=== PATIENT | female | born 1960 | race Caucasian/White ===

== ENCOUNTER 2019-12-24 15:28 | Outpatient (REF) | payer OTHER, SELFPAY ==
[2019-12-24 16:00] LABS: MANUAL DIFF FLAG NO
[2019-12-24 16:04] LABS: Basophils Percent Auto 0.5 % (0-2); Eosinophils Absolute Auto 0.1 X10*3/uL (0.0-0.4); Hematocrit 40.4 % (37-47); Hemoglobin 13.6 g/dl (12.0-16.0); Imm Gran Abs Auto 0.01 X10*3/uL (0.00-0.03); Imm Gran Pct Auto 0.2 % (0.0-0.4); Lymphocytes Absolute Auto 1.9 X10*3/uL (1.2-4.9); Lymphocytes Percent Auto 34.4 % (20-40); Mean Corpuscular HGB Conc 33.7 g/dl (31.0-35.0); Mean Corpuscular Hemoglobin 33.6 pg (27.0-33.0); Mean Corpuscular Volume 99.8 fL (80-98); Mean Platelet Volume 9.2 fL (9.4-12.3); Monocytes Absolute Auto 0.5 X10*3/uL (0.1-1.2); Neutrophils Absolute Auto 2.9 X10*3/uL (2.0-8.3); Neutrophils Percent Auto 53.9 % (45-73); Platelet Count 188 X10*3/uL (160-400); Red Blood Count 4.05 X10*6/uL (4.20-5.50); Red Cell Distribution Width 12.8 % (11.0-16.0); White Blood Count 5.5 X10*3/uL (4.8-10.8)
[2019-12-24 16:29] LABS: Alanine Aminotransferase 31 U/L (0-31); Albumin Level 4.1 g/dL (3.5-5.0); Alkaline Phosphatase 68 U/L (39-117); Anion Gap 11 (12-20); Aspartate Amino Transferase 28 U/L (5-31); Bilirubin Total 0.4 mg/dL (0.0-1.0); Blood Urea Nitrogen 16 mg/dL (9-16); C Reactive Protein 0.04 mg/dL (< or = 0.50); Carbon Dioxide 28 mmol/L (22-29); Chloride 106 mmol/L (96-108); Estimated Glomerular Filt Rate > 60; Glucose Random 92 mg/dL (60-115); Sodium 141 mmol/L (135-145); Total Protein 6.4 g/dL (6.5-8.0)
[2019-12-24 17:05] LABS: Erythrocyte Sedimentation Rate 2 MM/HR (0-20)
== END 2019-12-24 15:29 | disposition home or self-care (01) ==
LOC: HO.LAB 15:28
PROVIDERS: PCP Family Medicine; Visit Provider Student in an Organized Health Care Education/Training Program
DX: M05.9 Rheumatoid arthritis with rheumatoid factor, unspecified (principal); Z79.899 Other long term (current) drug therapy
CPT/HCPCS: 36415; 80053; 85025; 85652; 86140

== ENCOUNTER 2020-01-07 | Outpatient (REF) | payer OTHER, SELFPAY ==
[2020-01-07 13:49] LABS: MANUAL DIFF FLAG NO
[2020-01-07 13:57] LABS: Basophils Absolute Auto 0.1 X10*3/uL (0.0-0.2); Basophils Percent Auto 0.7 % (0-2); Eosinophils Percent Auto 0.4 % (0-4); Hematocrit 39.9 % (37-47); Hemoglobin 13.8 g/dl (12.0-16.0); Imm Gran Abs Auto 0.03 X10*3/uL (0.00-0.03); Imm Gran Pct Auto 0.4 % (0.0-0.4); Lymphocytes Absolute Auto 1.6 X10*3/uL (1.2-4.9); Lymphocytes Percent Auto 24.3 % (20-40); Mean Corpuscular HGB Conc 34.6 g/dl (31.0-35.0); Mean Corpuscular Hemoglobin 34.2 pg (27.0-33.0); Mean Corpuscular Volume 98.8 fL (80-98); Mean Platelet Volume 9.6 fL (9.4-12.3); Monocytes Absolute Auto 0.6 X10*3/uL (0.1-1.2); Monocytes Percent Auto 8.4 % (2-11); Neutrophils Absolute Auto 4.4 X10*3/uL (2.0-8.3); Neutrophils Percent Auto 65.8 % (45-73); Platelet Count 203 X10*3/uL (160-400); Red Blood Count 4.04 X10*6/uL (4.20-5.50); Red Cell Distribution Width 12.6 % (11.0-16.0); White Blood Count 6.7 X10*3/uL (4.8-10.8)
== END 2020-01-07 00:01 | disposition home or self-care (01) ==
LOC: HO.WFDLDS
PROVIDERS: Visit Provider Hospitalist
DX: L03.213 Periorbital cellulitis (principal)
CPT/HCPCS: 36415; 85025

== ENCOUNTER 2020-02-04 12:35 | Outpatient (REF) | payer OTHER, SELFPAY ==
--- NOTE | 2020-02-04 12:40 | MM_ITS ---
EXAMINATION: MM SCREENING DIGITAL BREAST TOMOSYNTHESIS, BILATERAL CLINICAL INFORMATION: Screening. Asymptomatic. The lifetime risk of breast cancer based on the Tyrer-Cuzick Model is 6%. COMPARISON: Mammography: 10/08/2018, 09/29/2017 TECHNIQUE: Digital breast tomosynthesis is performed in both the craniocaudal and mediolateral oblique views along with computer-aided detection (CAD). Synthesized 2D images are generated from the tomosynthesis. FINDINGS: There are scattered areas of fibroglandular density (ACR BI-RADS breast composition Category b). There are no significant masses, abnormal calcifications, or other abnormalities. The axilla and skin contours are unremarkable. No significant changes from prior studies. MM/MM tomosynthesis screening BI IMPRESSION: No mammographic evidence of malignancy. ASSESSMENT: BI-RADS 1: Negative RECOMMENDATION: Routine annual mammography screening. This patient's information was entered into a reminder system with a target due date for their next mammogram.
== END 2020-02-04 12:36 | disposition home or self-care (01) ==
LOC: HO.MAMMO 12:35
PROVIDERS: PCP Family Medicine; Visit Provider Family Medicine
DX: Z12.31 Encounter for screening mammogram for malignant neoplasm of breast (principal)
CPT/HCPCS: 77063; 77067

== ENCOUNTER → 2020-02-11 08:17 | Outpatient (BNVA) | payer OTHER, SELFPAY | PROVIDERS: PCP Family Medicine; Referring Provider Family Medicine; Visit Provider Student in an Organized Health Care Education/Training Program | DX: Z76.89 Persons encountering health services in other specified circumstances (principal) ==

== ENCOUNTER 2020-02-12 09:10 | Outpatient (REF) | payer OTHER, SELFPAY ==
--- NOTE | 2020-02-12 09:20 | XR_ITS ---
EXAMINATION: XR SHOULDER, RIGHT CLINICAL INFORMATION: M67.911 - Unspecified disorder of synovium and tendon, right shoulder COMPARISON: None TECHNIQUE: Right shoulder is imaged in 4 views. FINDINGS: There is no fracture, dislocation, or destructive process. The glenohumeral joint appears normal. The acromioclavicular alignment is normal. There is a punctate calcification adjacent to the greater tuberosity. This may be beyond the rotator cuff insertion. XR/XR shoulder RT min 2V IMPRESSION: Punctate calcification near distal rotator cuff. No bony abnormality.
== END 2020-02-12 09:11 | disposition home or self-care (01) ==
LOC: HO.XRAY 09:10
PROVIDERS: PCP Family Medicine; Visit Provider Student in an Organized Health Care Education/Training Program
DX: M67.911 Unspecified disorder of synovium and tendon, right shoulder (principal)
CPT/HCPCS: 73030

== ENCOUNTER 2020-05-01 11:03 | Outpatient (REF) | payer OTHER, SELFPAY ==
[2020-05-01 11:32] LABS: MANUAL DIFF FLAG NO
[2020-05-01 11:35] LABS: Basophils Absolute Auto 0.1 X10*3/uL (0.0-0.2); Basophils Percent Auto 0.6 % (0-2); Eosinophils Absolute Auto 0.4 X10*3/uL (0.0-0.4); Eosinophils Percent Auto 4.3 % (0-4); Hematocrit 41.2 % (37-47); Imm Gran Abs Auto 0.02 X10*3/uL (0.00-0.03); Imm Gran Pct Auto 0.2 % (0.0-0.4); Lymphocytes Absolute Auto 1.8 X10*3/uL (1.2-4.9); Lymphocytes Percent Auto 20.6 % (20-40); Mean Corpuscular Hemoglobin 33.2 pg (27.0-33.0); Mean Corpuscular Volume 97.6 fL (80-98); Mean Platelet Volume 8.8 fL (9.4-12.3); Monocytes Absolute Auto 0.5 X10*3/uL (0.1-1.2); Monocytes Percent Auto 6.1 % (2-11); Neutrophils Absolute Auto 5.9 X10*3/uL (2.0-8.3); Neutrophils Percent Auto 68.2 % (45-73); Platelet Count 340 X10*3/uL (160-400); Red Blood Count 4.22 X10*6/uL (4.20-5.50); Red Cell Distribution Width 12.1 % (11.0-16.0); White Blood Count 8.7 X10*3/uL (4.8-10.8)
[2020-05-01 12:23] LABS: Alanine Aminotransferase 18 U/L (0-31); Albumin Level 4.1 g/dL (3.5-5.0); Alkaline Phosphatase 86 U/L (39-117); Anion Gap 13 (12-20); Aspartate Amino Transferase 20 U/L (5-31); Bilirubin Total 0.6 mg/dL (0.0-1.0); Blood Urea Nitrogen 18 mg/dL (9-16); Calcium 9.2 mg/dL (8.4-10.2); Carbon Dioxide 27 mmol/L (22-29); Chloride 104 mmol/L (96-108); Estimated Glomerular Filt Rate > 60; Glucose Random 123 mg/dL (60-115); Potassium 4.7 mmol/L (3.3-5.1); Sodium 139 mmol/L (135-145); Total Protein 7.1 g/dL (6.5-8.0)
[2020-05-01 12:27] LABS: Erythrocyte Sedimentation Rate 27 MM/HR (0-20)
== END 2020-05-01 11:04 | disposition home or self-care (01) ==
LOC: HO.LAB 11:03
PROVIDERS: PCP Family Medicine; Visit Provider Student in an Organized Health Care Education/Training Program
DX: M05.9 Rheumatoid arthritis with rheumatoid factor, unspecified (principal)
CPT/HCPCS: 36415; 80053; 85025; 85652; 86140

== ENCOUNTER 2020-05-05 10:56 | Outpatient (REF) | payer OTHER, SELFPAY ==
--- NOTE | ~2020-05-05 | CT_ITS ---
EXAMINATION: CT CHEST WITHOUT CONTRAST CLINICAL INFORMATION: Abnormal findings of lung malin COMPARISON: 05/03/2018 TECHNIQUE: Multidetector volumetric CT imaging of the chest was done. Axial MIP volume rendering provided. Sagittal and coronal reformatted images were obtained. This CT examination was performed using dose optimization techniques as appropriate, variously including the following: *Automated exposure control *Adjustment of mA and/or kV according to patient size (this includes techniques or standardized protocols for targeted exams where dose is matched to indication/reason for exam; i.e. 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 Again seen is upper lobe predominant paraseptal emphysema. Again seen are areas of peripheral interlobular septal thickening and reticulation, greatest along the right anterior mediastinal margin. Overall the degree and distribution are similar to the prior study 05/03/2018. No honeycombing is seen. 5 mm left lower lobe pulmonary nodule image 313/580. Inferiorly there is an additional 5 mm left lower lobe nodule in image 382/580. These are both unchanged. There is a 2 to 3 mm right lower lobe nodule in image 248, unchanged. There is a punctate 1 mm right upper lobe nodule adjacent the fissure in image 213, unchanged. There is focal groundglass opacity and reticulation in the posterior periphery of the superior segment of the left lower lobe in image 214. Again seen is a background of mosaic lung attenuation with more conspicuous groundglass opacity in the right upper lobe. MEDIASTINUM: Again seen are prominent mediastinal lymph nodes, not convincingly changed from prior study. Among the largest are a 1.6 x 1.0 cm subcarinal lymph node and a 1.4 x 1.0 cm precarinal lymph node. Each of these measure slightly smaller than on the prior study. PLEURA: There is no pleural effusion. No pleural mass or thickening. AXILLA: No lymphadenopathy. UPPER ABDOMEN: Unremarkable. OSSEOUS STRUCTURES: Unremarkable. CT/CT chest wo con IMPRESSION: Similar findings to the prior study 05/03/2018. Again seen are findings of emphysema and some peripheral interlobular septal thickening and reticulation without honeycombing. There is a background of mosaic lung attenuation consistent with small airways disease. Again seen are bilateral subcentimeter pulmonary nodules, unchanged.
== END 2020-05-05 10:57 | disposition home or self-care (01) ==
LOC: HO.CT 10:56
PROVIDERS: PCP Family Medicine; Visit Provider Family Medicine
DX: R91.8 Other nonspecific abnormal finding of lung field (principal)
CPT/HCPCS: 71250

== ENCOUNTER 2020-07-10 09:12 | Outpatient (REF) | payer OTHER, SELFPAY ==
[2020-07-10 10:18] LABS: MANUAL DIFF FLAG NO
[2020-07-10 10:42] LABS: Basophils Percent Auto 0.4 % (0-2); Eosinophils Absolute Auto 0.3 X10*3/uL (0.0-0.4); Eosinophils Percent Auto 3.6 % (0-4); Hematocrit 41.5 % (37-47); Hemoglobin 13.9 g/dl (12.0-16.0); Imm Gran Abs Auto 0.03 X10*3/uL (0.00-0.03); Imm Gran Pct Auto 0.4 % (0.0-0.4); Lymphocytes Absolute Auto 1.9 X10*3/uL (1.2-4.9); Lymphocytes Percent Auto 27.1 % (20-40); Mean Corpuscular HGB Conc 33.5 g/dl (31.0-35.0); Mean Corpuscular Hemoglobin 32.7 pg (27.0-33.0); Mean Corpuscular Volume 97.6 fL (80-98); Monocytes Absolute Auto 0.5 X10*3/uL (0.1-1.2); Monocytes Percent Auto 6.9 % (2-11); Neutrophils Absolute Auto 4.3 X10*3/uL (2.0-8.3); Neutrophils Percent Auto 61.6 % (45-73); Platelet Count 225 X10*3/uL (160-400); Red Blood Count 4.25 X10*6/uL (4.20-5.50); Red Cell Distribution Width 13.5 % (11.0-16.0)
[2020-07-10 11:03] LABS: Alanine Aminotransferase 32 U/L (0-31); Albumin Level 4.3 g/dL (3.5-5.0); Alkaline Phosphatase 95 U/L (39-117); Anion Gap 16 (12-20); Aspartate Amino Transferase 24 U/L (5-31); Bilirubin Total 0.7 mg/dL (0.0-1.0); Blood Urea Nitrogen 14 mg/dL (9-16); Calcium 9.3 mg/dL (8.4-10.2); Carbon Dioxide 23 mmol/L (22-29); Chloride 107 mmol/L (96-108); Estimated Glomerular Filt Rate > 60; Glucose Random 106 mg/dL (60-115); Potassium 4.6 mmol/L (3.3-5.1); Sodium 141 mmol/L (135-145); Total Protein 6.8 g/dL (6.5-8.0)
[2020-07-10 11:21] LABS: Erythrocyte Sedimentation Rate 4 MM/HR (0-20)
== END 2020-07-10 09:13 | disposition home or self-care (01) ==
LOC: HO.LAB 09:12
PROVIDERS: PCP Family Medicine; Visit Provider Family Medicine
DX: J44.9 Chronic obstructive pulmonary disease, unspecified (principal); M06.9 Rheumatoid arthritis, unspecified; R42 Dizziness and giddiness
CPT/HCPCS: 36415; 80053; 82550; 85025; 85652

== ENCOUNTER 2020-09-18 13:05 | Outpatient (REF) | payer OTHER, SELFPAY ==
[2020-09-18 13:30] LABS: MANUAL DIFF FLAG NO
[2020-09-18 13:36] LABS: Basophils Percent Auto 0.3 % (0-2); Eosinophils Absolute Auto 0.1 X10*3/uL (0.0-0.4); Eosinophils Percent Auto 2.1 % (0-4); Hematocrit 41.6 % (37-47); Hemoglobin 14.3 g/dl (12.0-16.0); Imm Gran Abs Auto 0.02 X10*3/uL (0.00-0.03); Imm Gran Pct Auto 0.3 % (0.0-0.4); Lymphocytes Absolute Auto 2.3 X10*3/uL (1.2-4.9); Lymphocytes Percent Auto 34.5 % (20-40); Mean Corpuscular HGB Conc 34.4 g/dl (31.0-35.0); Mean Corpuscular Hemoglobin 33.9 pg (27.0-33.0); Mean Corpuscular Volume 98.6 fL (80-98); Mean Platelet Volume 8.9 fL (9.4-12.3); Monocytes Absolute Auto 0.5 X10*3/uL (0.1-1.2); Monocytes Percent Auto 7.2 % (2-11); Neutrophils Absolute Auto 3.6 X10*3/uL (2.0-8.3); Neutrophils Percent Auto 55.6 % (45-73); Platelet Count 225 X10*3/uL (160-400); Red Blood Count 4.22 X10*6/uL (4.20-5.50); Red Cell Distribution Width 13.1 % (11.0-16.0); White Blood Count 6.5 X10*3/uL (4.8-10.8)
[2020-09-18 13:54] LABS: Alanine Aminotransferase 26 U/L (0-31); Albumin Level 4.3 g/dL (3.5-5.0); Alkaline Phosphatase 96 U/L (39-117); Anion Gap 14 (12-20); Aspartate Amino Transferase 21 U/L (5-31); Bilirubin Total 0.6 mg/dL (0.0-1.0); Blood Urea Nitrogen 21 mg/dL (9-16); C Reactive Protein 0.06 mg/dL (< or = 0.50); Calcium 9.9 mg/dL (8.4-10.2); Carbon Dioxide 24 mmol/L (22-29); Chloride 105 mmol/L (96-108); Estimated Glomerular Filt Rate 55; Glucose Random 122 mg/dL (60-115); Potassium 4.4 mmol/L (3.3-5.1); Sodium 139 mmol/L (135-145); Total Protein 6.8 g/dL (6.5-8.0)
[2020-09-18 14:33] LABS: Erythrocyte Sedimentation Rate 4 MM/HR (0-20)
== END 2020-09-18 13:06 | disposition home or self-care (01) ==
LOC: HO.LAB 13:05
PROVIDERS: PCP Family Medicine; Visit Provider Internal Medicine
DX: M05.9 Rheumatoid arthritis with rheumatoid factor, unspecified (principal)
CPT/HCPCS: 36415; 80053; 85025; 85652; 86140

== ENCOUNTER 2021-02-05 07:49 | Outpatient (REF) | payer OTHER, SELFPAY ==
--- NOTE | ~2021-02-05 | MM_ITS ---
EXAMINATION: MM SCREENING DIGITAL BREAST TOMOSYNTHESIS, BILATERAL CLINICAL INFORMATION: Screening. Asymptomatic. The lifetime risk of breast cancer based on the Tyrer-Cuzick Model is 7%. COMPARISON: Mammography: 02/04/2020, 10/08/2018, 09/29/2017 TECHNIQUE: Digital breast tomosynthesis is performed in both the craniocaudal and mediolateral oblique views along with computer-aided detection (CAD). Synthesized 2D images are generated from the tomosynthesis. FINDINGS: There are scattered areas of fibroglandular density (ACR BI-RADS breast composition Category b). There are no significant masses, abnormal calcifications, or other abnormalities. MM/MM tomosynthesis screening BI IMPRESSION: No mammographic evidence of malignancy. ASSESSMENT: BI-RADS 1: Negative RECOMMENDATION: Routine annual mammography screening. This patient's information was entered into a reminder system with a target due date for their next mammogram.
[2021-02-05 08:42] LABS: MANUAL DIFF FLAG NO
[2021-02-05 09:33] LABS: Basophils Percent Auto 0.6 % (0-2); Eosinophils Absolute Auto 0.2 X10*3/uL (0.0-0.4); Eosinophils Percent Auto 3.5 % (0-4); Hematocrit 40.3 % (37.0-47.0); Hemoglobin 13.5 g/dl (12.0-16.0); Imm Gran Abs Auto 0.01 X10*3/uL (0.00-0.03); Imm Gran Pct Auto 0.2 % (0.0-0.4); Lymphocytes Absolute Auto 1.5 X10*3/uL (1.2-4.9); Lymphocytes Percent Auto 28.1 % (20-40); Mean Corpuscular HGB Conc 33.5 g/dl (31.0-35.0); Mean Corpuscular Hemoglobin 33.8 pg (27.0-33.0); Mean Platelet Volume 9.3 fL (9.4-12.3); Monocytes Absolute Auto 0.5 X10*3/uL (0.1-1.2); Monocytes Percent Auto 8.4 % (2-11); Neutrophils Absolute Auto 3.2 x10*3/uL (2.0-8.3); Neutrophils Percent Auto 59.2 % (45-73); Platelet Count 225 X10*3/uL (160-400); Red Blood Count 3.99 X10*6/uL (4.20-5.50); Red Cell Distribution Width 12.6 % (11.0-16.0); White Blood Count 5.4 X10*3/uL (4.8-10.8)
[2021-02-05 10:02] LABS: Alanine Aminotransferase 46 U/L (0-31); Albumin Level 4.1 g/dL (3.5-5.0); Alkaline Phosphatase 94 U/L (39-117); Anion Gap 11 (12-20); Aspartate Amino Transferase 32 U/L (5-31); Bilirubin Total 0.3 mg/dL (0.0-1.0); Blood Urea Nitrogen 20 mg/dL (9-16); C Reactive Protein 0.05 mg/dL (< or = 0.50); Calcium 8.7 mg/dL (8.4-10.2); Carbon Dioxide 23 mmol/L (22-29); Chloride 111 mmol/L (96-108); Cholesterol 173 mg/dL; Estimated Glomerular Filt Rate > 60; Glucose Random 104 mg/dL (60-115); HDL Cholesterol 54 mg/dL; LDL Cholesterol Calculated 101 mg/dl; Potassium 4.4 mmol/L (3.3-5.1); Sodium 141 mmol/L (135-145); Total Protein 6.3 g/dL (6.5-8.0); Triglycerides 91 mg/dL
[2021-02-05 10:18] LABS: Erythrocyte Sedimentation Rate 3 MM/HR (0-20)
== END 2021-02-05 07:50 | disposition home or self-care (01) ==
LOC: HO.MAMMO 07:49
PROVIDERS: Absent Provider Internal Medicine; PCP Family Medicine; Visit Provider Family Medicine
DX: Z12.31 Encounter for screening mammogram for malignant neoplasm of breast (principal); M05.9 Rheumatoid arthritis with rheumatoid factor, unspecified
CPT/HCPCS: 36415; 77063; 77067; 80053; 80061; 85025; 85652; 86140

== ENCOUNTER 2021-06-01 08:26 | Outpatient (REF) | payer OTHER, SELFPAY ==
[2021-06-01 08:41] LABS: MANUAL DIFF FLAG NO
[2021-06-01 09:19] LABS: Basophils Percent Auto 0.6 % (0-2); Eosinophils Absolute Auto 0.3 X10*3/uL (0.0-0.4); Eosinophils Percent Auto 4.5 % (0-4); Hematocrit 39.2 % (37.0-47.0); Hemoglobin 13.2 g/dl (12.0-16.0); Imm Gran Abs Auto 0.02 X10*3/uL (0.00-0.03); Imm Gran Pct Auto 0.3 % (0.0-0.4); Lymphocytes Absolute Auto 1.9 X10*3/uL (1.2-4.9); Lymphocytes Percent Auto 28.9 % (20-40); Mean Corpuscular HGB Conc 33.7 g/dl (31.0-35.0); Mean Corpuscular Hemoglobin 33.7 pg (27.0-33.0); Mean Platelet Volume 9.2 fL (9.4-12.3); Monocytes Absolute Auto 0.6 X10*3/uL (0.1-1.2); Monocytes Percent Auto 8.6 % (2-11); Neutrophils Absolute Auto 3.8 x10*3/uL (2.0-8.3); Neutrophils Percent Auto 57.1 % (45-73); Platelet Count 230 X10*3/uL (160-400); Red Blood Count 3.92 X10*6/uL (4.20-5.50); White Blood Count 6.6 X10*3/uL (4.8-10.8)
[2021-06-01 09:42] LABS: Alanine Aminotransferase 31 U/L (0-31); Alkaline Phosphatase 88 U/L (39-117); Anion Gap 11 (12-20); Aspartate Amino Transferase 22 U/L (5-31); Bilirubin Total 0.2 mg/dL (0.0-1.0); Blood Urea Nitrogen 19 mg/dL (9-16); C Reactive Protein 0.06 mg/dL (< or = 0.50); Calcium 9.2 mg/dL (8.4-10.2); Carbon Dioxide 25 mmol/L (22-29); Chloride 110 mmol/L (96-108); Estimated Glomerular Filt Rate > 60; Glucose Random 107 mg/dL (60-115); Potassium 4.8 mmol/L (3.3-5.1); Sodium 141 mmol/L (135-145); Total Protein 6.4 g/dL (6.5-8.0)
[2021-06-01 10:06] LABS: Erythrocyte Sedimentation Rate 4 MM/HR (0-20)
== END 2021-06-01 08:27 | disposition home or self-care (01) ==
LOC: HO.LAB 08:26
PROVIDERS: PCP Family Medicine; Visit Provider Internal Medicine
DX: M05.9 Rheumatoid arthritis with rheumatoid factor, unspecified (principal)
CPT/HCPCS: 36415; 80053; 85025; 85652; 86140

== ENCOUNTER 2021-11-16 12:43 | Outpatient (REF) | payer OTHER, SELFPAY ==
[2021-11-16 13:15] LABS: MANUAL DIFF FLAG NO
[2021-11-16 13:53] LABS: Basophils Absolute Auto 0.1 X10*3/uL (0.0-0.2); Basophils Percent Auto 0.8 % (0-2); Eosinophils Absolute Auto 0.2 X10*3/uL (0.0-0.4); Eosinophils Percent Auto 3.3 % (0-4); Hematocrit 39.7 % (37.0-47.0); Hemoglobin 13.7 g/dl (12.0-16.0); Imm Gran Abs Auto 0.02 X10*3/uL (0.00-0.03); Imm Gran Pct Auto 0.3 % (0.0-0.4); Lymphocytes Absolute Auto 2.4 X10*3/uL (1.2-4.9); Lymphocytes Percent Auto 32.9 % (20-40); Mean Corpuscular HGB Conc 34.5 g/dl (31.0-35.0); Mean Corpuscular Hemoglobin 33.4 pg (27.0-33.0); Mean Corpuscular Volume 96.8 fL (80.0-98.0); Mean Platelet Volume 9.2 fL (9.4-12.3); Monocytes Absolute Auto 0.6 X10*3/uL (0.1-1.2); Monocytes Percent Auto 7.8 % (2-11); Neutrophils Absolute Auto 3.9 x10*3/uL (2.0-8.3); Neutrophils Percent Auto 54.9 % (45-73); Platelet Count 217 X10*3/uL (160-400); Red Cell Distribution Width 13.1 % (11.0-16.0); White Blood Count 7.2 X10*3/uL (4.8-10.8)
[2021-11-16 14:25] LABS: Alanine Aminotransferase 33 U/L (0-31); Albumin Level 4.3 g/dL (3.5-5.0); Alkaline Phosphatase 76 U/L (39-117); Anion Gap 15 (12-20); Aspartate Amino Transferase 24 U/L (5-31); Bilirubin Total 0.3 mg/dL (0.0-1.0); Blood Urea Nitrogen 16 mg/dL (9-16); C Reactive Protein 0.05 mg/dL (< or = 0.50); Calcium 9.6 mg/dL (8.4-10.2); Carbon Dioxide 25 mmol/L (22-29); Chloride 106 mmol/L (96-108); Cholesterol 182 mg/dL; Estimated Glomerular Filt Rate > 60; Glucose Random 99 mg/dL (60-115); HDL Cholesterol 60 mg/dL; LDL Cholesterol Calculated 93 mg/dl; Potassium 4.3 mmol/L (3.3-5.1); Sodium 142 mmol/L (135-145); Total Protein 6.8 g/dL (6.5-8.0); Triglycerides 146 mg/dL
[2021-11-16 14:37] LABS: Erythrocyte Sedimentation Rate 5 MM/HR (0-20)
[2021-11-16 15:49] LABS: Reflex LDLD? No
== END 2021-11-16 12:44 | disposition home or self-care (01) ==
LOC: HO.LAB 12:43
PROVIDERS: Nurse Practitioner Family; PCP Family Medicine; Visit Provider Internal Medicine
DX: M05.9 Rheumatoid arthritis with rheumatoid factor, unspecified (principal)
CPT/HCPCS: 36415; 80053; 80061; 85025; 85652; 86140

== ENCOUNTER 2022-01-25 10:52 | Outpatient (REF) | payer OTHER, SELFPAY ==
[2022-01-25 11:20] LABS: MANUAL DIFF FLAG NO
[2022-01-25 12:48] LABS: Basophils Absolute Auto 0.1 X10*3/uL (0.0-0.2); Basophils Percent Auto 0.7 % (0-2); Eosinophils Absolute Auto 0.5 X10*3/uL (0.0-0.4); Eosinophils Percent Auto 5.4 % (0-4); Hematocrit 41.6 % (37.0-47.0); Hemoglobin 14.1 g/dl (12.0-16.0); Imm Gran Abs Auto 0.04 X10*3/uL (0.00-0.03); Imm Gran Pct Auto 0.5 % (0.0-0.4); Lymphocytes Absolute Auto 2.1 X10*3/uL (1.2-4.9); Lymphocytes Percent Auto 24.1 % (20-40); Mean Corpuscular HGB Conc 33.9 g/dl (31.0-35.0); Mean Corpuscular Hemoglobin 33.2 pg (27.0-33.0); Mean Corpuscular Volume 97.9 fL (80.0-98.0); Mean Platelet Volume 9.6 fL (9.4-12.3); Monocytes Absolute Auto 0.7 X10*3/uL (0.1-1.2); Monocytes Percent Auto 8.5 % (2-11); Neutrophils Absolute Auto 5.3 x10*3/uL (2.0-8.3); Neutrophils Percent Auto 60.8 % (45-73); Platelet Count 207 X10*3/uL (160-400); Red Blood Count 4.25 X10*6/uL (4.20-5.50); Red Cell Distribution Width 12.4 % (11.0-16.0); White Blood Count 8.7 X10*3/uL (4.8-10.8)
[2022-01-25 13:41] LABS: Erythrocyte Sedimentation Rate 36 MM/HR (0-20)
[2022-01-26 14:47] LABS: CRP High Sensitivity >10.0 mg/L
== END 2022-01-25 10:53 | disposition home or self-care (01) ==
LOC: HO.LAB 10:52
PROVIDERS: PCP Internal Medicine; Visit Provider Internal Medicine
DX: M05.9 Rheumatoid arthritis with rheumatoid factor, unspecified (principal)
CPT/HCPCS: 36415; 85025; 85652; 86141

== ENCOUNTER 2022-02-07 09:08 | Outpatient (REF) | payer OTHER, SELFPAY ==
--- NOTE | ~2022-02-07 | US_ITS ---
EXAMINATION: US EXTRACRANIAL CAROTID DUPLEX, BILATERAL CLINICAL INFORMATION: Smoker, left carotid bruit COMPARISON: Carotid duplex on 05/08/2014 TECHNIQUE: Real-time ultrasound and Doppler techniques (integrating B-mode 2-D vascular images, Doppler spectral analysis and color-flow Doppler imaging) were utilized to interrogate the extracranial carotid arteries, the vertebral arteries and proximal subclavian arteries bilaterally. The degree of stenosis is determined by criteria similar to NASCET. FINDINGS: Right Side: 1. There is mild atherosclerotic plaque seen in the bifurcation/proximal ICA region. 2. The common carotid artery PSV proximally is 111 cm/s and distally 87 cm/s. 3. The proximal internal carotid artery velocities are 98 cm/s systolic and 23 cm/s diastolic. 4. The proximal external carotid artery PSV is 125 cm/s. 5. The vertebral artery shows antegrade flow. 6. The subclavian artery waveforms are normal. Left Side: 1. There is mild atherosclerotic plaque seen in the bifurcation/proximal ICA region. 2. The common carotid artery PSV proximally is 107 cm/s and distally 107 cm/s. 3. The proximal internal carotid artery velocities are 69 cm/s systolic and 21 cm/s diastolic. 4. The proximal external carotid artery PSV is 122 cm/s. 5. The vertebral artery shows antegrade flow. 6. The subclavian artery waveforms are normal. US/US carotid duplex BI IMPRESSION: 1. RIGHT: Minimal, non-hemodynamically significant stenosis of the proximal right internal carotid artery corresponding to a 0-49% stenosis by velocity criteria. 2. LEFT: Minimal, non-hemodynamically significant stenosis of the proximal left internal carotid artery corresponding to a 0-49% stenosis by velocity criteria. 3. There is no change in the category severity of disease when compared to the previous study dated 05/08/2014.
--- NOTE | ~2022-02-07 | US_ITS ---
EXAMINATION: US THYROID CLINICAL INFORMATION: Goiter. COMPARISON: Ultrasound thyroid 11/05/2019 and 01/17/2018. TECHNIQUE: Linear transducer grayscale and color Doppler examination with attention to the region of the thyroid. FINDINGS: SIZE: Measurements of the thyroid lobes and nodules are given in sagittal, anteroposterior and transverse dimensions respectively. Right Thyroid Lobe: 3.9 x 1.5 x 0.90 cm, volume 2.8 mL. Previously 4.9 x 1.5 x 0.98 cm, volume 3.7 mL. Parenchyma: The gland echotexture is homogeneous. Thyroid vascularity is normal. Left Thyroid Lobe: 3.8 x 1.3 x 1.4 cm, volume 3.6 mL. Previously 4.1 x 1.8 x 1.3 cm, volume 5.0 mL. Parenchyma: The gland echotexture is homogeneous. Thyroid vascularity is normal. Isthmus: 0.51 cm in maximum AP dimension. Previously 0.34 cm. Estimated total number of nodules greater than or equal to 1 cm: 1. Sole Leveler nodules are described as follows: 1. Location: Isthmus. Size: 0.43 x 0.18 x 0.40 cm, volume 0.02 mL. Previously: 0.38 x 0.21 x 0.33 cm, volume 0.01 mL. Nodule characteristics: ACR TI-RADS total points: 0. ACR TI-RADS category: 1. Significant change in size (>/= 20% in 2 dimensions and minimal increase of 2 mm or 50% or greater increase in volume): None. Change in features: None. Change in ACR TI-RADS risk category: Not applicable. 2. Location: Right superior. Size: 0.28 x 0.56 x 0.24 cm, volume 0.01 mL. Previously: 0.32 x 0.26 x 0.26 cm, volume 0.01 mL. Nodule characteristics: Composition: Cystic(0). ACR TI-RADS total points: 0. ACR TI-RADS category: 1. Significant change in size (>/= 20% in 2 dimensions and minimal increase of 2 mm or 50% or greater increase in volume): None. Change in features: None. Change in ACR TI-RADS risk category: Not applicable. 3. Location: Right mid. Size: 0.60 x 0.35 x 0.40 cm, volume 0.04 mL. Previously: 1.1 x 0.45 x 1.1 cm, volume 0.28 mL. Nodule characteristics: Composition: Cystic(0). ACR TI-RADS total points: 0. ACR TI-RADS category: 1. Significant change in size (>/= 20% in 2 dimensions and minimal increase of 2 mm or 50% or greater increase in volume): None. Change in features: None. Change in ACR TI-RADS risk category: Not applicable. 4. Location: Left mid. Size: 0.44 x 0.14 x 0.32 cm, volume 0.01 mL. Previously: 0.49 x 0.31 x 0.31 cm, volume 0.02 mL. Nodule characteristics: Composition: Cystic(0). ACR TI-RADS total points: 0. ACR TI-RADS category: 1. Significant change in size (>/= 20% in 2 dimensions and minimal increase of 2 mm or 50% or greater increase in volume): None. Change in features: None. Change in ACR TI-RADS risk category: Not applicable. 5. Location: Left mid. Size: 1.5 x 0.80 x 0.85 cm, volume 0.50 mL. Previously: 1.3 x 0.73 x 0.96 cm, volume 0.48 mL. Nodule characteristics: Composition: Cystic(0). ACR TI-RADS total points: 0. ACR TI-RADS category: 1. Significant change in size (>/= 20% in 2 dimensions and minimal increase of 2 mm or 50% or greater increase in volume): None. Change in features: None. Change in ACR TI-RADS risk category: Not applicable. NODES: No lymphadenopathy is seen in the tissue surrounding the thyroid gland. US/US thyroid IMPRESSION: Multiple thyroid nodules are essentially stable and nonsuspicious at this time. Recommend continued follow-up. ACR TI-RADS RECOMMENDATION REFERENCE: Ultrasound-guided fine-needle aspiration, followup ultrasound, no further follow up. * TR1 (0 point) and TR 2 (2 points): No FNA or follow up. * TR3 (3 points): FNA if more than or equal to 2.5 cm in maximum dimension, followup ultrasound in 1, 3 and 5 years if 1.5 to 2.4 cm in maximum dimension. * TR4 (4-6 points): FNA if more than or equal to 1.5 cm in maximum dimension, followup ultrasound in 1, 2, 3 and 5 years if 1 to 1.4 cm in maximum dimension. * TR5 (more than or equal to 7 points): FNA if more than or equal to 1 cm in maximum dimension, followup ultrasound every year for 5 years if 0.5 to 0.9 cm in maximum dimension. * TR3, TR4 or TR5 nodules that are below the size threshold for followup receive no follow up.
== END 2022-02-07 09:09 | disposition home or self-care (01) ==
LOC: HO.HMGCX 09:08
PROVIDERS: PCP Family Medicine; Visit Provider Family Medicine
DX: I63.232 Cerebral infarction due to unspecified occlusion or stenosis of left carotid arteries (principal); E04.2 Nontoxic multinodular goiter
CPT/HCPCS: 76536; 93880

== ENCOUNTER 2022-02-08 12:25 | Outpatient (REF) | payer OTHER, SELFPAY ==
--- NOTE | ~2022-02-08 | MM_ITS ---
EXAMINATION: MM SCREENING DIGITAL BREAST TOMOSYNTHESIS, BILATERAL CLINICAL INFORMATION: Screening. Asymptomatic. The lifetime risk of breast cancer based on the Tyrer-Cuzick Model is 7%. COMPARISON: Mammography: 02/05/2021, 02/04/2020, 10/08/2018, 09/29/2017 TECHNIQUE: Digital breast tomosynthesis is performed in both the craniocaudal and mediolateral oblique views along with computer-aided detection (CAD). Synthesized 2D images are generated from the tomosynthesis. FINDINGS: There are scattered areas of fibroglandular density (ACR BI-RADS breast composition Category b). There are scattered bilateral benign round and rim calcifications. Right breast shows no interval mass or architectural abnormality. The bilateral axilla and skin contours are unremarkable. There is a faint smooth 0.7 cm focal nodular asymmetric density 2:30 approximately 8 cm from nipple, best appreciated on tomography. Patient will be recalled for additional imaging. MM/MM tomosynthesis screening BI IMPRESSION: Left: -Question 0.7 cm faint focal nodular asymmetric density central outer left breast 8 cm from nipple. Right: -No mammographic evidence of malignancy. ASSESSMENT: BI-RADS 0: Incomplete - Need Additional Imaging Evaluation RECOMMENDATION: 1. Additional views of the left breast (spot CC, spot ML). 2. Targeted ultrasound if warranted after review of the additional views. 3. Radiology department staff will contact the patient for additional imaging. This patient's information was entered into a reminder system with a target due date for their next mammogram.
== END 2022-02-08 12:26 | disposition home or self-care (01) ==
LOC: HO.MAMMO 12:25
PROVIDERS: PCP Family Medicine; Visit Provider Family Medicine
DX: Z12.31 Encounter for screening mammogram for malignant neoplasm of breast (principal)
CPT/HCPCS: 77063; 77067

== ENCOUNTER 2022-02-17 14:30 | Outpatient (REF) | payer OTHER, SELFPAY ==
--- NOTE | ~2022-02-17 | MM_ITS ---
EXAMINATION: MM DIAGNOSTIC DIGITAL BREAST TOMOSYNTHESIS, LEFT US DIAGNOSTIC ULTRASOUND BREAST, LEFT CLINICAL INFORMATION: Recall from screening for question of nodular asymmetric density central outer left breast under 1 cm. TC score 7%. COMPARISON: Mammography: 02/08/2022, 02/05/2021, 02/04/2020 TECHNIQUE: Digital breast tomosynthesis is performed. 2D images are generated from the tomosynthesis. The following views are obtained: Spot CC, spot MLO, ML. Ultrasound left breast is targeted to the outer quadrants using grayscale imaging and color Doppler without and with harmonics. FINDINGS: There are scattered areas of fibroglandular density (ACR BI-RADS breast composition Category b). The additional views show subtle smooth grouped nodularity central 3:00 position mid depth measuring just under 1 cm. Contours are smooth. The appearance suggests possible fibrocystic changes/grouped microcysts. Ultrasound left breast demonstrates group of 3 small cystic foci 2:30 position mid depth overall dimensions under 1 cm. There is subtle increased through-transmission of sound of largest moiety and no associated color flow. Finding likely corresponds to the mammography. Results are discussed with the patient at time of visit. Finding for recall is plate to represent benign grouped microcysts. As a precaution, patient will be reassessed again in 6 months with diagnostic mammography and ultrasound if warranted. MM/MM tomosynthesis added views L IMPRESSION: -Probable benign grouped microcysts corresponding to finding on recent screening exam. ASSESSMENT: BI-RADS 3: Probably Benign RECOMMENDATION: Diagnostic left mammography in 6 months. This patient's information was entered into a reminder system with a target due date for their next mammogram.
== END 2022-02-17 14:31 | disposition home or self-care (01) ==
LOC: HO.MAMMO 14:30
PROVIDERS: PCP Family Medicine; Visit Provider Family Medicine
DX: R92.2 Inconclusive mammogram (principal)
CPT/HCPCS: 76642; 77061; 77065

== ENCOUNTER 2022-06-01 14:11 | Outpatient (REF) | payer OTHER, SELFPAY ==
[2022-06-01 15:57] LABS: MANUAL DIFF FLAG NO
[2022-06-01 17:26] LABS: Basophils Absolute Auto 0.1 X10*3/uL (0.0-0.2); Basophils Percent Auto 0.6 % (0-2); Eosinophils Absolute Auto 0.4 X10*3/uL (0.0-0.4); Eosinophils Percent Auto 5.1 % (0-4); Hematocrit 40.5 % (37.0-47.0); Imm Gran Abs Auto 0.03 X10*3/uL (0.00-0.03); Imm Gran Pct Auto 0.3 % (0.0-0.4); Lymphocytes Absolute Auto 2.2 X10*3/uL (1.2-4.9); Mean Corpuscular HGB Conc 34.6 g/dl (31.0-35.0); Mean Corpuscular Hemoglobin 33.8 pg (27.0-33.0); Mean Corpuscular Volume 97.8 fL (80.0-98.0); Mean Platelet Volume 9.5 fL (9.4-12.3); Monocytes Absolute Auto 0.7 X10*3/uL (0.1-1.2); Monocytes Percent Auto 8.1 % (2-11); Neutrophils Absolute Auto 5.2 x10*3/uL (2.0-8.3); Neutrophils Percent Auto 59.9 % (45-73); Platelet Count 248 X10*3/uL (160-400); Red Blood Count 4.14 X10*6/uL (4.20-5.50); Red Cell Distribution Width 13.7 % (11.0-16.0); White Blood Count 8.6 X10*3/uL (4.8-10.8)
[2022-06-01 17:51] LABS: C Reactive Protein 0.25 mg/dL (< or = 0.50)
[2022-06-01 18:06] LABS: Alanine Aminotransferase 24 U/L (0-31); Anion Gap 15 (12-20); Aspartate Amino Transferase 21 U/L (5-31); Carbon Dioxide 25 mmol/L (22-29); Chloride 108 mmol/L (96-108); Erythrocyte Sedimentation Rate 13 MM/HR (0-20); Estimated Glomerular Filt Rate 60; Potassium 4.5 mmol/L (3.3-5.1); Sodium 143 mmol/L (135-145)
[2022-06-03 08:26] LABS: HBS Num1 53.67 mIU/mL (0-7.99); HBc Num1 0.08 S/CO (0.00-0.79); HBsAGNum1 0.42 S/CO (0.00-0.99); Hepatitis B Core Antibody Nonreactive (Nonreactive); Hepatitis B Surface Antigen Negative (Negative); ~HepC Num1 0.09 S/CO (0.00-0.79); ~Hepatitis A Antibody IgM Nonreactive (Nonreactive); ~Hepatitis B Surface Antibody REACTIVE (Nonreactive); ~Hepatitis C Antibody Nonreactive (Nonreactive)
[2022-06-03 17:09] LABS: TS Negative Control Passed; TS Panel A 0; TS Panel B 0; TS Positive Control Passed; TSpotTB Negative (Negative)
== END 2022-06-01 14:12 | disposition home or self-care (01) ==
LOC: HO.LAB 14:11
PROVIDERS: Absent Provider Family Medicine; PCP Family Medicine; Visit Provider Student in an Organized Health Care Education/Training Program
DX: Z11.59 Encounter for screening for other viral diseases (principal); Z11.7 Encounter for testing for latent tuberculosis infection; M65.312 Trigger thumb, left thumb; M05.9 Rheumatoid arthritis with rheumatoid factor, unspecified; E78.00 Pure hypercholesterolemia, unspecified; R42 Dizziness and giddiness; Z79.899 Other long term (current) drug therapy; F17.200 Nicotine dependence, unspecified, uncomplicated; Z71.6 Tobacco abuse counseling; N95.1 Menopausal and female climacteric states; Z72.89 Other problems related to lifestyle
CPT/HCPCS: 20550; 36415; 80051; 82550; 82565; 84450; 84460; 85025; 85652; 86140; 86481; 86704; 86706; 86709; 86803; 87340

== ENCOUNTER 2022-06-14 12:46 | Outpatient (REF) | payer OTHER, SELFPAY ==
--- NOTE | ~2022-06-14 | MM_ITS ---
EXAMINATION: BONE DENSITOMETRY CLINICAL INDICATION: Menopausal and female climacteric states. COMPARISON: None (current study represents initial baseline exam). TECHNIQUE: Using a [employer] DXA System (software version: 13.1) manufactured by [employer], dual-energy x-ray absorptiometry was performed of the lumbar spine and left hip. The images are of good technical quality. Summary results are attached. FINDINGS: AP SPINE L1-L4: BMD 0.971 g/cm2, Z-score -0.2, T-score -1.7, osteopenia. LEFT FEMUR, NECK: BMD 0.675 g/cm2, Z-score -1.2, T-score -2.6, osteoporosis. LEFT FEMUR, TOTAL: BMD 0.790 g/cm2, Z-score -0.6, T-score -1.7, osteopenia. IDENTIFIED RISK FACTORS: Rheumatoid arthritis. Current smoker. Low calcium intake. Secondary osteoporosis (early menopause). Chronic glucocorticoids. HISTORY OF FRACTURE: None listed. MEDICATIONS: None listed. MM/XR DEXA axial skeleton IMPRESSION: 1. DIAGNOSIS: Osteoporosis based on the lowest T-score value of -2.6 in the femoral neck applying World Health Organization criteria. 2. 10-YEAR FRACTURE RISK PREDICTION, FRAX: According to the guidelines, FRAX calculation should only be performed on patients in the osteopenia bone density category.?Therefore, FRAX was not performed on this patient.? 3. Treatment Recommendations: NOF guidelines recommend consideration for treatment in postmenopausal women and men age 50 and older presenting with the following: -A hip or vertebral (clinical or morphometric) fracture. -T-score less than or equal to -2.5 at the femoral neck or spine after appropriate evaluation to exclude secondary causes. -Low bone mass at the hip or spine and a 10-year fracture probability by FRAX of greater than or equal to 3% for hip fracture or greater than or equal to 20% for major osteoporotic fracture based on the [place] adapted WHO algorithm. 4. Other Recommendations: All treatment decisions require clinical judgment and consideration of individual patient factors, including patient preferences, comorbidities, previous drug use, risk factors not captured in the FRAX model (e.g. frailty, falls, vitamin D deficiency, increased bone turnover, interval significant decline in bone density) and possible under or overestimation of fracture risk by FRAX. Additional medical evaluation for secondary cause of low bone mineral density may be appropriate. FUTURE SCAN RECOMMENDATION: People with diagnosed cases of osteoporosis or at high risk for fracture should have regular bone mineral density tests. For patients eligible for Medicare, routine testing is allowed once every 2 years. The testing frequency can be increased to one year for patients who have rapidly progressing disease, those who are receiving or discontinuing medical therapy to restore bone mass, or have additional risk factors.
--- NOTE | ~2022-06-14 | XR_ITS ---
EXAMINATION: XR CHEST CLINICAL INFORMATION: COPD COMPARISON: Previous chest x-ray most recent from [address] from 2020 TECHNIQUE: 2 views of the chest were obtained. FINDINGS: The cardiac and mediastinal contours are stable. There is subsegmental atelectasis at the left lung base. The lungs are otherwise clear. Pulmonary nodules seen by chest CT are not appreciated. There is no pleural effusion or pneumothorax. There are degenerative changes of the spine. XR/XR chest 2V IMPRESSION: Subsegmental atelectasis at the left lung base.
== END 2022-06-14 12:47 | disposition home or self-care (01) ==
LOC: HO.MAMMO 12:46
PROVIDERS: Absent Provider Family Medicine; PCP Family Medicine; Visit Provider Student in an Organized Health Care Education/Training Program
DX: M05.9 Rheumatoid arthritis with rheumatoid factor, unspecified (principal); N95.1 Menopausal and female climacteric states; J44.9 Chronic obstructive pulmonary disease, unspecified; R06.2 Wheezing; Z13.820 Encounter for screening for osteoporosis; Z78.0 Asymptomatic menopausal state
CPT/HCPCS: 71046; 77080

== ENCOUNTER 2022-08-18 11:51 | Day surgery (SDC) | payer OTHER, SELFPAY ==
--- NOTE | 2022-08-17 10:28 | HO.ANESPROP2 ---
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 (Acute) Tendinopathy of right rotator cuff (Acute) Seropositive rheumatoid arthritis (Acute) Past Medical History Medical History (Updated 06/01/22 @ 15:39 by Orion Fleming MD) Back pain COPD (chronic obstructive pulmonary disease) Family history of malignant hyperthermia GERD (gastroesophageal reflux disease) History of pneumonia History of tachycardia Liver cyst Pericardial effusion Seropositive rheumatoid arthritis Thyroid nodule Family History Family History Mother HTN (hypertension) Sister Heart disease Surgical History Surgical History History of section Hx of colonoscopy Hx of dilation and curettage Social History Social History Household Members: Spouse and Children Alcohol intake: current Alcohol intake frequency: a few times a week Alcohol type: wine and hard liquor Patient Tobacco Use Status: Current everyday Tobacco user Tobacco use type: Cigarette Cigarettes Per Day: 8 Use of substances other than those prescribed or required for medical reasons: No Are you DNR?: No Advance Directives: No Advance Directives Information Provided: Yes Advance Directives Date on File: 01/07/20 Recently lost weight without trying: No Nutrition Risks: No Nutritional Risk Meds Allergies Allergy/AdvReac Type Severity Reaction Status Date / Time adhesive [ADHESIVE] Allergy Intermediate REDNESS Verified 08/12/22 15:23 levofloxacin [From LEVAQUIN] Allergy Intermediate ITCHINESS Verified 08/12/22 15:23 Sulfa (Sulfonamide Allergy Intermediate Itchiness Verified 08/12/22 15:23 Antibiotics) and Swelling sulfamethoxazole Allergy Intermediate PHOTOSENSIT Verified 08/12/22 15:23 [From BACTRIM] IVITY/RASH trimethoprim [From BACTRIM] Allergy Intermediate PHOTOSENSIT Verified 08/12/22 15:23 IVITY/RASH Home Medications Medication Instructions Recorded Confirmed Last Taken Type acebutolol 200 mg capsule 200 mg PO DAILY 01/07/20 08/12/22 Unknown History aspirin 81 mg tablet,delayed 81 mg PO DAILY 01/07/20 08/12/22 Unknown History release (Adult Aspirin Regimen) atorvastatin 20 mg tablet 20 mg PO BEDTIME 01/07/20 08/12/22 Unknown History coenzyme Q10 100 mg capsule 100 mg PO DAILY 01/07/20 08/12/22 Unknown History (CoQ-10) famotidine 40 mg tablet 40 mg PO DAILY 01/07/20 08/12/22 Unknown History gabapentin 300 mg capsule 300 mg PO DAILY 01/07/20 08/12/22 Unknown History magnesium 250 mg tablet 250 mg PO DAILY 01/07/20 08/12/22 Unknown History albuterol sulfate 90 mcg/actuation inhalation 05/27/22 06/01/22 Unknown History aerosol inhaler bupropion HCl 150 mg tablet,12 hr 150 mg PO DAILY 06/01/22 08/12/22 Unknown History sustained-release cetirizine 10 mg capsule (Zyrtec) 10 mg PO DAILY PRN Allergy Symptoms 06/01/22 08/12/22 Unknown History Exam Exam Date and Time: August 17, 2022 1028 Pertinent Lab Results Pertinent Lab Results: Laboratory Tests 11/16/21 06/01/22 06/01/22 13:13 15:55 15:55 WBC 8.6 Hgb 14.0 Hct 40.5 Plt Count 248 Sodium 143 Potassium 4.5 Chloride 108 Carbon Dioxide 25 BUN 16 Creatinine 0.95 Assessment and Plan Assessment Anesthesia Assessment: Chart Reviewed Documented by User: Judson Vaughn MD 08/18/22 12:25 [facility] Past Medical History Medical History (Updated 06/01/22 @ 15:39 by Orion Fleming MD) Back pain COPD (chronic obstructive pulmonary disease) Family history of malignant hyperthermia GERD (gastroesophageal reflux disease) History of pneumonia History of tachycardia Liver cyst Pericardial effusion Seropositive rheumatoid arthritis Thyroid nodule Family History Family History Mother HTN (hypertension) Sister Heart disease Family history of problems with anesthesia: No Surgical History Surgical History History of section Hx of colonoscopy Hx of dilation and curettage History of Problems with Anesthesia: No Social History Social History Household Members: Spouse and Children Alcohol intake: current Alcohol intake frequency: a few times a week Alcohol type: wine and hard liquor Patient Tobacco Use Status: Current everyday Tobacco user Tobacco use type: Cigarette Cigarettes Per Day: 8 Use of substances other than those prescribed or required for medical reasons: No Are you DNR?: No Advance Directives: No Advance Directives Information Provided: Yes Advance Directives Date on File: 01/07/20 Recently lost weight without trying: No Nutrition Risks: No Nutritional Risk Meds Allergies Allergy/AdvReac Type Severity Reaction Status Date / Time adhesive [ADHESIVE] Allergy Intermediate REDNESS Verified 08/12/22 15:23 levofloxacin [From LEVAQUIN] Allergy Intermediate ITCHINESS Verified 08/12/22 15:23 Sulfa (Sulfonamide Allergy Intermediate Itchiness Verified 08/12/22 15:23 Antibiotics) and Swelling sulfamethoxazole Allergy Intermediate PHOTOSENSIT Verified 08/12/22 15:23 [From BACTRIM] IVITY/RASH trimethoprim [From BACTRIM] Allergy Intermediate PHOTOSENSIT Verified 08/12/22 15:23 IVITY/RASH Home Medications Medication Instructions Recorded Confirmed Last Taken Type acebutolol 200 mg capsule 200 mg PO DAILY 01/07/20 08/12/22 Unknown History aspirin 81 mg tablet,delayed 81 mg PO DAILY 01/07/20 08/12/22 Unknown History release (Adult Aspirin Regimen) atorvastatin 20 mg tablet 20 mg PO BEDTIME 01/07/20 08/12/22 Unknown History coenzyme Q10 100 mg capsule 100 mg PO DAILY 01/07/20 08/12/22 Unknown History (CoQ-10) famotidine 40 mg tablet 40 mg PO DAILY 01/07/20 08/12/22 Unknown History gabapentin 300 mg capsule 300 mg PO DAILY 01/07/20 08/12/22 Unknown History magnesium 250 mg tablet 250 mg PO DAILY 01/07/20 08/12/22 Unknown History albuterol sulfate 90 mcg/actuation inhalation 05/27/22 06/01/22 Unknown History aerosol inhaler bupropion HCl 150 mg tablet,12 hr 150 mg PO DAILY 06/01/22 08/12/22 Unknown History sustained-release cetirizine 10 mg capsule (Zyrtec) 10 mg PO DAILY PRN Allergy Symptoms 06/01/22 08/12/22 Unknown History Exam Airway Mallampati Class: II TM Dist: >3cm Neck ROM: Full Assessment and Plan Assessment Anesthesia Assessment: Anesthesia Plan Discussed Final Anesthetic Review Family History of Problems with Anesthesia: No History of Problems with Anesthesia: No NPO: Yes ASA Class: II Final Preanesthetic Review: No Changes in Pt Med Stat, Meds/Allgs Chart Reviewed, Consent Obtained/Reviewed and Anes Risks/Benef Reviewed Patient Risk: Intermediate Procedure Risk: Low Anesthetic Plan Anesthetic Plan: MAC: Disposition: Standard PACU
[2022-08-18 11:55] VITALS: BMI 27.2
[2022-08-18 11:58] VITALS: BP 147/65; PULSE 84; RESP 16; TEMP 36.6; O2SAT 99
--- NOTE | 2022-08-18 12:14 | MHC.SHP ---
Pre-Procedural Eval Section A Date of Service: 08/18/22 Section B Chief Complaint: Encounter for screening for malignant neoplasm of Details of Present Illness: Seropositive rheumatoid arthritis Family History (Updated 01/24/22 @ 08:56 by Bryant Hua) Mother HTN (hypertension) Sister Heart disease Present Medications: see Short Stay Collaborative assessment Allergies: Allergies Allergy/AdvReac Type Severity Reaction Status Date / Time adhesive [ADHESIVE] Allergy Intermediate REDNESS Verified 08/12/22 15:23 levofloxacin [From LEVAQUIN] Allergy Intermediate ITCHINESS Verified 08/12/22 15:23 Sulfa (Sulfonamide Allergy Intermediate Itchiness Verified 08/12/22 15:23 Antibiotics) and Swelling sulfamethoxazole Allergy Intermediate PHOTOSENSIT Verified 08/12/22 15:23 [From BACTRIM] IVITY/RASH trimethoprim [From BACTRIM] Allergy Intermediate PHOTOSENSIT Verified 08/12/22 15:23 IVITY/RASH Review of Systems Review of Systems Comment: Ten point ROS negative Exam Exam Comment: Gen appear: No acute distress HEENT: no icterus Chest: No overt resp distress Abd: soft, nontender, nondistended Psych: Stable affect, answering questions appropriately Neuro: A/Ox3 noted to move all extremities spontaneously Ext: no peripheral edema Plan Diagnosis/Plan: Unchanged I have reviewed the history and physical and performed a pertinent physical examination on my patient. No changes have occurred unless specified. Time Spent With Patient Time: Total time managing care of this patient today ____ minutes.
[2022-08-18] MEDS: Lactated Ringers 1,000 ML 100 ML IVCONT (12:16)
--- NOTE | 2022-08-18 12:27 | P.OP_ITS ---
Operative Note Operative Note Date of Service: 08/18/22 Narrative: Procedure: Colonoscopy Indication: Personal history of polyps Endoscopist: Brina Bowie MD Anesthesia Provider: Dr Kofi Vaughn Anesthesia type: MAC Instrument: Olympus [id number]-[id number] Consent: Indication, risks vs benefits, and alternatives were discussed with the patient who gave written informed consent to proceed. EKG, pulse, pulse oximetry and blood pressure were monitored throughout the procedure. Please see anesthesia flowsheet. Procedure: The patient was brought to the procedure room and placed in the left lateral decubitus position. IV medications were administered by the anesthesia provider in attendance. A digital rectal exam was performed which was normal. Distal attachment cap was affixed to the tip of the scope and the colonoscope was then inserted through the anus and advanced through the colon to the cecum at 75 cm,and terminal ileum. Mucosa was carefully examined under high definition white light as the instrument was slowly withdrawn in a retrograde panoramic fashion. Retroflexion was performed in rectum. The procedure was not difficult. There were no immediate obvious complications. The quality of the prep was BBPS: 3+2+3 = adequate Withdrawal time 20 minutes. Limitations: No limitations. Findings: Mucosa: Normal to cecum and terminal ileum. Protruding lesions: * 1 flat polyp of size 10 mm in transverse colon. The polyp was lifted with Eleview. Cold snare polypectomy was performed. The polyp was completely removed and retrieved. * Medium external hemorrhoids without stigmata of recent bleeding. Impression: 1. Normal colon and terminal ileum mucosa 2. Total of 1 polyp removed from transverse colon. 3. External hemorrhoids Recommendations: - Follow path results. - Repeat colonoscopy in 3 years if the polyp is an adenoma or SSL.
[2022-08-18 13:14] VITALS: BP 90/60; PULSE 86; RESP 17; TEMP 36.4; O2SAT 97
[2022-08-18 13:31] VITALS: BP 124/65; PULSE 82; RESP 18; TEMP 36.1; O2SAT 99
== END 2022-08-18 13:53 | disposition home or self-care (01) ==
PROVIDERS: PCP Family Medicine; Visit Provider Internal Medicine
PROC: 0DJD8ZZ Inspection of Lower Intestinal Tract, Via Natural or Artificial Opening Endoscopic (ICD-10-PCS; CPT 45378; principal; 2022-08-18 12:30)
DX: Z12.11 Encounter for screening for malignant neoplasm of colon (principal); Z86.010 Personal history of colon polyps; D12.3 Benign neoplasm of transverse colon; K64.8 Other hemorrhoids; K64.4 Residual hemorrhoidal skin tags; K21.9 Gastro-esophageal reflux disease without esophagitis; M05.9 Rheumatoid arthritis with rheumatoid factor, unspecified; J44.9 Chronic obstructive pulmonary disease, unspecified; E04.1 Nontoxic single thyroid nodule; Z79.82 Long term (current) use of aspirin; Z79.899 Other long term (current) drug therapy; L23.1 Allergic contact dermatitis due to adhesives; Z88.1 Allergy status to other antibiotic agents; Z88.2 Allergy status to sulfonamides; F17.210 Nicotine dependence, cigarettes, uncomplicated
CPT/HCPCS: 45385; 45381; 88305

== ENCOUNTER 2022-08-23 15:06 | Outpatient (REF) | payer OTHER, SELFPAY ==
--- NOTE | ~2022-08-23 | MM_ITS ---
EXAMINATION: MM DIAGNOSTIC DIGITAL BREAST TOMOSYNTHESIS, LEFT CLINICAL INFORMATION: Short interval follow-up probable benign grouped microcysts corresponding to faint nodular asymmetry central upper outer left breast mid depth. TC score 7%. COMPARISON: Mammography: 02/17/2022, 02/08/2022 (BI-RADS 0) 02/05/2021, ultrasound left breast 02/17/2022. TECHNIQUE: Digital breast tomosynthesis is performed in both the craniocaudal and mediolateral oblique views along with computer-aided detection (CAD). Synthesized 2D images are generated from the tomosynthesis. FINDINGS: There are scattered areas of fibroglandular density (ACR BI-RADS breast composition Category b). The small nodular asymmetric density central upper outer quadrant mid depth is borderline decreased. There is no increasing attenuation or suspicious changes. Remainder left breast is unremarkable. There is no developing density or architectural abnormality or abnormal calcifications. The axilla and skin contours are unremarkable. Results are discussed with the patient at time of visit. MM/MM tomosynthesis diagnostic LT IMPRESSION: No significant changes from prior diagnostic exam. ASSESSMENT: BI-RADS 3: Probably Benign RECOMMENDATION: Diagnostic mammography at time of annual bilateral mammography, due in 6 months. This patient's information was entered into a reminder system with a target due date for their next mammogram.
== END 2022-08-23 15:07 | disposition home or self-care (01) ==
LOC: HO.MAMMO 15:06
PROVIDERS: PCP Family Medicine; Visit Provider Family Medicine
DX: N63.21 Unspecified lump in the left breast, upper outer quadrant (principal)
CPT/HCPCS: 77061; 77065

== ENCOUNTER 2022-09-16 07:07 | Outpatient (REF) | payer OTHER, SELFPAY ==
--- NOTE | ~2022-09-16 | XR_ITS ---
EXAMINATION: XR HIP, RIGHT CLINICAL INFORMATION: Pain COMPARISON: None available. TECHNIQUE: Two views of the right hip. FINDINGS: No acute fracture or dislocation. Mild degenerative changes of the right hip with acetabular osteophytes. Hip joint space is maintained. Right sacroiliac joint space is maintained. Soft tissues are unremarkable. Suspect transitional lumbosacral anatomy with a broad-based left transverse process at the lowest lumbar vertebral body fused with the sacrum. XR/XR hip RT min 2V IMPRESSION: Mild degenerative changes of the right hip.
== END 2022-09-16 07:08 | disposition home or self-care (01) ==
LOC: HO.XRAY 07:07
PROVIDERS: PCP Family Medicine; Visit Provider Family Medicine
DX: M25.551 Pain in right hip (principal)
CPT/HCPCS: 73502

== ENCOUNTER → 2022-09-19 09:03 | Outpatient (BNVA) | payer OTHER, SELFPAY | PROVIDERS: PCP Family Medicine; Visit Provider Nurse Practitioner Family ==

== ENCOUNTER 2022-11-15 07:39 | Outpatient (AMB) | payer OTHER, SELFPAY ==
--- NOTE | 2022-11-15 07:42 | A.OFFVIS_ITS ---
Intake Vital Signs 11/15/22 07:43 Height 4 ft 10 in Weight 139 lb 8.842 oz BMI 29.2 BP 136/68 Blood Pressure Location Rt brachial Position Sitting Pulse 80 Pulse Source Pulse Oximeter Temp 97.3 F Temp Source Skin Pulse Oximetry (%) 98 Oxygen Delivery Method Room Air Intake Visit Reasons: RA Intake Note: Here to follow up on RA. c/o pain and numbness in both middle toes x 'few months , left groin pain for a while . Previous trauma to the left hip. Hair loss. Painful swallowing x couple weeks . Left thumb trigger finger. 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: No Accompanied by: Self / Same As Patient Allergies adhesive [ADHESIVE] Allergy (Intermediate, Verified 11/15/22 07:42) REDNESS levofloxacin [From LEVAQUIN] Allergy (Intermediate, Verified 11/15/22 07:42) ITCHINESS Sulfa (Sulfonamide Antibiotics) Allergy (Intermediate, Verified 11/15/22 07:42) Itchiness and Swelling sulfamethoxazole [From BACTRIM] Allergy (Intermediate, Verified 11/15/22 07:42) PHOTOSENSITIVITY/RASH trimethoprim [From BACTRIM] Allergy (Intermediate, Verified 11/15/22 07:42) PHOTOSENSITIVITY/RASH Medication List - Last Reconciled 11/15/22 by Orion Fleming MD acebutolol 200 mg PO DAILY albuterol sulfate 90 mcg/actuation inhalation aspirin (Adult Aspirin Regimen) 81 mg PO DAILY atorvastatin 20 mg PO BEDTIME bupropion HCl 150 mg PO DAILY cetirizine (Zyrtec) 10 mg PO DAILY PRN coenzyme Q10 (CoQ-10) 100 mg PO DAILY famotidine 40 mg PO DAILY folic acid 3 mg (3 x 1 mg) PO DAILY gabapentin 600 mg PO BEDTIME magnesium 250 mg PO DAILY methotrexate sodium 10 mg (4 x 2.5 mg) PO QWEEK sarilumab (Kevzara) 200 mg (1.14 mL) subcut Q2W HPI HPI Comments History of Present Illness Details 62-year-old female with seropositive RA returns for follow-up. She states that she feels that she is falling apart . She has been having pain on the outer aspect of her right hip. Worse with walking. She also has been having sensation of tingling and numbness in burning pain in her middle toes bilaterally worse with walking. Trigger finger injection of her left index finger was successful. She does not have triggering of her left index any more however the injection of her left thumb trigger worked very well until about 1 month ago. She also is having pain on the inside of her left hip. Mentions that she feels her hair is falling off. Initial history: This is a 61-year-old female with seropositive RA presents our evaluation. 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 Patient states she feels relatively well overall. She is having triggering of her left thumb and left index fingers. 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 She is tolerating methotrexate, Kevzara and folic acid. [facility] Medical History Back pain COPD (chronic obstructive pulmonary disease) Family history of malignant hyperthermia GERD (gastroesophageal reflux disease) History of pneumonia History of tachycardia Liver cyst Nicotine dependence, cigarettes, uncomplicated Osteoporosis Pericardial effusion Seropositive rheumatoid arthritis Sessile serrated polyp of colon Thyroid nodule Surgical History History of section History of colonoscopy History of dilation and curettage Family History Mother HTN (hypertension) Sister Heart disease Social History Household Members: Spouse and Children Alcohol intake: current Alcohol intake frequency: a few times a month Alcohol type: wine and hard liquor Patient Tobacco Use Status: Current everyday Tobacco user Tobacco use type: Cigarette Cigarettes Per Day: 8 Advance Directives Date on File: 01/07/20 Review of Systems Const Reports fatigue Card Denies dyspnea Resp Denies dyspnea Musc Reports arthralgias, Reports numbness and Reports tingling Neuro Reports numbness and Reports tingling Endo Reports fatigue Physical Exam Vital Signs: Last Vital Signs Temp 97.3 F 11/15/22 07:43 Pulse 80 11/15/22 07:43 BP 136/68 11/15/22 07:43 Pulse Ox 98 11/15/22 07:43 Oxygen Delivery Method Room Air 11/15/22 07:43 BMI result Body Mass Index 29.2 Const General: cooperative, healthy appearing and comfortable Nutritional Appearance: overweight Orientation/consciousness: patient oriented x3 Limitations: no limitations HEENT Head: Yes normocephalic and Yes atraumatic Mouth: moist mucous membranes Resp Effort & Inspection: normal respiratory effort and able to speak in complete sentences Auscultation: clear to auscultation bilaterally Skin Other: Dry skin on the extensor aspect of her left hand, an area of dry scan as well as a dry scab on the extensor aspect of her right hand Neuro General: patient oriented x3 Extrem Other: No active synovitis. No tender joints. Triggering of her left thumb, firm nodule on the palmar aspect of the MCP joint of her left thumb and left index finger Right trochanteric bursa area tenderness Negative Andreas's test on the right side Tapping just inferior to the medial malleolus bilaterally elicits numbness and tingling going down her toes Normal nailfold capillaroscopy Office Procedures Joint Injection/Drain Joint Injection/Drain Primary Site: left trigger finger Injected: 20 mg of, Kenalog and other (0.2 mL of 1% lidocaine) Procedure: The patient tolerated the procedure well Coding Details: The palm of the left hand was prepped with ChloraPrep and alcohol.? Under topical ethyl chloride spray the [1st] flexor tendon sheath was injected with 20 mg of triamcinolone and 0.2 cc of 1% lidocaine.? The patient tolerated the procedure without any acute complications. Additional procedure code (CPT) needed (Trigger finger) Joint Injection/Drain Joint Injection/Drain Details: Right trochanteric bursa Injected: 40 mg of, Kenalog and other (2 mL of 1% lidocaine) Procedure: The patient tolerated the procedure well Coding Details: With the patient's consent, the right lateral hip area was prepped with Chloraprep and alcohol. Under a topical ethyl chloride spray the tender area over the trochanteric region was injected with 40 mg of Kenalog and 2 cc of 1% lidocaine. The patient tolerated the procedure with no adverse effects - Glenohumeral/Tronchanteric Bursa/Intraarticular Procedure code (CPT) selection complete (Trigger finger) Assessment & Plan Assessment & Plan (1) Seropositive rheumatoid arthritis: Comment: +RF+CCP, ?pericarditis dx 2014 MTX & HCQ started 2014 Enbrel added 2016 & was working relatively but couldn't continue due to insurance issues, switched to Humira which was ineffective Kevzara started 2018 effective HCQ DC in 2019 (didn't feel a difference when she stopped it when taking Azithromycin for an infection) Code(s): M05.9 - Rheumatoid arthritis with rheumatoid factor, unspecified Plan: 62-year-old with seropositive RA presents for follow-up. She is on methotrexate 15 mg weekly, Kevzara 200 mg every other week and folic acid 3 mg daily. Her RA is well controlled on this regimen. Patient has been complaining of hair loss recently. Will reduce methotrexate to 10 mg weekly. Continue Kevzara 200 mg every other week Labs today (2) Trigger finger of left hand: Code(s): M65.30 - Trigger finger, unspecified finger Qualifiers: Trigger finger location: thumb Qualified Code(s): M65.312 - Trigger thumb, left thumb Plan: left thumb trigger and left index trigger fingers where injected 06/09. Left index finger no longer triggers but left thumb triggering started to come back a month ago With patient's consent the left thumb was injected in clinic with Abel today. 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 Will monitor patient for side effects with frequent lab work. Advised patient to take folic acid daily to prevent complications of methotrexate. (4) Trochanteric bursitis of right hip: Code(s): M70.61 - Trochanteric bursitis, right hip Plan: Patient not interested in physical therapy for right hip trochanteric bursitis. With patient's consent right hip trochanteric bursa was injected in clinic today Patient is complaining of pain on the inside of her left hip. Will check left hip x-ray to evaluate for hip osteoarthritis (5) Tarsal tunnel syndrome of both lower extremities: Code(s): G57.53 - Tarsal tunnel syndrome, bilateral lower limbs Plan: vs peripheral neuropathy. Will order bilateral lower extremity EMG. (6) Rash: Code(s): R21 - Rash and other nonspecific skin eruption Plan: Follow-up with dermatology Plan I spent 52 minutes reviewing patient's chart, evaluating patient, ordering diagnostic workup, counseling patient and documenting in the chart Orders: Orders Comprehensive Met. Panel Today M05.9 - Rheumatoid arthritis with rheumatoid factor, unspecified C Reactive Protein Today M05.9 - Rheumatoid arthritis with rheumatoid factor, unspecified Complete Blood Count Auto Diff Today M05.9 - Rheumatoid arthritis with rheumatoid factor, unspecified Erythrocyte Sedimentation Rate Today M05.9 - Rheumatoid arthritis with rheumatoid factor, unspecified XR hip LT min 2V Today M05.9 - Rheumatoid arthritis with rheumatoid factor, unspecified NE electromyogram (EMG) Today G57.53 - Tarsal tunnel syndrome, bilateral lower limbs AMB Joint Injection/Aspiration Today M70.61 - Trochanteric bursitis, right hip AMB Joint Injection/Aspiration Today M65.30 - Trigger finger, unspecified finger Medications: Changed 2 From methotrexate sodium 15 mg (6 x 2.5 mg) PO QWEEK 72 tabs 0RF To methotrexate sodium 10 mg (4 x 2.5 mg) PO QWEEK 60 tabs 0RF Coding Level of Care Code Est Pt Level 5 (53010) Diagnoses Seropositive rheumatoid arthritis M05.9 Trigger finger of left hand M65.312 Trigger finger location: thumb correction methotrexate user Z79.899 Trochanteric bursitis of right hip M70.61 Tarsal tunnel syndrome of both lower extremities G57.53 Rash R21 CPT Codes Coding - Joint 7: 82850 - Glenohumeral/Tronchanteric Bursa/Intraarticular ([id number])
[2022-11-15 07:43] VITALS: BP 136/68; PULSE 80; TEMP 36.3; O2SAT 98; BMI 29.2
== END 2022-11-15 08:29 | disposition home or self-care (01) ==
PROVIDERS: PCP Family Medicine; Visit Provider Student in an Organized Health Care Education/Training Program
DX: M05.79 Rheumatoid arthritis with rheumatoid factor of multiple sites without organ or systems involvement (principal); M65.312 Trigger thumb, left thumb; Z79.899 Other long term (current) drug therapy; M70.61 Trochanteric bursitis, right hip; G57.53 Tarsal tunnel syndrome, bilateral lower limbs; R21 Rash and other nonspecific skin eruption
CPT/HCPCS: 20550; 20610; 99215

== ENCOUNTER 2022-11-15 07:39 | Outpatient (REF) | payer OTHER, SELFPAY ==
--- NOTE | ~2022-11-15 | XR_ITS ---
EXAMINATION: XR HIP, LEFT CLINICAL INFORMATION: Rheumatoid arthritis with rheumatoid factor. COMPARISON: None available. TECHNIQUE: AP and frog-leg lateral views of the left hip. FINDINGS: There is bony demineralization. There is mild cortical irregularity of the left acetabular roof. There is a minimal peripheral osteophyte of the left acetabular roof. No fracture or dislocation is seen. The left femoral head is smooth. The left sacroiliac joint is well-maintained, and the pubic symphysis is intact. There are femoral atherosclerotic calcifications. XR/XR hip LT min 2V IMPRESSION: 1. There is very mild osteoarthritic change of the left hip. 2. No fracture or dislocation is seen.
[2022-11-15 08:48] LABS: MANUAL DIFF FLAG NO
[2022-11-15 08:57] LABS: Basophils Absolute Auto 0.1 X10*3/uL (0.0-0.2); Basophils Percent Auto 0.8 % (0-2); Eosinophils Absolute Auto 0.3 X10*3/uL (0.0-0.4); Hematocrit 42.9 % (37.0-47.0); Hemoglobin 14.3 g/dl (12.0-16.0); Imm Gran Abs Auto 0.02 X10*3/uL (0.00-0.03); Imm Gran Pct Auto 0.3 % (0.0-0.4); Lymphocytes Percent Auto 31.4 % (20-40); Mean Corpuscular HGB Conc 33.3 g/dl (31.0-35.0); Mean Corpuscular Hemoglobin 33.3 pg (27.0-33.0); Mean Corpuscular Volume 99.8 fL (80.0-98.0); Mean Platelet Volume 9.3 fL (9.4-12.3); Monocytes Absolute Auto 0.6 X10*3/uL (0.1-1.2); Monocytes Percent Auto 9.3 % (2-11); Neutrophils Absolute Auto 3.4 x10*3/uL (2.0-8.3); Neutrophils Percent Auto 54.2 % (45-73); Platelet Count 220 X10*3/uL (160-400); White Blood Count 6.2 X10*3/uL (4.8-10.8)
[2022-11-15 09:32] LABS: Alanine Aminotransferase 38 U/L (0-31); Albumin Level 4.2 g/dL (3.5-5.0); Alkaline Phosphatase 86 U/L (39-117); Anion Gap 10 (12-20); Aspartate Amino Transferase 26 U/L (5-31); Bilirubin Total 0.5 mg/dL (0.0-1.0); Blood Urea Nitrogen 17 mg/dL (9-16); C Reactive Protein < 0.10 mg/dL (< or = 0.50); Calcium 9.3 mg/dL (8.4-10.2); Carbon Dioxide 27 mmol/L (22-29); Chloride 108 mmol/L (96-108); Estimated Glomerular Filt Rate 56; Glucose Random 126 mg/dL (60-115); Potassium 4.3 mmol/L (3.3-5.1); Sodium 141 mmol/L (135-145); Total Protein 6.9 g/dL (6.5-8.0)
[2022-11-15 09:37] LABS: Erythrocyte Sedimentation Rate 2 MM/HR (0-20)
== END 2022-11-15 07:40 | disposition home or self-care (01) ==
LOC: HO.XRAY 07:39
PROVIDERS: PCP Family Medicine; Visit Provider Student in an Organized Health Care Education/Training Program
DX: M70.61 Trochanteric bursitis, right hip (principal); M05.9 Rheumatoid arthritis with rheumatoid factor, unspecified; G57.53 Tarsal tunnel syndrome, bilateral lower limbs; R21 Rash and other nonspecific skin eruption; Z79.899 Other long term (current) drug therapy
CPT/HCPCS: 20610; 36415; 73502; 80053; 85025; 85652; 86140

== ENCOUNTER 2022-11-25 14:58 | Outpatient (AMB) | payer OTHER, SELFPAY ==
--- NOTE | 2022-11-25 08:00 | MHC.OFFVIS ---
Intake Intake Visit Reasons: LDCT SD Allergies adhesive [ADHESIVE] Allergy (Intermediate, Verified 11/15/22 07:42) REDNESS levofloxacin [From LEVAQUIN] Allergy (Intermediate, Verified 11/15/22 07:42) ITCHINESS Sulfa (Sulfonamide Antibiotics) Allergy (Intermediate, Verified 11/15/22 07:42) Itchiness and Swelling sulfamethoxazole [From BACTRIM] Allergy (Intermediate, Verified 11/15/22 07:42) PHOTOSENSITIVITY/RASH trimethoprim [From BACTRIM] Allergy (Intermediate, Verified 11/15/22 07:42) PHOTOSENSITIVITY/RASH HPI LDCT SD HPI Details Initial visit for this 62yo smoker with a 40PYH. Patient has been smoking since age 13 for 49 years at 1ppd. Currently down to 1/4ppd . Denies marijuana use. Denies second hand smoke exposure. Denies exposure to chemicals or substances like asbestos. . Denies known family history of lung cancer. Denies personal history of cancers. . Denies chest CT in last year. A prior chest CT in 2020 noted stable nodules and some prominent mediastinal nodes. . Denies recent travel outside the [place]. Denies recent respiratory illness or recent hospitalization for respiratory issues. Reports testing positive for COVID. x 2 after vaccines Admits receiving COVID Vaccine. x 5. . Denies fever, chills, new/worsening cough, hemoptysis, hoarseness or dysphagia. Denies significant chest pain, significant dyspnea or unintentional weight loss. Patient Lung Cancer Screening Questionnaire reviewed with patient by provider. . Shared Decision Making Completed. Patient meets criteria. Discussed in detail with patient, the risk vs benefit of LDCT screening. Patient consents to proceed with scan. Discussed smoking cessation. [facility] Medical History (Updated 11/25/22 @ 15:16 by Magali Ramos PA-C) Seropositive rheumatoid arthritis COPD (chronic obstructive pulmonary disease) Nicotine dependence, cigarettes, uncomplicated Osteoporosis Sessile serrated polyp of colon GERD (gastroesophageal reflux disease) Thyroid nodule Liver cyst Back pain History of pneumonia Pericardial effusion History of tachycardia Family history of malignant hyperthermia Surgical History History of dilation and curettage History of colonoscopy History of section Family History Mother HTN (hypertension) Sister Heart disease Social History (Updated 11/25/22 @ 15:16 by Magali Ramos PA-C) Household Members: Spouse and Children Alcohol intake: current Alcohol intake frequency: a few times a month Alcohol type: wine and hard liquor Patient Tobacco Use Status: Current everyday Tobacco user Tobacco use type: Cigarette Cigarettes Per Day: 5 Years Smoked: onset 13yo, 1ppd x 49yrs, now 1/4ppd - 40pyh Advance Directives Date on File: 01/07/20 Assessment & Plan Assessment & Plan (1) Nicotine dependence, cigarettes, uncomplicated: Comment: (current smoker - onset 13yo, 1ppd x 49yrs, now 1/4ppd - 40pyh) Code(s): F17.210 - Nicotine dependence, cigarettes, uncomplicated Plan: - SDM visit completed today in office. - Patient meets criteria for LDCT for lung cancer screening purposes and is asymptomatic. - Smoking cessation counseling offered. Patients can always call [phone]. - Will arrange for a LDCT scan of the chest for screening purposes at [facility]. - Risks, benefits, and alternatives were discussed in detail and the patient agrees to proceed. - Risks discussed include but are not limited to: radiation exposure, anxiety during testing and while awaiting results, false negatives, false positives and possibility of additional intervention such as further imaging or surgical procedures for benign disease. - Benefits are obviously detection of lung cancer at an early stage which can lead to improved outcomes. - Discussed the importance of screening program compliance with adherence to yearly LDCT scan as scheduled - or sooner interval scans for personalized screening regimen. - Discussed follow up plan. Our office will send a letter discussing results and if needed set up phone call and office visit based on CT findings. - Patient educated on results categorization and the management decisions for suspicious findings potentially found on the screening LDCT scan. Any patient with a Lung RADS score of 3 or 4 will be reviewed by a multidisciplinary team at [facility] to form a plan of action in regards to scan findings. - If further work up is warranted for a suspicious lung finding this will be followed by the Lung Cancer Screening program in conjunction with the Thoracic Surgery Department at [facility]. - A copy of the office note and LDCT will be sent to the patient's PCP - as well as documentation on any associated further plans of care. - Incidental findings on LDCT are the PCP's responsibility. These findings are indicated with an S finding on the LDCT Assessment. A note discussing the findings will be sent to the PCP who is then responsible for further management. - All questions answered.? Coding Level of Care Code Lung Cancer Screening G0296 Diagnoses Nicotine dependence, cigarettes, uncomplicated F17.210
== END 2022-11-25 15:28 | disposition home or self-care (01) ==
PROVIDERS: PCP Family Medicine; Visit Provider Physician Assistant Medical
DX: F17.210 Nicotine dependence, cigarettes, uncomplicated (principal)
CPT/HCPCS: G0296

== ENCOUNTER 2022-11-25 15:26 | Outpatient (REF) | payer OTHER, SELFPAY ==
--- NOTE | ~2022-11-25 | CT_ITS ---
EXAMINATION: CT CHEST SCREENING CLINICAL INFORMATION: Nicotine dependence; current smoker; 49 pack-year smoking history. COMPARISON: Prior chest CT examinations, most recently 05/05/2020. TECHNIQUE: Multidetector volumetric CT imaging of the chest is performed without contrast using low dose technique. Additional 2D coronal and sagittal reformatted images and axial 3D maximum intensity projection (MIP) images are generated on the CT workstation. This CT examination was performed using dose optimization techniques as appropriate, variously including the following: *Automated exposure control *Adjustment of mA and/or kV according to patient size (this includes techniques or standardized protocols for targeted exams where dose is matched to indication/reason for exam; i.e. extremities or head) *Use of iterative reconstruction technique DLP: 41 mGy-cm FINDINGS: LUNGS: At the posterolateral left base (5:227 and 280), stable (upon remeasurement) 4 mm and 6 mm noncalcified nodules are seen. These are unchanged from multiple prior CT examinations, including 05/03/2018 (and 4:302 and 370). There are 2 further benign, stable scattered 1 mm calcified and noncalcified bilateral lung nodules (5:93 and 290). No new nodule, mass, infiltrate or groundglass opacity is seen. There is no generalized increase in peripheral interlobular septal markings. There is a focus of minor scar/subsegmental atelectasis noted within the lingula, without associated focal airway obstruction. No small airway thickening is seen. The central airways appear patent. MEDIASTINUM: The thyroid is unremarkable. There is no thoracic aortic aneurysm. There are mild atherosclerotic calcifications of the great vessel origins and thoracic aorta. No mediastinal or hilar lymphadenopathy is seen. CORONARY ARTERY CALCIFICATION: Mild. PLEURA: There is no pleural effusion. No pleural mass or thickening. AXILLA: No lymphadenopathy. UPPER ABDOMEN: Unremarkable OSSEOUS STRUCTURES: There is multi-level thoracic spondylosis. No acute or aggressive osseous abnormality is seen. CT/CT lung screening IMPRESSION: 1. There are benign, stable bilateral pulmonary nodules. 2. No new nodule, mass, infiltrate or groundglass opacity is seen. 3. There is no thoracic lymphadenopathy or pleural effusion. 4. No aggressive osseous lesion is seen. ASSESSMENT: Lung-RADS category 2: Benign RECOMMENDATION: Routine annual low-dose CT screening in 12 months.
== END 2022-11-25 15:27 | disposition home or self-care (01) ==
LOC: HO.CT 15:26
PROVIDERS: PCP Family Medicine; Visit Provider Physician Assistant Medical
DX: Z12.2 Encounter for screening for malignant neoplasm of respiratory organs (principal); F17.210 Nicotine dependence, cigarettes, uncomplicated
CPT/HCPCS: 71271; G0296

== ENCOUNTER 2022-12-23 08:30 | Outpatient (REF) | payer OTHER, SELFPAY | END 2022-12-23 08:31 | disposition home or self-care (01) | LOC: HO.NEURO 08:30 | PROVIDERS: PCP Family Medicine; Visit Provider Student in an Organized Health Care Education/Training Program | DX: G57.53 Tarsal tunnel syndrome, bilateral lower limbs (principal) | CPT/HCPCS: 95886; 95910 ==

== ENCOUNTER → 2022-12-23 08:33 | Outpatient (BNV) | payer OTHER, SELFPAY | PROVIDERS: PCP Family Medicine; Visit Provider Physical Medicine & Rehabilitation | DX: M79.672 Pain in left foot (principal); M79.671 Pain in right foot | CPT/HCPCS: 95886; 95910 ==

== ENCOUNTER 2023-01-20 08:26 | Outpatient (REF) | payer OTHER, SELFPAY ==
[2023-01-20 12:25] LABS: Free T4 (Free Thyroxine) 0.88 ng/dL (0.71-1.85)
[2023-01-25 11:14] LABS: Thyroglobulin Antibody <1 IU/mL (<=1); Thyroglobulin Level 30.5 ng/mL
[2023-01-27 10:44] LABS: Thyroglobulin 34.4 ng/mL
== END 2023-01-20 08:27 | disposition home or self-care (01) ==
LOC: HO.WFDLDS 08:26
PROVIDERS: Visit Provider Family Medicine
DX: E78.00 Pure hypercholesterolemia, unspecified (principal); E04.1 Nontoxic single thyroid nodule; Z79.899 Other long term (current) drug therapy
CPT/HCPCS: 36415; 82550; 84432; 84439; 86800

== ENCOUNTER 2023-02-06 08:36 | Outpatient (AMB) | payer OTHER, SELFPAY ==
[2023-02-06 08:48] VITALS: BP 132/68; PULSE 58; O2SAT 98; BMI 29.3
--- NOTE | 2023-02-06 08:52 | AM.OFFWIN_ITS ---
Intake Vital Signs 02/06/23 08:48 Height 4 ft 10 in Weight 140 lb BMI 29.3 BP 132/68 Blood Pressure Location Lt brachial Position Sitting Pulse 58 Pulse Source Pulse Oximeter Pulse Oximetry (%) 98 Oxygen Delivery Method Room Air Intake Visit Reasons: eye issue Intake Note: Patient is here with left eye irritation. Patient Tobacco Use Status: Current everyday Tobacco user Allergies adhesive [ADHESIVE] Allergy (Intermediate, Verified 02/06/23 10:13) REDNESS levofloxacin [From LEVAQUIN] Allergy (Intermediate, Verified 02/06/23 10:13) ITCHINESS Sulfa (Sulfonamide Antibiotics) Allergy (Intermediate, Verified 02/06/23 10:13) Itchiness and Swelling sulfamethoxazole [From BACTRIM] Allergy (Intermediate, Verified 02/06/23 10:13) PHOTOSENSITIVITY/RASH trimethoprim [From BACTRIM] Allergy (Intermediate, Verified 02/06/23 10:13) PHOTOSENSITIVITY/RASH Medication List - Last Reconciled 02/06/23 by Orion Chen CNP acebutolol 200 mg PO DAILY albuterol sulfate 90 mcg/actuation inhalation aspirin (Adult Aspirin Regimen) 81 mg PO DAILY atorvastatin 20 mg PO BEDTIME bupropion HCl 150 mg PO DAILY carisoprodol 350 mg PO BID PRN cetirizine (Zyrtec) 10 mg PO DAILY PRN coenzyme Q10 (CoQ-10) 100 mg PO DAILY famotidine 40 mg PO DAILY folic acid 3 mg (3 x 1 mg) PO DAILY gabapentin 600 mg PO BEDTIME magnesium 250 mg PO DAILY methotrexate sodium 10 mg (4 x 2.5 mg) PO QWEEK sarilumab (Kevzara) 200 mg (1.14 mL) subcut Q2W HPI HPI Comments History of Present Illness Details 62 y/o female presents with c/o scratch /gritty left eye. She reports associated photosensitivity, clear drainage, and dry yellow crust upon waking up in the morning. She notes that her symptoms have been ongoing for the past 3 days. She tried otc eye drops without improvement. No head ache, severe visual disturbances, fever, chills, body aches, fatigue, or weakness. No sick contact. [facility] Medical History (Updated 02/06/23 @ 10:32 by Orion Chen CNP) Seropositive rheumatoid arthritis COPD (chronic obstructive pulmonary disease) Nicotine dependence, cigarettes, uncomplicated Osteoporosis Sessile serrated polyp of colon GERD (gastroesophageal reflux disease) Thyroid nodule Liver cyst Back pain History of pneumonia Pericardial effusion History of tachycardia Family history of malignant hyperthermia Surgical History History of dilation and curettage History of colonoscopy History of section Family History Mother HTN (hypertension) Sister Heart disease Social History (Updated 11/25/22 @ 15:16 by Magali Ramos PA-C) Household Members: Spouse and Children Alcohol intake: current Alcohol intake frequency: a few times a month Alcohol type: wine and hard liquor Patient Tobacco Use Status: Current everyday Tobacco user Tobacco use type: Cigarette Cigarettes Per Day: 5 Years Smoked: onset 13yo, 1ppd x 49yrs, now 1/4ppd - 40pyh Advance Directives Date on File: 01/07/20 Review of Systems Const Details: Const Denies chills, Denies fatigue, Denies fever(s), Denies headache(s) and Denies weakness ENT Reports as per HPI Resp Denies cough, Denies dyspnea, Denies wheezing and Denies other (shortness of breath) Cardio Denies chest pain, Denies lightheadedness, Denies dyspnea and Denies other (palpitations) Neuro Denies dizziness, Denies headache(s), Denies numbness, Denies tingling and Denies weakness Psych Denies anxiety, Denies depression, Denies memory?loss Endo Denies fatigue Aller/Immun Denies wheezing Physical Exam Vital Signs: Last Vital Signs Pulse 58 02/06/23 08:48 BP 132/68 02/06/23 08:48 Pulse Ox 98 02/06/23 08:48 Oxygen Delivery Method Room Air 02/06/23 08:48 BMI result Body Mass Index 29.3 Const Other: Const General: well developed; No acute distress Nutritional Appearance: well nourished Orientation/consciousness: patient oriented x3 HEENT Head: Yes normocephalic and Yes atraumatic Eyes General: appearance normal, both eyes and all related structures. Left conjunc tiva with mild erythema, no drainage or discharge noted Pupils: Equal, round and reactive pupils present EOM: EOMs intact bilaterally Resp Effort & Inspection: normal respiratory effort Auscultation: clear to auscultation bilaterally Cardio Rate: regular rate Rhythm: regular rhythm Heart sounds: S1 normal heart sound present, S2 normal heart sound present, no gallops, no murmurs and no rubs Bruits: no abdominal aortic bruits and no carotid bruits Neuro General: patient oriented x3 and gait normal, no focal neuro deficit Cranial nerves: Yes Equal, round and reactive pupils present Psych Affect: normal affect Assessment & Plan Assessment & Plan (1) Bacterial conjunctivitis of left eye: Code(s): H10.9 - Unspecified conjunctivitis Plan: Reports 3 days of scratch/gritty left eye with associated photosensitivity, clear drainage, and dry yellow crust upon waking up in the morning Left conjunctiva with mild erythema, no drainage or discharge noted Erythromycin ointment ordered. Use as prescribed Warm compresses encouraged Good hand hygiene encouraged to limit spread Follow-up with worsening or new symptoms Verbalized understanding and agreed with treatment plan. Medications: New erythromycin 0.5 inches ophthalmic (eye) TID 3.5 grams 0RF 7 days Coding Level of Care Code Est Pt Level 3 (78341) Diagnoses Bacterial conjunctivitis of left eye H10.9
== END 2023-02-06 11:19 | disposition home or self-care (01) ==
PROVIDERS: PCP Family Medicine; Visit Provider Nurse Practitioner Family
DX: H10.9 Unspecified conjunctivitis (principal)
CPT/HCPCS: 99213

== ENCOUNTER 2023-02-13 09:01 | Outpatient (REF) | payer OTHER, SELFPAY ==
[2023-02-13 11:21] LABS: MANUAL DIFF FLAG NO
[2023-02-13 11:38] LABS: Basophils Percent Auto 0.7 % (0-2); Eosinophils Absolute Auto 0.2 X10*3/uL (0.0-0.4); Eosinophils Percent Auto 2.7 % (0-4); Hematocrit 40.4 % (37.0-47.0); Hemoglobin 13.7 g/dl (12.0-16.0); Imm Gran Abs Auto 0.02 X10*3/uL (0.00-0.03); Imm Gran Pct Auto 0.4 % (0.0-0.4); Lymphocytes Absolute Auto 1.8 X10*3/uL (1.2-4.9); Lymphocytes Percent Auto 33.3 % (20-40); Mean Corpuscular HGB Conc 33.9 g/dl (31.0-35.0); Mean Corpuscular Hemoglobin 33.5 pg (27.0-33.0); Mean Corpuscular Volume 98.8 fL (80.0-98.0); Mean Platelet Volume 9.7 fL (9.4-12.3); Monocytes Absolute Auto 0.4 X10*3/uL (0.1-1.2); Monocytes Percent Auto 8.1 % (2-11); Neutrophils Percent Auto 54.8 % (45-73); Platelet Count 247 X10*3/uL (160-400); Red Blood Count 4.09 X10*6/uL (4.20-5.50); Red Cell Distribution Width 12.7 % (11.0-16.0); White Blood Count 5.5 X10*3/uL (4.8-10.8)
[2023-02-13 11:58] LABS: Alanine Aminotransferase 54 U/L (0-31); Alkaline Phosphatase 77 U/L (39-117); Anion Gap 11 (12-20); Aspartate Amino Transferase 40 U/L (5-31); Bilirubin Total 0.6 mg/dL (0.0-1.0); Blood Urea Nitrogen 13 mg/dL (9-16); C Reactive Protein < 0.10 mg/dL (< or = 0.50); Calcium 9.2 mg/dL (8.4-10.2); Carbon Dioxide 24 mmol/L (22-29); Chloride 108 mmol/L (96-108); Estimated Glomerular Filt Rate > 60; Glucose Random 107 mg/dL (60-115); Potassium 4.4 mmol/L (3.3-5.1); Sodium 139 mmol/L (135-145); Total Protein 6.8 g/dL (6.5-8.0)
[2023-02-13 12:42] LABS: Erythrocyte Sedimentation Rate 6 MM/HR (0-20)
== END 2023-02-13 09:02 | disposition home or self-care (01) ==
LOC: HO.WFDLDS 09:01
PROVIDERS: Visit Provider Student in an Organized Health Care Education/Training Program
DX: Z79.899 Other long term (current) drug therapy (principal)
CPT/HCPCS: 36415; 80053; 85025; 85652; 86140

== ENCOUNTER 2023-02-14 07:31 | Outpatient (AMB) | payer OTHER, SELFPAY ==
--- NOTE | 2023-02-14 07:38 | A.OFFVIS_ITS ---
Intake Vital Signs 02/14/23 07:45 Height 4 ft 10 in Weight 142 lb 3.17 oz BMI 29.7 BP 110/62 Blood Pressure Location Lt brachial Position Sitting Pulse 73 Pulse Source Pulse Oximeter Temp 97 F Temp Source Skin Pulse Oximetry (%) 96 Oxygen Delivery Method Room Air Intake Visit Reasons: RA Intake Note: Pt last seen 11/15/22, presents today for follow up and test results. 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 Required: No Accompanied by: Self / Same As Patient Allergies adhesive [ADHESIVE] Allergy (Intermediate, Verified 02/14/23 07:44) REDNESS levofloxacin [From LEVAQUIN] Allergy (Intermediate, Verified 02/14/23 07:44) ITCHINESS Sulfa (Sulfonamide Antibiotics) Allergy (Intermediate, Verified 02/14/23 07:44) Itchiness and Swelling sulfamethoxazole [From BACTRIM] Allergy (Intermediate, Verified 02/14/23 07:44) PHOTOSENSITIVITY/RASH trimethoprim [From BACTRIM] Allergy (Intermediate, Verified 02/14/23 07:44) PHOTOSENSITIVITY/RASH Medication List - Last Reconciled 02/14/23 by Orion Fleming MD acebutolol 200 mg PO DAILY albuterol sulfate 90 mcg/actuation inhalation aspirin (Adult Aspirin Regimen) 81 mg PO DAILY atorvastatin 20 mg PO BEDTIME bupropion HCl 150 mg PO DAILY carisoprodol 350 mg PO BID PRN cetirizine (Zyrtec) 10 mg PO DAILY PRN coenzyme Q10 (CoQ-10) 100 mg PO DAILY famotidine 40 mg PO DAILY gabapentin 600 mg PO BEDTIME magnesium 250 mg PO DAILY sarilumab (Kevzara) 200 mg (1.14 mL) subcut Q2W HPI HPI Comments History of Present Illness Details 62-year-old female with seropositive RA returns for follow-up. Kenalog injection done for right hip trochanteric bursitis last visit gave her relief for at least 2 months. She denies any trigger fingers today. States that she feels well overall but has generalized achiness and stiffness. Patient reduced her methotrexate to 4 tablets weekly without any worsening symptoms. Without improvement in hair loss. Continues on Kevzara. Patient denied any recent excessive alcohol use. States that she had a dental abscess 2 weeks ago and received erythromycin, she had a thrush which resolved with oral nystatin. Initial history: This is a 61-year-old female with seropositive RA presents our evaluation. Her previous optimization consultant left the practice. Patient states she feels relatively well overall. She is having triggering of her left thumb and left index fingers. 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 She is tolerating methotrexate, Kevzara and folic acid. [facility] Medical History Seropositive rheumatoid arthritis COPD (chronic obstructive pulmonary disease) Nicotine dependence, cigarettes, uncomplicated Osteoporosis Sessile serrated polyp of colon GERD (gastroesophageal reflux disease) Thyroid nodule Liver cyst Back pain History of pneumonia Pericardial effusion History of tachycardia Family history of malignant hyperthermia Surgical History History of dilation and curettage History of colonoscopy History of section Family History Mother HTN (hypertension) Sister Heart disease Household Members: Spouse and Children Alcohol intake: current Alcohol intake frequency: a few times a month Alcohol type: wine and hard liquor Patient Tobacco Use Status: Current everyday Tobacco user Tobacco use type: Cigarette Cigarettes Per Day: 5 Years Smoked: onset 13yo, 1ppd x 49yrs, now 1/4ppd - 40pyh Advance Directives Date on File: 01/07/20 Review of Systems Const Reports fatigue Card Denies dyspnea Resp Denies dyspnea Musc Reports arthralgias Endo Reports fatigue Physical Exam Vital Signs: Last Vital Signs Temp 97 F 02/14/23 07:45 Pulse 73 02/14/23 07:45 BP 110/62 02/14/23 07:45 Pulse Ox 96 02/14/23 07:45 Oxygen Delivery Method Room Air 02/14/23 07:45 BMI result Body Mass Index 29.7 Const General: cooperative, healthy appearing and comfortable Nutritional Appearance: overweight Orientation/consciousness: patient oriented x3 Limitations: no limitations HEENT Head: Yes normocephalic and Yes atraumatic Mouth: moist mucous membranes Resp Effort & Inspection: normal respiratory effort and able to speak in complete sentences Auscultation: clear to auscultation bilaterally Skin General skin exam: dry skin Neuro General: patient oriented x3 Extrem Other: No active synovitis. No tender joints. No triggering of her fingers today. Only minimal tenderness at the right trochanteric bursa area Normal nailfold capillaroscopy Assessment & Plan Assessment & Plan (1) Seropositive rheumatoid arthritis: Comment: +RF+CCP, ?pericarditis dx 2014 MTX & HCQ started 2014 Enbrel added 2016 & was working relatively but couldn't continue due to insurance issues, switched to Humira which was ineffective Kevzara started 2018 effective HCQ DC in 2019 (didn't feel a difference when she stopped it when taking Azithromycin for an infection) MTX DC 02/09 due to transaminitis Code(s): M05.9 - Rheumatoid arthritis with rheumatoid factor, unspecified Plan: 62-year-old with seropositive RA presents for follow-up. She is on methotrexate 10 mg weekly, Kevzara 200 mg every other week and folic acid 3 mg daily. She remains in remission. There was no change when methotrexate was lowered from 15 mg weekly to 10 mg weekly. Recent labs showed transaminitis. There is no recent alcohol use, patient however had bacterial conjunctivitis as well as a dental abscess last 2 weeks and received erythromycin. Transaminitis might be related to her recent infection and/or medication use. We will DC methotrexate. Continue Kevzara 200 mg every other week Labs before next visit in 3 months (2) Trigger finger of left hand: Code(s): M65.30 - Trigger finger, unspecified finger Qualifiers: Trigger finger location: thumb Qualified Code(s): M65.312 - Trigger thumb, left thumb Plan: left thumb trigger and left index trigger fingers where injected 06/09. left thumb trigger injected 11/15 There is no triggering of her fingers today. Injections can be repeated as needed (3) Osteoporosis: Comment: (Bone Dexa Femoral T-score: -2.6 on 06/14/22) Code(s): M81.0 - Age-related osteoporosis without current pathological fracture Plan: Discussed osteoporosis and its risk factors. Discussed alendronate. Patient however is going for extraction tomorrow. Will discuss alendronate next visit (4) Immunization counseling: Code(s): Z71.85 - Encounter for immunization safety counseling Plan: Patient received flu vaccine for this season. She is planning to get the new COVID booster and RSV vaccines. Plan I spent 45 minutes reviewing patient's chart, evaluating patient, ordering diagnostic workup, counseling patient and documenting in the chart Orders: Orders Complete Blood Count Auto Diff 3 Months M05.9 - Rheumatoid arthritis with rheumatoid factor, unspecified Comprehensive Met. Panel 3 Months M05.9 - Rheumatoid arthritis with rheumatoid factor, unspecified C Reactive Protein 3 Months M05.9 - Rheumatoid arthritis with rheumatoid factor, unspecified Erythrocyte Sedimentation Rate 3 Months M05.9 - Rheumatoid arthritis with rheumatoid factor, unspecified Medications: Discontinued 2 folic acid Discontinued Reason: Doctor's Order 3 mg (3 x 1 mg) PO DAILY 90 tabs 5RF methotrexate sodium Discontinued Reason: Doctor's Order 10 mg (4 x 2.5 mg) PO QWEEK 60 tabs 0RF Coding Level of Care Code Est Pt Level 5 (00045) Diagnoses Seropositive rheumatoid arthritis M05.9 Trigger finger of left thumb M65.312 Trigger finger location: thumb Osteoporosis M81.0 Immunization counseling Z71.85
[2023-02-14 07:45] VITALS: BP 110/62; PULSE 73; TEMP 36.1; O2SAT 96; BMI 29.7
== END 2023-02-14 08:06 | disposition home or self-care (01) ==
PROVIDERS: PCP Family Medicine; Visit Provider Student in an Organized Health Care Education/Training Program
DX: M05.79 Rheumatoid arthritis with rheumatoid factor of multiple sites without organ or systems involvement (principal); M65.312 Trigger thumb, left thumb; M81.0 Age-related osteoporosis without current pathological fracture; Z71.85 Encounter for immunization safety counseling
CPT/HCPCS: 99215

== ENCOUNTER → 2023-02-14 07:31 | Outpatient (BNVA) | payer OTHER, SELFPAY | PROVIDERS: PCP Family Medicine; Visit Provider Student in an Organized Health Care Education/Training Program ==

== ENCOUNTER 2023-03-21 08:57 | Outpatient (AMB) | payer OTHER, SELFPAY ==
[2023-03-21 09:00] VITALS: BP 128/76; PULSE 81; RESP 13; TEMP 36.6; O2SAT 98
--- NOTE | 2023-03-21 09:00 | AM.OFFWIN_ITS ---
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 Required: No Accompanied by: Self / Same As Patient Allergies adhesive [ADHESIVE] Allergy (Intermediate, Verified 03/21/23 09:07) REDNESS levofloxacin [From LEVAQUIN] Allergy (Intermediate, Verified 03/21/23 09:07) ITCHINESS Sulfa (Sulfonamide Antibiotics) Allergy (Intermediate, Verified 03/21/23 09:07) Itchiness and Swelling sulfamethoxazole [From BACTRIM] Allergy (Intermediate, Verified 03/21/23 09:07) PHOTOSENSITIVITY/RASH trimethoprim [From BACTRIM] Allergy (Intermediate, Verified 03/21/23 09:07) PHOTOSENSITIVITY/RASH Medication List - Last Reconciled 03/21/23 by Orion Chen CNP acebutolol 200 mg PO DAILY albuterol sulfate 90 mcg/actuation inhalation aspirin (Adult Aspirin Regimen) 81 mg PO DAILY atorvastatin 20 mg PO BEDTIME bupropion HCl 150 mg PO DAILY carisoprodol 350 mg PO BID PRN cetirizine (Zyrtec) 10 mg PO DAILY PRN coenzyme Q10 (CoQ-10) 100 mg PO DAILY famotidine 40 mg PO DAILY gabapentin 600 mg PO BEDTIME magnesium 250 mg PO DAILY sarilumab (Kevzara) 200 mg (1.14 mL) subcut Q2W Do you need a note to return to daycare/school/sports/work: No HPI HPI Comments History of Present Illness Details 62 y/o female presents with running nose , sneezing, and non-productive cough yesterday. No running nose, sneezing, or cough so far today. She notes that she feels as though her lungs do not completely expand with deep inhalation. She reports occasional wheezing and associated fatigue. She reports positive COVID-19 contact on [place]. She is a smoker. No headache, sore throat, fever, chills, body aches, or weakness. [facility] Medical History Seropositive rheumatoid arthritis COPD (chronic obstructive pulmonary disease) Nicotine dependence, cigarettes, uncomplicated Osteoporosis Sessile serrated polyp of colon GERD (gastroesophageal reflux disease) Thyroid nodule Liver cyst Back pain History of pneumonia Pericardial effusion History of tachycardia Family history of malignant hyperthermia Surgical History History of dilation and curettage History of colonoscopy History of section Family History Mother HTN (hypertension) Sister Heart disease Social History Household Members: Spouse and Children Alcohol intake: current Alcohol intake frequency: a few times a month Alcohol type: wine and hard liquor Patient Tobacco Use Status: Current everyday Tobacco user Tobacco use type: Cigarette Cigarettes Per Day: 5 Years Smoked: onset 13yo, 1ppd x 49yrs, now 1/4ppd - 40pyh Advance Directives Date on File: 01/07/20 Review of Systems Const Details: Const Denies chills, Reports fatigue, Denies fever(s), Denies headache(s) and Denies weakness ENT Denies change in vision, Denies dizziness, Denies headache(s), Denies hearing loss, Denies nasal congestion, Denies sinus pain, Denies sinus pressure and Denies sore throat Resp Denies cough, Denies dyspnea, Denies wheezing and Denies other (shortness of breath) Cardio Denies chest pain, Denies lightheadedness, Denies dyspnea and Denies other (palpitations) Neuro Denies dizziness, Denies headache(s), Denies numbness, Denies tingling and Denies weakness Psych Denies anxiety, Denies depression, Denies memory?loss Endo Reports fatigue Aller/Immun Denies wheezing Physical Exam Vital Signs: Last Vital Signs Temp 97.9 F 03/21/23 09:00 Pulse 81 03/21/23 09:00 Resp 13 03/21/23 09:00 BP 128/76 03/21/23 09:00 Pulse Ox 98 03/21/23 09:00 Oxygen Delivery Method Room Air 03/21/23 09:00 Const Other: Const General: well developed; No acute distress Nutritional Appearance: well nourished Orientation/consciousness: patient oriented x3 HEENT Head is normocephalic Bilateral ear canal and TM are normal Nasal turbinates and oropharynx are pink and moist Sinuses are nontender with palpation No auricular or cervical lymphadenopathy Eyes General: appearance normal, both eyes and all related structures Pupils: Equal, round and reactive pupils present EOM: EOMs intact bilaterally Resp Effort & Inspection: normal respiratory effort Auscultation: clear to auscultation bilaterally Cardio Rate: regular rate Rhythm: regular rhythm Heart sounds: S1 normal heart sound present, S2 normal heart sound present, no gallops, no murmurs and no rubs Bruits: no abdominal aortic bruits and no carotid bruits Neuro General: patient oriented x3 and gait normal, no focal neuro deficit Cranial nerves: Yes Equal, round and reactive pupils present Psych Affect: normal affect Assessment & Plan Assessment & Plan (1) Viral upper respiratory illness: Code(s): J06.9 - Acute upper respiratory infection, unspecified Plan: Likely viral illness though possibly allergies. No exam evidence of bacterial infection Viral illness There is no antibiotic medication for viruses.? They must run their course.? Most average 5-7 days but 7-10 days is not uncommon and up to 14 days is still possible.? A cough is often the last symptom to resolve and this can last for weeks in some cases. Rest Hydrate well -? Drink plenty of fluids.? Especially water. Tylenol or ibuprofen for muscle aches, headache, fever/discomfort Cannot rule out COVID-19/RSV/Flu infection Nasal swab acquired and will be sent to the lab Return for new or worsening symptoms Verbalized understanding and agreed with treatment plan. Orders: Orders SARS-CoV2/FLU/RSV Today R09.89 - Other specified symptoms and signs involving the circulatory and respiratory systems Coding Level of Care Code Est Pt Level 2 (68750) Diagnoses Viral upper respiratory illness J06.9
== END 2023-03-21 09:33 | disposition home or self-care (01) ==
PROVIDERS: PCP Family Medicine
DX: J06.9 Acute upper respiratory infection, unspecified (principal)
CPT/HCPCS: 99212

== ENCOUNTER 2023-03-21 09:19 | Outpatient (REF) | payer OTHER, SELFPAY ==
[2023-03-21 12:25] LABS: Influenza A PCR NEGATIVE (Negative); Influenza B PCR NEGATIVE (Negative); Resp Syncy Virus RNA Qual PCR NEGATIVE (Negative); SARS COV2 PCR INHOUSE POSITIVE (Negative)
== END 2023-03-21 09:20 | disposition home or self-care (01) ==
LOC: HO.LAB 09:19
PROVIDERS: Visit Provider Nurse Practitioner Family
DX: Z11.52 Encounter for screening for COVID-19 (principal); Z20.822 Contact with and (suspected) exposure to COVID-19; R09.89 Other specified symptoms and signs involving the circulatory and respiratory systems
CPT/HCPCS: 0241U

== ENCOUNTER 2023-04-06 12:56 | Outpatient (REF) | payer OTHER, SELFPAY ==
--- NOTE | ~2023-04-06 | MM_ITS ---
EXAMINATION: MM DIAGNOSTIC DIGITAL BREAST TOMOSYNTHESIS, BILATERAL US BREAST LIMITED, LEFT CLINICAL INFORMATION: Six-month follow-up left breast small nodule upper outer left breast mid depth, which on ultrasound appears to represent a small cluster of benign cysts. COMPARISON: Mammography: 02/17/2022, 02/08/2022 (BI-RADS 0) 02/05/2021, ultrasound left breast 02/17/2022. TECHNIQUE: Digital breast tomosynthesis is performed in both the craniocaudal and mediolateral oblique views along with computer-aided detection (CAD). Synthesized 2D images are generated from the tomosynthesis. FINDINGS: There are scattered areas of fibroglandular density (ACR BI-RADS breast composition Category b). Previously seen small nodular asymmetry in the central upper outer left breast is no longer definitively evident. There are no significant masses, abnormal calcifications, or other abnormalities. There are no skin or axillary abnormalities. ULTRASOUND: CLINICAL INFORMATION: As above. COMPARISON: 02/17/2022. TECHNIQUE: Targeted sonographic evaluation was performed using a high frequency linear transducer. Attention was given to the 2:00 axis left breast in the region of clustered microcysts previously seen. Selected archived documentation. FINDINGS: LEFT BREAST: There is a mixture of fatty and fibroglandular tissue. No suspicious mass is seen. There is no pathologic acoustic shadowing. There is no persistent cystic abnormality. The previously seen abnormality appears to have resolved. It was benign regardless. No new suspicious findings. MM/MM tomosynthesis diagnostic BI IMPRESSION: There are no findings suspicious for malignancy in either breast. Recommend returning to routine annual screening. OVERALL ASSESSMENT: Mammography: BI-RADS 1 - Negative Ultrasound: BI-RADS 1 - Negative RECOMMENDATION: 1 year F/U This patient's information was entered into a reminder system with a target due date for their next mammogram.
== END 2023-04-06 12:57 | disposition home or self-care (01) ==
LOC: HO.MAMMO 12:56
PROVIDERS: PCP Family Medicine; Visit Provider Family Medicine
DX: N63.21 Unspecified lump in the left breast, upper outer quadrant (principal)
CPT/HCPCS: 76642; 77062; 77066

== ENCOUNTER → 2023-04-06 13:00 | Outpatient (BNV) | payer OTHER, SELFPAY | PROVIDERS: PCP Family Medicine; Visit Provider Radiology Diagnostic Radiology | DX: N60.01 Solitary cyst of right breast (principal) | CPT/HCPCS: 76642; 77062; 77066 ==

== ENCOUNTER 2023-05-09 08:04 | Outpatient (REF) | payer OTHER, SELFPAY ==
[2023-05-09 11:25] LABS: MANUAL DIFF FLAG NO
[2023-05-09 11:39] LABS: Basophils Percent Auto 0.6 % (0-2); Eosinophils Absolute Auto 0.2 X10*3/uL (0.0-0.4); Eosinophils Percent Auto 4.5 % (0-4); Hematocrit 44.9 % (37.0-47.0); Hemoglobin 15.3 g/dl (12.0-16.0); Imm Gran Abs Auto 0.01 X10*3/uL (0.00-0.03); Imm Gran Pct Auto 0.2 % (0.0-0.4); Lymphocytes Percent Auto 37.9 % (20-40); Mean Corpuscular HGB Conc 34.1 g/dl (31.0-35.0); Mean Corpuscular Hemoglobin 32.6 pg (27.0-33.0); Mean Corpuscular Volume 95.7 fL (80.0-98.0); Mean Platelet Volume 9.5 fL (9.4-12.3); Monocytes Absolute Auto 0.4 X10*3/uL (0.1-1.2); Monocytes Percent Auto 7.2 % (2-11); Neutrophils Absolute Auto 2.6 x10*3/uL (2.0-8.3); Neutrophils Percent Auto 49.6 % (45-73); Platelet Count 228 X10*3/uL (160-400); Red Blood Count 4.69 X10*6/uL (4.20-5.50); Red Cell Distribution Width 11.7 % (11.0-16.0); White Blood Count 5.3 X10*3/uL (4.8-10.8)
[2023-05-09 12:10] LABS: Alanine Aminotransferase 39 U/L (0-31); Alkaline Phosphatase 92 U/L (39-117); Anion Gap 15 (12-20); Aspartate Amino Transferase 29 U/L (5-31); Bilirubin Total 0.3 mg/dL (0.0-1.0); Blood Urea Nitrogen 22 mg/dL (9-16); Carbon Dioxide 24 mmol/L (22-29); Chloride 108 mmol/L (96-108); Estimated Glomerular Filt Rate > 60; Glucose Random 118 mg/dL (60-115); Potassium 4.8 mmol/L (3.3-5.1); Sodium 142 mmol/L (135-145)
[2023-05-09 13:23] LABS: Erythrocyte Sedimentation Rate 11 MM/HR (0-20)
== END 2023-05-09 08:05 | disposition home or self-care (01) ==
LOC: HO.WFDLDS 08:04
PROVIDERS: Visit Provider Student in an Organized Health Care Education/Training Program
DX: M05.9 Rheumatoid arthritis with rheumatoid factor, unspecified (principal)
CPT/HCPCS: 36415; 80053; 85025; 85652; 86140

== ENCOUNTER 2023-05-16 07:59 | Outpatient (AMB) | payer OTHER, SELFPAY ==
[2023-05-16 08:04] VITALS: BP 132/64; PULSE 85; TEMP 35.9; O2SAT 99; BMI 29.8
--- NOTE | 2023-05-16 08:04 | A.OFFVIS_ITS ---
Intake Vital Signs 05/16/23 08:04 Height 4 ft 10 in Weight 142 lb 6.698 oz BMI 29.8 BP 132/64 Blood Pressure Location Rt brachial Position Sitting Pulse 85 Pulse Source Pulse Oximeter Temp 96.7 F L Temp Source Skin Pulse Oximetry (%) 99 Oxygen Delivery Method Room Air Intake Visit Reasons: RA Intake Note: Patient last seen 02/14/23 presents today for follow up and test results. C/o pain in right hip and knee , left trigger finger; requesting injections. Protocol Manager Required: No Accompanied by: Self / Same As Patient Allergies adhesive [ADHESIVE] Allergy (Intermediate, Verified 05/16/23 08:13) REDNESS levofloxacin [From LEVAQUIN] Allergy (Intermediate, Verified 05/16/23 08:13) ITCHINESS Sulfa (Sulfonamide Antibiotics) Allergy (Intermediate, Verified 05/16/23 08:13) Itchiness and Swelling sulfamethoxazole [From BACTRIM] Allergy (Intermediate, Verified 05/16/23 08:13) PHOTOSENSITIVITY/RASH trimethoprim [From BACTRIM] Allergy (Intermediate, Verified 05/16/23 08:13) PHOTOSENSITIVITY/RASH Medication List - Last Reconciled 05/16/23 by Orion Fleming MD acebutolol 200 mg PO DAILY albuterol sulfate 90 mcg/actuation inhalation aspirin (Adult Aspirin Regimen) 81 mg PO DAILY atorvastatin 20 mg PO BEDTIME bupropion HCl 150 mg PO DAILY carisoprodol 350 mg PO BID PRN cetirizine (Zyrtec) 10 mg PO DAILY PRN coenzyme Q10 (CoQ-10) 100 mg PO DAILY famotidine 40 mg PO DAILY gabapentin 600 mg PO BEDTIME Kevzara (sarilumab) 200 mg (1.14 mL) subcut Q2W NS magnesium 250 mg PO DAILY HPI HPI Comments History of Present Illness Details 62-year-old female with seropositive RA returns for follow-up. She is on Kevzara every other week. Methotrexate was discontinued last visit. She did not feel a difference. She is complaining of some right hip pain especially with going up and down the stairs, mild medial right knee pain and clicking sensation. She has been having triggering of her left index finger. She bought some rings from [employer] to keep the index straight. She had dental extraction and completed antibiotic course. She is doing well otherwise Initial history: This is a 61-year-old female with seropositive RA presents our evaluation. 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 Patient states she feels relatively well overall. She is having triggering of her left thumb and left index fingers. 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 She is tolerating methotrexate, Kevzara and folic acid. [facility] Medical History Seropositive rheumatoid arthritis COPD (chronic obstructive pulmonary disease) Nicotine dependence, cigarettes, uncomplicated Osteoporosis Sessile serrated polyp of colon GERD (gastroesophageal reflux disease) Thyroid nodule Liver cyst Back pain History of pneumonia Pericardial effusion History of tachycardia Family history of malignant hyperthermia Surgical History History of dilation and curettage History of colonoscopy History of section Family History Mother HTN (hypertension) Sister Heart disease Social History Household Members: Spouse and Children Alcohol intake: current Alcohol intake frequency: a few times a month Alcohol type: wine and hard liquor Patient Tobacco Use Status: Current everyday Tobacco user Tobacco use type: Cigarette Cigarettes Per Day: 5 Years Smoked: onset 13yo, 1ppd x 49yrs, now 1/4ppd - 40pyh Advance Directives Date on File: 01/07/20 Review of Systems [facility] Reports arthralgias and Reports stiffness Physical Exam Vital Signs: Last Vital Signs Temp 96.7 F L 05/16/23 08:04 Pulse 85 05/16/23 08:04 BP 132/64 05/16/23 08:04 Pulse Ox 99 05/16/23 08:04 Oxygen Delivery Method Room Air 05/16/23 08:04 BMI result Body Mass Index 29.8 Const General: cooperative, healthy appearing and comfortable Nutritional Appearance: overweight Orientation/consciousness: patient oriented x3 Limitations: no limitations HEENT Head: Yes normocephalic and Yes atraumatic Mouth: moist mucous membranes Resp Effort & Inspection: normal respiratory effort and able to speak in complete sentences Auscultation: clear to auscultation bilaterally Skin General skin exam: dry skin Neuro General: patient oriented x3 Extrem Other: No active synovitis. No tender joints. No triggering of her fingers today. Only minimal tenderness at the right trochanteric bursa area Normal nailfold capillaroscopy Office Procedures Tendon Injection Tendon Injection Details: With patient's consent, The palm of the left hand was prepped with ChloraPrep and alcohol. Under topical ethyl chloride spray the [2nd] flexor tendon sheath was injected with 20 mg of triamcinolone and 0.2 cc of 1% lidocaine. The patient tolerated the procedure without any acute complications. [id number] Tendon Sheath Injection All charges added?: Procedure code (CPT) selection complete Assessment & Plan Assessment & Plan (1) Seropositive rheumatoid arthritis: Comment: +RF+CCP, ?pericarditis dx 2014 MTX & HCQ started 2014 Enbrel added 2016 & was working relatively but couldn't continue due to insurance issues, switched to Humira which was ineffective Kevzara started 2018 effective HCQ DC in 2019 (didn't feel a difference when she stopped it when taking Azithromycin for an infection) MTX DC 02/09 due to transaminitis Code(s): M05.9 - Rheumatoid arthritis with rheumatoid factor, unspecified Plan: 62-year-old with seropositive RA presents for follow-up. On Kevzara 200 mg every other week. She remains in remission. No change after methotrexate was discontinued last visit. Transaminitis improving but patient has had fluctuating transaminitis over the years. Will refer to Gastroenterology Continue Kevzara 200 mg every other week Labs before next visit in 3 months (2) Trigger finger of left hand: Code(s): M65.30 - Trigger finger, unspecified finger Qualifiers: Trigger finger location: thumb Qualified Code(s): M65.312 - Trigger thumb, left thumb Plan: left thumb trigger and left index trigger fingers where injected 06/09. left thumb trigger injected 11/15 Today patient is having triggering of her left index finger. Requesting repeat injections. With patient's consent, left index trigger finger was injected with Kenalog (3) Osteoporosis: Comment: (Bone Dexa Femoral T-score: -2.6 on 06/14/22) alendronate 04/2023 Code(s): M81.0 - Age-related osteoporosis without current pathological fracture Qualifiers: Osteoporosis type: age-related Presence of current pathological fracture: without current pathological fracture Qualified Code(s): M81.0 - Age- related osteoporosis without current pathological fracture Plan: Discussed osteoporosis and its risk factors. Discussed alendronate. Patient agreed to proceed. Start alendronate 70 mg weekly Check vitamin-D level before next visit (4) Trochanteric bursitis of right hip: Code(s): M70.61 - Trochanteric bursitis, right hip Plan: I provided patient with a printout of home exercises Plan I spent 45 minutes reviewing patient's chart, evaluating patient, ordering diagnostic workup, counseling patient and documenting in the chart Orders: Orders Complete Blood Count Auto Diff 3 Months M05.9 - Rheumatoid arthritis with rheumatoid factor, unspecified Comprehensive Met. Panel 3 Months M05.9 - Rheumatoid arthritis with rheumatoid factor, unspecified Erythrocyte Sedimentation Rate 3 Months M05.9 - Rheumatoid arthritis with rheumatoid factor, unspecified AMB Injection-Tendon Today M65.30 - Trigger finger, unspecified finger C Reactive Protein 3 Months M05.9 - Rheumatoid arthritis with rheumatoid factor, unspecified Vitamin D 25-OH (D2 and D3) 3 Months Z13.21 - Encounter for screening for nutritional disorder Medications: New alendronate Take 1 tab once weekly, 1st thing in the morning, on an empty stomach, with a large glass of water (at least 6 oz) and stay upright for 30 minutes 70 mg PO QWEEK 12 tabs 1RF Coding Level of Care Code Est Pt Level 5 (72393) Diagnoses Seropositive rheumatoid arthritis M05.9 Trigger finger of left thumb M65.312 Trigger finger location: thumb Age-related osteoporosis without current pathological fracture M81.0 Osteoporosis type: age-related Presence of current pathological fracture: without current pathological fracture Trochanteric bursitis of right hip M70.61 CPT Codes Tendon Injection - Tendon Injection 1: [id number] Tendon Sheath Injection ([id number])
== END 2023-05-16 08:38 | disposition home or self-care (01) ==
PROVIDERS: PCP Family Medicine; Visit Provider Student in an Organized Health Care Education/Training Program
DX: M05.79 Rheumatoid arthritis with rheumatoid factor of multiple sites without organ or systems involvement (principal); M65.312 Trigger thumb, left thumb; M81.0 Age-related osteoporosis without current pathological fracture; M70.61 Trochanteric bursitis, right hip
CPT/HCPCS: 20550; 99214

== ENCOUNTER → 2023-05-16 07:59 | Outpatient (BNVA) | payer OTHER, SELFPAY | PROVIDERS: PCP Family Medicine; Visit Provider Student in an Organized Health Care Education/Training Program | DX: M05.9 Rheumatoid arthritis with rheumatoid factor, unspecified (principal); M65.322 Trigger finger, left index finger; M65.312 Trigger thumb, left thumb; M81.0 Age-related osteoporosis without current pathological fracture; M70.61 Trochanteric bursitis, right hip; Z79.899 Other long term (current) drug therapy | CPT/HCPCS: 20550; J3301 ==

== ENCOUNTER 2023-05-25 07:50 | Outpatient (REF) | payer OTHER, SELFPAY ==
[2023-06-05 14:19] LABS: FIB-ALT 26 U/L (6-29); FIB-Alpha-2-Macroglobulin 303 mg/dL (106-279); FIB-Apolipoprotein A1 200 mg/dL (101-198); FIB-GGT 25 U/L (3-65); FIB-Haptoglobin 42 mg/dL (43-212); FIB-Total Bilirubin 0.3 mg/dL (0.2-1.2); Liver Fibrosis Stage F1; Nec Inflam Act Grade A0; Nec Inflam Act Score 0.12
== END 2023-05-25 07:51 | disposition home or self-care (01) ==
LOC: HO.LAB 07:50
PROVIDERS: PCP Family Medicine; Visit Provider Family Medicine
DX: K75.81 Nonalcoholic steatohepatitis (NASH) (principal); Z82.3 Family history of stroke
CPT/HCPCS: 36415; 81596; 83090

== ENCOUNTER 2023-07-07 11:38 | Outpatient (AMB) | payer OTHER, SELFPAY ==
--- NOTE | 2023-07-07 11:43 | MHC.OFFVIS ---
Vital Signs 07/07/23 11:46 Height 4 ft 10 in Weight 137 lb BMI 28.6 BP 149/62 H Blood Pressure Location Lt brachial Position Sitting Pulse 84 Intake Visit Reasons: elevated Liver Enzymes Intake Note: Patient new consult for Elevated liver Enzymes. Patient cc: abdominal pain coughing on and off. Denies any other GI issues. Allergies adhesive [ADHESIVE] Allergy (Intermediate, Verified 07/07/23 11:43) REDNESS levofloxacin [From LEVAQUIN] Allergy (Intermediate, Verified 07/07/23 11:43) ITCHINESS Sulfa (Sulfonamide Antibiotics) Allergy (Intermediate, Verified 07/07/23 11:43) Itchiness and Swelling sulfamethoxazole [From BACTRIM] Allergy (Intermediate, Verified 07/07/23 11:43) PHOTOSENSITIVITY/RASH trimethoprim [From BACTRIM] Allergy (Intermediate, Verified 07/07/23 11:43) PHOTOSENSITIVITY/RASH HPI HPI elevated Liver Enzymes: Details: LAST VISIT Sessile serrated polyp of colon 10 mm sessile serrated polyp found, recommendation was made to return for colorectal screening in 3 years, sooner if clinically necessary. Screen for colon cancer Patient denies any ill effects from the prep, anesthesia or procedure itself. One sessile serrated lesion found in transverse colon. Recommendation to return in 3 years, sooner if clinically necessary. Patient is agreeable to this plan and verbalizes understanding of instructions. She was given the opportunity to ask questions and all questions answered. ? TODAY'S VISIT Patient is here today for consult due to elevated liver enzymes. 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 Methotrexate was stopped, repeated liver enzymes showed ALT still being elevated. PCP did fibrosis panel which we discussed. Patient denies any abdominal pain or discomfort. Denies any postprandial right upper quadrant pain. Normal bilirubin. No family history of hemochromatosis [facility] Medical History Seropositive rheumatoid arthritis COPD (chronic obstructive pulmonary disease) Nicotine dependence, cigarettes, uncomplicated Osteoporosis Sessile serrated polyp of colon GERD (gastroesophageal reflux disease) Thyroid nodule Liver cyst Back pain History of pneumonia Pericardial effusion History of tachycardia Family history of malignant hyperthermia Surgical History History of dilation and curettage History of colonoscopy History of section Family History Mother HTN (hypertension) Sister Heart disease Social History Household Members: Spouse and Children Alcohol intake: current Alcohol intake frequency: a few times a month Alcohol type: wine and hard liquor Patient Tobacco Use Status: Current everyday Tobacco user Tobacco use type: Cigarette Cigarettes Per Day: 5 Years Smoked: onset 13yo, 1ppd x 49yrs, now 1/4ppd - 40pyh Advance Directives Date on File: 01/07/20 Review of Systems Const Denies weight gain and Denies weight loss ENT Reports no additional complaints, Denies dysphagia and Denies odynophagia Card Reports no additional complaints Resp Reports no additional complaints GI Denies abdominal pain, Denies belching, Denies melena, Denies bloating, Denies change in bowel habits, Denies dysphagia, Denies excessive flatus, Denies dyspepsia, Denies heartburn, Denies diarrhea, Denies loose stools, Denies nausea, Denies odynophagia and Denies vomiting Musc Reports no additional complaints Neuro Reports no additional complaints Psych Reports no additional complaints Endo Reports no additional complaints Physical Exam Vital Signs: Last Vital Signs Pulse 84 07/07/23 11:46 BP 149/62 H 07/07/23 11:46 BMI result Body Mass Index 28.6 Const General: healthy appearing, no acute distress and well developed Nutritional Appearance: well nourished Orientation/consciousness: patient oriented x3 Resp Effort & Inspection: normal respiratory effort, able to speak in complete sentences, no tracheal deviation and symmetric chest movement Auscultation: clear to auscultation bilaterally Cardio Rate: regular rate GI Inspection: Yes normal to inspection and No distended Palpation (GI): Soft to palpation, not firm, nontender and No hepatosplenomegaly present Auscultation: normal bowel sounds General: Yes no CVA tenderness Back/Spine/Pelvis Back: no CVA tenderness Skin General skin exam: elasticity normal, turgor normal and dry skin Neuro General: patient oriented x3 Psych Appearance: grossly normal Mental Status: mental status grossly normal Results Reviewed Results Reviewed: Laboratory Tests 02/13/23 05/09/23 05/25/23 09:03 08:06 08:07 AST 40 H 29 ALT 54 H 39 H Liver GGT 25 Liver Total Bilirubin 0.3 Liver Apolipoprotein A1 200 H Liver Fibrosis ALT 26 Liver [id number] 303 H Liver Haptoglobin 42 L Assessment & Plan Assessment & Plan (1) Transaminitis: Code(s): R74.01 - Elevation of levels of liver transaminase levels Category: Medical (2) Liver disease: Code(s): K76.9 - Liver disease, unspecified Plan Most likely liver enzymes elevated due to methotrexate therapy for RA. However we will rule out autoimmune disorders, hemochromatosis. Will order ultrasound with elastography. Possibility that this could also be Cox that was aggravated by methotrexate. Discussed with patient losing weight, high-protein, low-fat low carb diet. Patient will return in 6 months, sooner on as needed basis. Patient is agreeable to this plan and verbalizes understanding of instructions. She was given the opportunity to ask questions and all questions answered. Thank you for allowing me to participate in her care Orders: Orders Alpha Fetoprotein Today R79.89 - Other specified abnormal findings of blood chemistry Prothrombin Time INR Today R74.8 - Abnormal levels of other serum enzymes Smooth Muscle Antibody Today R79.89 - Other specified abnormal findings of blood chemistry Hepatitis A,B,C Profile Today R79.89 - Other specified abnormal findings of blood chemistry Mitochondrial Antibody Today R79.89 - Other specified abnormal findings of blood chemistry US abdomen rodriguez w elastography Today R74.01 - Elevation of levels of liver transaminase levels Ceruloplasmin Today R79.89 - Other specified abnormal findings of blood chemistry Ferritin Today R74.8 - Abnormal levels of other serum enzymes
[2023-07-07 11:46] VITALS: BP 149/62; PULSE 84; BMI 28.6
== END 2023-07-07 12:09 | disposition home or self-care (01) ==
PROVIDERS: PCP Family Medicine; Visit Provider Nurse Practitioner Family
DX: R74.01 Elevation of levels of liver transaminase levels (principal); K76.9 Liver disease, unspecified
CPT/HCPCS: 99214

== ENCOUNTER → 2023-07-07 11:38 | Outpatient (BNVA) | payer OTHER, SELFPAY | PROVIDERS: PCP Family Medicine; Visit Provider Nurse Practitioner Family ==

== ENCOUNTER 2023-07-11 08:51 | Outpatient (REF) | payer OTHER, SELFPAY ==
[2023-07-11 11:36] LABS: MANUAL DIFF FLAG NO
[2023-07-11 11:41] LABS: Basophils Absolute Auto 0.1 X10*3/uL (0.0-0.2); Basophils Percent Auto 0.6 % (0-2); Eosinophils Absolute Auto 0.2 X10*3/uL (0.0-0.4); Eosinophils Percent Auto 2.8 % (0-4); Hematocrit 41.7 % (37.0-47.0); Hemoglobin 14.1 g/dl (12.0-16.0); Imm Gran Abs Auto 0.03 X10*3/uL (0.00-0.03); Imm Gran Pct Auto 0.4 % (0.0-0.4); Lymphocytes Percent Auto 25.9 % (20-40); Mean Corpuscular HGB Conc 33.8 g/dl (31.0-35.0); Mean Corpuscular Hemoglobin 31.8 pg (27.0-33.0); Mean Corpuscular Volume 93.9 fL (80.0-98.0); Mean Platelet Volume 9.2 fL (9.4-12.3); Monocytes Absolute Auto 0.5 X10*3/uL (0.1-1.2); Monocytes Percent Auto 5.8 % (2-11); Neutrophils Percent Auto 64.5 % (45-73); Platelet Count 382 X10*3/uL (160-400); Red Blood Count 4.44 X10*6/uL (4.20-5.50); Red Cell Distribution Width 12.9 % (11.0-16.0); White Blood Count 7.8 X10*3/uL (4.8-10.8)
[2023-07-11 11:53] LABS: Prothrombin Time 11.7 SEC (11.1-13.3)
[2023-07-11 12:29] LABS: Erythrocyte Sedimentation Rate 63 MM/HR (0-20)
[2023-07-11 12:33] LABS: Alanine Aminotransferase 20 U/L (0-31); Albumin Level 3.7 g/dL (3.5-5.0); Alkaline Phosphatase 96 U/L (39-117); Anion Gap 9 (12-20); Aspartate Amino Transferase 17 U/L (5-31); Bilirubin Total 0.4 mg/dL (0.0-1.0); Blood Urea Nitrogen 17 mg/dL (9-16); C Reactive Protein 1.53 mg/dL (< or = 0.50); Calcium 9.4 mg/dL (8.4-10.2); Carbon Dioxide 28 mmol/L (22-29); Chloride 109 mmol/L (96-108); Estimated Glomerular Filt Rate > 60; Glucose Random 124 mg/dL (60-115); Potassium 4.2 mmol/L (3.3-5.1); Sodium 142 mmol/L (135-145); Total Protein 7.4 g/dL (6.5-8.0)
[2023-07-11 12:41] LABS: Ferritin 327 ng/mL (10-250)
[2023-07-12 04:37] LABS: HBS Num1 53.59 mIU/mL (0-7.99); HBc Num1 0.13 S/CO (0.00-0.79); Hepatitis A Antibody IgM 0.17 Index (0-0.79); Hepatitis B Core Antibody Nonreactive (Nonreactive); Hepatitis B Surface Antigen Negative (Negative); ~Hepatitis A Antibody IgM Nonreactive (Nonreactive); ~Hepatitis B Surface Antibody REACTIVE (Nonreactive); ~Hepatitis C Antibody Nonreactive (Nonreactive)
[2023-07-12 18:19] LABS: Ceruloplasmin 39 mg/dL (18-53)
[2023-07-13 09:54] LABS: Mitochondrial Antibodies NEGATIVE (NEGATIVE)
[2023-07-13 13:33] LABS: Alpha Fetoprotein 2.9 ng/mL
[2023-07-14 17:28] LABS: Smooth Muscle Antibody <20 U (<20)
[2023-07-15 14:38] LABS: Vitamin D 25-OH, D2 <4 ng/mL; Vitamin D 25-OH, D3 25 ng/mL; Vitamin D 25-OH, Total 25 ng/mL (30-100)
== END 2023-07-11 08:52 | disposition home or self-care (01) ==
LOC: HO.WFDLDS 08:51
PROVIDERS: Referring Provider Student in an Organized Health Care Education/Training Program; Visit Provider Nurse Practitioner Family
DX: Z13.21 Encounter for screening for nutritional disorder (principal); R79.89 Other specified abnormal findings of blood chemistry; R74.8 Abnormal levels of other serum enzymes; M05.9 Rheumatoid arthritis with rheumatoid factor, unspecified
CPT/HCPCS: 36415; 80053; 82105; 82306; 82390; 82728; 85025; 85610; 85652; 86015; 86140; 86381; 86704; 86706; 86709; 86803; 87340

== ENCOUNTER 2023-07-25 07:56 | Outpatient (REF) | payer OTHER, SELFPAY ==
--- NOTE | ~2023-07-25 | US_ITS ---
EXAMINATION: US ABDOMEN LIMITED WITH LIVER ELASTOGRAPHY CLINICAL INFORMATION: Elevated liver transaminase levels. COMPARISON: None available. TECHNIQUE: Real-time imaging of the abdominal viscera. Noninvasive ultrasound liver fibrosis assessment is performed using William ElastPQ point quantification shear wave elastography (2D-SWE) with a C5-2 MHz transducer. Multiple elastography samples are obtained. FINDINGS: PANCREAS: Normal. The visualized pancreatic head and body are normal in appearance. The remainder of the pancreas is obscured from visualization by the overlying bowel gas. LIVER: The liver demonstrates normal size, contour and generally increased echogenicity. No focal lesion or intrahepatic biliary duct dilatation. The right lobe measures 12.0 cm in length. The left lobe measures 9.7 cm in length. Portal flow is towards the liver (hepatopetal). Shear wave liver elastography median stiffness is 1.47 m/s (reference: normal median stiffness is 1.3 m/s or less). IQR/median stiffness to assess sampling precision is 0.17 (reference: good quality data set is IQR/median stiffness of 0.15 or less). GALLBLADDER: A 3 mm nonmobile polyp is incidentally noted. The gallbladder is physiologically distended without evidence of stones, sludge, polyps, wall thickening or pericholecystic fluid. COMMON BILE DUCT: Normal in caliber measuring 0.3 cm in diameter. RIGHT KIDNEY: Normal. No hydronephrosis. No renal calculi or focal parenchymal lesions. The kidney measures 8.8 cm in maximum dimension. FREE FLUID: None. US/US abdomen rodriguez w elastography IMPRESSION: 1. There is generalized increase in hepatic echotexture, consistent with fatty infiltration or hepatocellular disease. Please correlate clinically. No focal hepatic mass or intrahepatic biliary dilatation is seen. 2. Liver elastography: Although measurements appear to rule out compensated advanced chronic liver disease, there is statistical variability of the sampling which decreases accuracy. 3. A 3 mm nonmobile gallbladder polyp is incidentally noted. REFERENCE: Society of Radiologists in Ultrasound Liver Stiffness Thresholds (2020): LIVER STIFFNESS THRESHOLDS: *Liver Stiffness equal or less than 1.3 m/s: High probability of being normal. *Liver Stiffness less than 1.7 m/s: In the absence of other known clinical signs, rules out compensated advanced chronic liver disease. *Liver Stiffness 1.7-2.1 m/s: Suggestive of compensated advanced chronic liver disease but need further test for confirmation. *Liver Stiffness over 2.1 m/s: Rules in compensated advanced chronic liver disease. *Liver Stiffness over 2.4 m/s: Suggestive of clinically significant portal hypertension. QUALITY OF DATA SET: *IQR/Median value equal or less than 0.15 implies a quality data set. *IQR/Median value over 0.15 implies a poor quality data set. SIGNIFICANT CHANGE FROM PRIOR EXAM: Significant change if liver stiffness measurement is 10% or greater from prior exam. OTHER CONSIDERATIONS: The stage of liver fibrosis may be overestimated in the setting of acute hepatitis, liver inflammation, elevated liver function tests, hepatic vascular congestion, obstructive cholestasis, non-fasting state, and infiltrative diseases such as amyloidosis and lymphoma. In some patients with NAFLD, the liver stiffness thresholds for compensated advanced chronic liver disease may be lower. In causes other than viral hepatitis and NAFLD, liver stiffness thresholds are not well established.
== END 2023-07-25 07:57 | disposition home or self-care (01) ==
LOC: HO.US 07:56
PROVIDERS: Visit Provider Nurse Practitioner Family
DX: R74.01 Elevation of levels of liver transaminase levels (principal)
CPT/HCPCS: 76705; 76981

== ENCOUNTER 2023-09-05 08:31 | Outpatient (REF) | payer OTHER, SELFPAY ==
[2023-09-05 12:28] LABS: Glucose Fasting 119 mg/dL (60-99)
[2023-09-05 12:40] LABS: Estimated Average Glucose 114 mg/dL; Hemoglobin A1c % 5.6 % (<6.0)
== END 2023-09-05 08:32 | disposition home or self-care (01) ==
LOC: HO.WFDLDS 08:31
PROVIDERS: Visit Provider Family Medicine
DX: R73.9 Hyperglycemia, unspecified (principal)
CPT/HCPCS: 36415; 82947; 83036

== ENCOUNTER 2023-10-02 07:52 | Outpatient (AMB) | payer OTHER, SELFPAY ==
--- NOTE | 2023-10-02 07:53 | A.OFFVIS_ITS ---
Vital Signs 10/02/23 07:57 Height 4 ft 10 in Weight 143 lb 1.28 oz BMI 29.9 BP 122/60 Blood Pressure Location Rt brachial Position Sitting Respiration 16 Pulse 83 Pulse Source Pulse Oximeter Pulse Oximetry (%) 98 Oxygen Delivery Method Room Air Intake Visit Reasons: RA/cm Intake Note: Patient presents for RA. Allergies adhesive [ADHESIVE] Allergy (Intermediate, Verified 10/02/23 07:57) REDNESS levofloxacin [From LEVAQUIN] Allergy (Intermediate, Verified 10/02/23 07:57) ITCHINESS Sulfa (Sulfonamide Antibiotics) Allergy (Intermediate, Verified 10/02/23 07:57) Itchiness and Swelling sulfamethoxazole [From BACTRIM] Allergy (Intermediate, Verified 10/02/23 07:57) PHOTOSENSITIVITY/RASH trimethoprim [From BACTRIM] Allergy (Intermediate, Verified 10/02/23 07:57) PHOTOSENSITIVITY/RASH Medication List - Last Reconciled 10/02/23 by Orion Fleming MD acebutolol 200 mg PO DAILY albuterol sulfate 90 mcg/actuation inhalation alendronate 70 mg PO QWEEK aspirin (Adult Aspirin Regimen) 81 mg PO DAILY atorvastatin 20 mg PO BEDTIME B-complex with vitamin C 1 cap PO DAILY bupropion HCl SR 150 mg PO DAILY carisoprodol 350 mg PO BID PRN cetirizine (Zyrtec) 10 mg PO DAILY PRN coenzyme Q10 (CoQ-10) 100 mg PO DAILY famotidine 40 mg PO DAILY gabapentin 600 mg PO BEDTIME Kevzara (sarilumab) 200 mg (1.14 mL) subcut Q2W NS magnesium 250 mg PO DAILY HPI Comments Details: 63-year-old female with seropositive RA returns for follow-up. She states that she has not been feeling well. She can not really specify her she believes it might be allergies. She did not have fevers, diarrhea, shortness of breath. Because she has not been feeling well she has not taken her Kevzara for the last 6 weeks. Her joints ache all over. She does not have any specific swollen joint today. Couple of weeks ago when she was walking with her sister, the walk was less than half a mild. They had to stop 3 times for pain in her ankles and left hip. Initial history: This is a 61-year-old female with seropositive RA presents our evaluation. Her previous private duty aide left the practice. Patient states she feels relatively well overall. She is having triggering of her left thumb and left index fingers. 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 She is tolerating methotrexate, Kevzara and folic acid. [facility] Medical History Seropositive rheumatoid arthritis COPD (chronic obstructive pulmonary disease) Nicotine dependence, cigarettes, uncomplicated Osteoporosis Sessile serrated polyp of colon GERD (gastroesophageal reflux disease) Thyroid nodule Liver cyst Back pain History of pneumonia Pericardial effusion History of tachycardia Family history of malignant hyperthermia Surgical History History of dilation and curettage History of colonoscopy History of section Family History Mother HTN (hypertension) Sister Heart disease Social History Household Members: Spouse and Children Alcohol intake: current Alcohol intake frequency: a few times a month Alcohol type: wine and hard liquor Patient Tobacco Use Status: Current everyday Tobacco user Tobacco use type: Cigarette Cigarettes Per Day: 5 Years Smoked: onset 13yo, 1ppd x 49yrs, now 1/4ppd - 40pyh Advance Directives Date on File: 01/07/20 Female Reproductive History Menstrual Total pregnancies: 7 Number of Living Children: 4 Ab spontaneous: 3 Review of Systems [facility] [place] Reports arthralgias and Reports stiffness Physical Exam Vital Signs: Last Vital Signs Pulse 83 10/02/23 07:57 Resp 16 10/02/23 07:57 BP 122/60 10/02/23 07:57 Pulse Ox 98 10/02/23 07:57 Oxygen Delivery Method Room Air 10/02/23 07:57 BMI result Body Mass Index 29.9 Const General: cooperative, healthy appearing and comfortable Nutritional Appearance: overweight Orientation/consciousness: patient oriented x3 Limitations: no limitations HEENT Head: Yes normocephalic and Yes atraumatic Mouth: moist mucous membranes Resp Effort & Inspection: normal respiratory effort and able to speak in complete sentences Auscultation: clear to auscultation bilaterally Skin General skin exam: dry skin Neuro General: patient oriented x3 Extrem Other: No active synovitis. No tender joints. No triggering of her fingers today. Normal nailfold capillaroscopy Assessment & Plan Assessment & Plan (1) Seropositive rheumatoid arthritis: Comment: +RF+CCP, ?pericarditis dx 2015 MTX & HCQ started 2014 Enbrel added 2016 & was working relatively but couldn't continue due to insurance issues, switched to Humira which was ineffective Kevzara started 2018 effective HCQ DC in 2019 (didn't feel a difference when she stopped it when taking Azithromycin for an infection) MTX DC 02/09 due to transaminitis Code(s): M05.9 - Rheumatoid arthritis with rheumatoid factor, unspecified Category: Medical Plan: 63-year-old with seropositive RA presents for follow-up. Patient has not been using her Kevzara for the last 6 weeks. She is doing much worse overall. She is having generalized joint achiness and stiffness. I do not see any swollen joints on exam however. Advised patient to restart Kevzara regularly 200 mg every other week and we will re-evaluate 3 months Transaminitis improving but patient has had fluctuating transaminitis over the years. Will refer to Gastroenterology Continue Kevzara 200 mg every other week Labs before next visit in 3 months (2) Trigger finger of left hand: Code(s): M65.30 - Trigger finger, unspecified finger Category: Medical Qualifiers: Trigger finger location: thumb Qualified Code(s): M65.312 - Trigger thumb, left thumb Plan: left thumb trigger and left index trigger fingers where injected 06/09. left thumb trigger injected 11/15 Left index trigger injected 04/2023 (3) Osteoporosis: Comment: (Bone Dexa Femoral T-score: -2.6 on 06/14/22) alendronate 04/2023 Code(s): M81.0 - Age-related osteoporosis without current pathological fracture Category: Medical Qualifiers: Osteoporosis type: age-related Presence of current pathological fra cture: without current pathological fracture Qualified Code(s): M81.0 - Age- related osteoporosis without current pathological fracture Plan: Continue with alendronate 70 mg weekly Plan I spent 25 minutes reviewing patient's chart, evaluating patient, ordering diagnostic workup, counseling patient and documenting in the chart Orders: Orders Erythrocyte Sedimentation Rate 3 Months M05.9 - Rheumatoid arthritis with rheumatoid factor, unspecified Complete Blood Count Auto Diff 3 Months M05.9 - Rheumatoid arthritis with rheumatoid factor, unspecified Comprehensive Met. Panel 3 Months M05.9 - Rheumatoid arthritis with rheumatoid factor, unspecified C Reactive Protein 3 Months M05.9 - Rheumatoid arthritis with rheumatoid factor, unspecified Vitamin D 25-OH (D2 and D3) 3 Months Z13.21 - Encounter for screening for nutritional disorder Coding Level of Care Code Est Pt Level 4 (86197) Diagnoses Seropositive rheumatoid arthritis M05.9 Trigger finger of left thumb M65.312 Trigger finger location: thumb Age-related osteoporosis without current pathological fracture M81.0 Osteoporosis type: age-related Presence of current pathological fracture: without current pathological fracture
[2023-10-02 07:57] VITALS: BP 122/60; PULSE 83; RESP 16; O2SAT 98; BMI 29.9
== END 2023-10-02 08:29 | disposition home or self-care (01) ==
PROVIDERS: PCP Family Medicine; Visit Provider Student in an Organized Health Care Education/Training Program
DX: M05.79 Rheumatoid arthritis with rheumatoid factor of multiple sites without organ or systems involvement (principal); M65.312 Trigger thumb, left thumb; M81.0 Age-related osteoporosis without current pathological fracture
CPT/HCPCS: 99214

== ENCOUNTER → 2023-10-02 07:52 | Outpatient (BNVA) | payer OTHER, SELFPAY | PROVIDERS: PCP Family Medicine; Visit Provider Student in an Organized Health Care Education/Training Program ==

== ENCOUNTER 2023-11-21 09:11 | Outpatient (REF) | payer OTHER, SELFPAY ==
[2023-11-21 11:31] LABS: MANUAL DIFF FLAG NO
[2023-11-21 11:39] LABS: Basophils Percent Auto 0.6 % (0-2); Eosinophils Absolute Auto 0.4 X10*3/uL (0.0-0.4); Eosinophils Percent Auto 5.2 % (0-4); Hematocrit 42.7 % (37.0-47.0); Hemoglobin 14.9 g/dl (12.0-16.0); Imm Gran Abs Auto 0.02 X10*3/uL (0.00-0.03); Imm Gran Pct Auto 0.3 % (0.0-0.4); Lymphocytes Absolute Auto 2.7 X10*3/uL (1.2-4.9); Mean Corpuscular HGB Conc 34.9 g/dl (31.0-35.0); Mean Corpuscular Hemoglobin 32.7 pg (27.0-33.0); Mean Corpuscular Volume 93.6 fL (80.0-98.0); Mean Platelet Volume 9.5 fL (9.4-12.3); Monocytes Absolute Auto 0.7 X10*3/uL (0.1-1.2); Monocytes Percent Auto 9.3 % (2-11); Neutrophils Absolute Auto 3.2 x10*3/uL (2.0-8.3); Neutrophils Percent Auto 45.6 % (45-73); Platelet Count 200 X10*3/uL (160-400); Red Blood Count 4.56 X10*6/uL (4.20-5.50); Red Cell Distribution Width 12.4 % (11.0-16.0)
[2023-11-21 12:18] LABS: Erythrocyte Sedimentation Rate 6 MM/HR (0-20)
[2023-11-21 12:46] LABS: Alanine Aminotransferase 46 U/L (0-31); Alkaline Phosphatase 61 U/L (39-117); Anion Gap 14 (12-20); Aspartate Amino Transferase 37 U/L (5-31); Bilirubin Total 0.4 mg/dL (0.0-1.0); Blood Urea Nitrogen 14 mg/dL (9-16); C Reactive Protein < 0.10 mg/dL (< or = 0.50); Calcium 9.1 mg/dL (8.4-10.2); Carbon Dioxide 24 mmol/L (22-29); Chloride 108 mmol/L (96-108); Estimated Glomerular Filt Rate > 60; Glucose Random 99 mg/dL (60-115); Potassium 4.3 mmol/L (3.3-5.1); Sodium 142 mmol/L (135-145); Total Protein 6.8 g/dL (6.5-8.0)
[2023-11-24 14:12] LABS: Vitamin D 25-OH, D2 <4 ng/mL; Vitamin D 25-OH, D3 39 ng/mL; Vitamin D 25-OH, Total 39 ng/mL (30-100)
== END 2023-11-21 09:12 | disposition home or self-care (01) ==
LOC: HO.WFDLDS 09:11
PROVIDERS: Visit Provider Student in an Organized Health Care Education/Training Program
DX: M05.9 Rheumatoid arthritis with rheumatoid factor, unspecified (principal); Z13.21 Encounter for screening for nutritional disorder
CPT/HCPCS: 36415; 80053; 82306; 85025; 85652; 86140

== ENCOUNTER 2023-11-29 07:54 | Outpatient (REF) | payer OTHER, SELFPAY ==
--- NOTE | ~2023-11-29 | CT_ITS ---
EXAMINATION: CT LOW-DOSE SCREENING CHEST WITHOUT CONTRAST CLINICAL INFORMATION: Nicotine dependence, cigarettes, uncomplicated. The patient is a current smoker with a 49 pack-year history of smoking. COMPARISON: Multiple prior CT scans of the chest, the most recent of which is dated 11/25/2022 and the most remote of which is dated 01/27/2015. TECHNIQUE: Multidetector volumetric CT imaging of the chest is performed on a Siemens SOMATOM Definition scanner without contrast using low dose technique. Additional 2D coronal and sagittal reformatted images and axial 3D maximum intensity projection (MIP) images are generated on the CT workstation. This CT examination was performed using dose optimization techniques as appropriate, variously including the following: *Automated exposure control *Adjustment of mA and/or kV according to patient size (this includes techniques or standardized protocols for targeted exams where dose is matched to indication/reason for exam; i.e. extremities or head) *Use of iterative reconstruction technique TOTAL EXAM DLP: 43 mGy-cm. CTDIvol: 1.43 mGy. FINDINGS: PULMONARY NODULES: At least 10 pulmonary nodules are present (see saved arguello images). These all appear unchanged and the largest is at the left lower lobe measuring 5 mm (5:270 compare prior 5:280). There is no new, increasing size or suspicious pulmonary nodules seen. LUNGS: Lungs bilaterally symmetrically expanded. There is mild diffuse emphysematous changes along with moderate bronchial thickening without bronchiectasis. No effusion or pneumothorax. Central airways patent. MEDIASTINUM: No mediastinal, hilar or axillary adenopathy or free fluid collection. CORONARY ARTERY CALCIFICATION: Present THYROID GLAND: Unremarkable to the extent seen. CARDIOVASCULAR STRUCTURES: Aortic and heart size normal. No pericardial effusion. CHEST WALL/AXILLA: Unremarkable. UPPER ABDOMEN: Included portions of the solid organs in the upper abdomen unremarkable on noncontrast imaging. OSSEOUS STRUCTURES: No suspicious focal findings. CT/CT lung screening IMPRESSION: Stable pulmonary nodules with no evidence to suggest malignancy. ASSESSMENT: 1. Lung-RADS Category 2: Benign appearance or behavior of nodules. N/A 2. Lung-RADS Category S: Negative. There are no clinically significant or potentially clinically significant findings not related to the lungs requiring urgent additional evaluation. RECOMMENDATION: Continued routine annual low-dose CT lung screening in 1 year is recommended. An order for CT CHEST LOW DOSE CANCER SCREENING ([id number]) can be placed. Electronically signed by: Evan Choi MD 12/12/2023 01:37 PM EDT RP
== END 2023-11-29 07:55 | disposition home or self-care (01) ==
LOC: HO.CT 07:54
PROVIDERS: PCP Family Medicine; Visit Provider Physician Assistant Medical
DX: Z12.2 Encounter for screening for malignant neoplasm of respiratory organs (principal); F17.210 Nicotine dependence, cigarettes, uncomplicated
CPT/HCPCS: 71271

== ENCOUNTER 2024-01-02 07:57 | Outpatient (AMB) | payer OTHER, SELFPAY ==
--- NOTE | 2024-01-02 08:00 | MHC.OFFVIS ---
Vital Signs 01/02/24 08:04 Height 4 ft 10 in Weight 141 lb 5.061 oz BMI 29.5 BP 122/60 Blood Pressure Location Rt brachial Position Sitting Pulse 81 Pulse Source Pulse Oximeter Pulse Oximetry (%) 98 Oxygen Delivery Method Room Air Intake Visit Reasons: RA Intake Note: Patient presents for RA. Allergies adhesive [ADHESIVE] Allergy (Intermediate, Verified 01/02/24 08:03) REDNESS levofloxacin [From LEVAQUIN] Allergy (Intermediate, Verified 01/02/24 08:03) ITCHINESS Sulfa (Sulfonamide Antibiotics) Allergy (Intermediate, Verified 01/02/24 08:03) Itchiness and Swelling sulfamethoxazole [From BACTRIM] Allergy (Intermediate, Verified 01/02/24 08:03) PHOTOSENSITIVITY/RASH trimethoprim [From BACTRIM] Allergy (Intermediate, Verified 01/02/24 08:03) PHOTOSENSITIVITY/RASH Medication List - Last Reconciled 01/02/24 by Orion Fleming MD acebutolol 200 mg PO DAILY albuterol sulfate 90 mcg/actuation inhalation alendronate 70 mg PO QWEEK aspirin (Adult Aspirin Regimen) 81 mg PO DAILY atorvastatin 20 mg PO BEDTIME B-complex with vitamin C 1 cap PO DAILY bupropion HCl SR 150 mg PO DAILY carisoprodol 350 mg PO BID PRN cetirizine (Zyrtec) 10 mg PO DAILY PRN coenzyme Q10 (CoQ-10) 100 mg PO DAILY famotidine 40 mg PO DAILY gabapentin 600 mg PO BEDTIME Kevzara (sarilumab) 200 mg (1.14 mL) subcut Q2W NS magnesium 250 mg PO DAILY HPI Comments Details: 63-year-old female with seropositive RA returns for follow-up. She states that she is doing reasonably well overall. No significant joint pain or swelling. Has not had any significant for triggering recently. She states that her nose is stuffed for the last week or so, no fevers or sinus pain. No runny nose or cough. Initial history: This is a 61-year-old female with seropositive RA presents our evaluation. Her previous social work supervisor left the practice. Patient states she feels relatively well overall. She is having triggering of her left thumb and left index fingers. 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 She is tolerating methotrexate, Kevzara and folic acid. [facility] Medical History Seropositive rheumatoid arthritis COPD (chronic obstructive pulmonary disease) Nicotine dependence, cigarettes, uncomplicated Osteoporosis Sessile serrated polyp of colon GERD (gastroesophageal reflux disease) Thyroid nodule Liver cyst Back pain History of pneumonia Pericardial effusion History of tachycardia Family history of malignant hyperthermia Surgical History History of dilation and curettage History of colonoscopy History of section Family History Mother HTN (hypertension) Sister Heart disease Social History Household Members: Spouse and Children Alcohol intake: current Alcohol intake frequency: a few times a month Alcohol type: wine and hard liquor Patient Tobacco Use Status: Current everyday Tobacco user Tobacco use type: Cigarette Cigarettes Per Day: 5 Years Smoked: onset 13yo, 1ppd x 49yrs, now 1/4ppd - 40pyh Advance Directives Date on File: 01/07/20 Female Reproductive History Menstrual Total pregnancies: 7 Number of Living Children: 4 Ab spontaneous: 3 Review of Systems ENT Details: Stuffy nose Musc Denies arthralgias and Denies joint swelling Physical Exam Vital Signs: Last Vital Signs Pulse 81 01/02/24 08:04 BP 122/60 01/02/24 08:04 Pulse Ox 98 01/02/24 08:04 Oxygen Delivery Method Room Air 01/02/24 08:04 BMI result Body Mass Index 29.5 Const General: cooperative, healthy appearing and comfortable Nutritional Appearance: overweight Orientation/consciousness: patient oriented x3 Limitations: no limitations HEENT Head: Yes normocephalic and Yes atraumatic Mouth: moist mucous membranes Resp Effort & Inspection: normal respiratory effort and able to speak in complete sentences Auscultation: clear to auscultation bilaterally Skin General skin exam: dry skin Neuro General: patient oriented x3 Extrem Other: No active synovitis. No tender joints. No triggering of her fingers today. Normal nailfold capillaroscopy Assessment & Plan Assessment & Plan (1) Seropositive rheumatoid arthritis: Comment: +RF+CCP, ?pericarditis dx 2015 MTX & HCQ started 2014 Enbrel added 2017 & was working relatively but couldn't continue due to insurance issues, switched to Humira which was ineffective Kevzara started 2019 effective HCQ DC in 2020 (didn't feel a difference when she stopped it when taking Azithromycin for an infection) MTX DC 02/09 due to transaminitis Code(s): M05.9 - Rheumatoid arthritis with rheumatoid factor, unspecified Category: Medical Plan: 63-year-old with seropositive RA presents for follow-up. On Kevzara 200 mg every other week. Doing well today with no active synovitis. Patient's transaminitis has been fluctuating over the years. We discontinued her methotrexate. She continues to have fluctuating transaminitis. Advised patient to skip for 2 doses then repeat her liver enzymes. If transaminitis seems to coincide with the Kevzara dose then we may have to switch DMARDs Labs before next visit in 3 months (2) Trigger finger of left hand: Code(s): M65.30 - Trigger finger, unspecified finger Category: Medical Qualifiers: Trigger finger location: thumb Qualified Code(s): M65.312 - Trigger thumb, left thumb Plan: left thumb trigger and left index trigger fingers where injected 06/09. left thumb trigger injected 11/15 Left index trigger injected 04/2023 (3) Osteoporosis: Comment: (Bone Dexa Femoral T-score: -2.6 on 06/14/22) alendronate 04/2023 Code(s): M81.0 - Age-related osteoporosis without current pathological fracture Category: Medical Qualifiers: Osteoporosis type: age-related Presence of current pathological fracture: without current pathological fracture Qualified Code(s): M81.0 - Age-related osteoporosis without current pathological fracture Plan: Continue with alendronate 70 mg weekly (4) Immunization counseling: Code(s): Z71.85 - Encounter for immunization safety counseling Category: Medical Plan: Patient stated that she will get her flu vaccine, she already received the Shingrix vaccine. She is on the fence about COVID booster. Advised patient to get the RSV vaccine Plan I spent 25 minutes reviewing patient's chart, evaluating patient, ordering diagnostic workup, counseling patient and documenting in the chart Orders: Orders Complete Blood Count Auto Diff 1 Month M05.9 - Rheumatoid arthritis with rheumatoid factor, unspecified Comprehensive Met. Panel 1 Month M05.9 - Rheumatoid arthritis with rheumatoid factor, unspecified Comprehensive Met. Panel Today M05.9 - Rheumatoid arthritis with rheumatoid factor, unspecified C Reactive Protein Today M05.9 - Rheumatoid arthritis with rheumatoid factor, unspecified C Reactive Protein 1 Month M05.9 - Rheumatoid arthritis with rheumatoid factor, unspecified Erythrocyte Sedimentation Rate 1 Month M05.9 - Rheumatoid arthritis with rheumatoid factor, unspecified Complete Blood Count Auto Diff Today M05.9 - Rheumatoid arthritis with rheumatoid factor, unspecified Erythrocyte Sedimentation Rate Today M05.9 - Rheumatoid arthritis with rheumatoid factor, unspecified Coding Level of Care Code Est Pt Level 4 (60390) Complex EM visit Add On [id number] Diagnoses Seropositive rheumatoid arthritis M05.9 Trigger finger of left thumb M65.312 Trigger finger location: thumb Age-related osteoporosis without current pathological fracture M81.0 Osteoporosis type: age-related Presence of current pathological fracture: without current pathological fracture Immunization counseling Z71.85
[2024-01-02 08:04] VITALS: BP 122/60; PULSE 81; O2SAT 98; BMI 29.5
== END 2024-01-02 08:20 | disposition home or self-care (01) ==
PROVIDERS: PCP Family Medicine; Visit Provider Student in an Organized Health Care Education/Training Program
DX: M05.79 Rheumatoid arthritis with rheumatoid factor of multiple sites without organ or systems involvement (principal); M65.312 Trigger thumb, left thumb; M81.0 Age-related osteoporosis without current pathological fracture; Z71.85 Encounter for immunization safety counseling
CPT/HCPCS: 99214

== ENCOUNTER → 2024-01-02 07:57 | Outpatient (BNVA) | payer OTHER, SELFPAY | PROVIDERS: PCP Family Medicine; Visit Provider Student in an Organized Health Care Education/Training Program ==

== ENCOUNTER 2024-01-02 08:33 | Outpatient (AMB) | payer OTHER, SELFPAY ==
[2024-01-02 08:37] VITALS: BMI 29.5
--- NOTE | 2024-01-02 08:37 | MHC.OFFVIS ---
Vital Signs 01/02/24 08:37 Height 4 ft 10 in Weight 141 lb BMI 29.5 Comment Vitals performed 0.5 hrs prior to this appt Intake Visit Reasons: 6 month follow up transaminitis Intake Note: Adriana presents in office today for a scheduled 6 mos FUV. CC: Labs and US were performed since last visit. No RX orders were placed. Certified Midwife Required: No Allergies adhesive [ADHESIVE] Allergy (Intermediate, Verified 01/02/24 08:39) REDNESS levofloxacin [From LEVAQUIN] Allergy (Intermediate, Verified 01/02/24 08:39) ITCHINESS Sulfa (Sulfonamide Antibiotics) Allergy (Intermediate, Verified 01/02/24 08:39) Itchiness and Swelling sulfamethoxazole [From BACTRIM] Allergy (Intermediate, Verified 01/02/24 08:39) PHOTOSENSITIVITY/RASH trimethoprim [From BACTRIM] Allergy (Intermediate, Verified 01/02/24 08:39) PHOTOSENSITIVITY/RASH HPI HPI 6 month follow up transaminitis: Details: LAST VISIT: Transaminitis Liver disease Plan Most likely liver enzymes elevated due to methotrexate therapy for RA. However we will rule out autoimmune disorders, hemochromatosis. Will order ultrasound with elastography. Possibility that this could also be Cox that was aggravated by methotrexate. Discussed with patient losing weight, high-protein, low-fat low carb diet. Patient will return in 6 months, sooner on as needed basis. Patient is agreeable to this plan and verbalizes understanding of instructions. She was given the opportunity to ask questions and all questions answered. ? Thank you for allowing me to participate in her care Orders Orders Alpha Fetoprotein Today R79.89 Prothrombin Time INR Today R74.8 Smooth Muscle Antibody Today R79.89 Hepatitis A,B,C Profile Today R79.89 Mitochondrial Antibody Today R79.89 US abdomen rodriguez w elastography Today R74.01 Ceruloplasmin Today R79.89 Ferritin Today R74.8 TODAY'S VISIT Patient is here today for follow-up. Patient reports that overall she has been feeling well. Denies any abdominal pain or discomfort. Patient was off her rheumatoid medication and her liver enzymes normalized. Started taking medication and her liver enzymes increase. Patient had an appointment with food processing chemist today. Methotrexate was discontinued and Kevzara still active. Patient will stop Kevzara for couple doses and then see if transaminitis improves. Patient reports that otherwise she has been feeling well, denies any GI concerning symptoms today. Ultrasound results and lab results discussed with patient [facility] Medical History Seropositive rheumatoid arthritis COPD (chronic obstructive pulmonary disease) Nicotine dependence, cigarettes, uncomplicated Osteoporosis Sessile serrated polyp of colon GERD (gastroesophageal reflux disease) Thyroid nodule Liver cyst Back pain History of pneumonia Pericardial effusion History of tachycardia Family history of malignant hyperthermia Surgical History History of dilation and curettage History of colonoscopy History of section Family History Mother HTN (hypertension) Sister Heart disease Social History Household Members: Spouse and Children Alcohol intake: current Alcohol intake frequency: a few times a month Alcohol type: wine and hard liquor Patient Tobacco Use Status: Current everyday Tobacco user Tobacco use type: Cigarette Cigarettes Per Day: 5 Years Smoked: onset 13yo, 1ppd x 49yrs, now 1/4ppd - 40pyh Advance Directives Date on File: 01/07/20 Review of Systems Const Denies weight gain and Denies weight loss ENT Reports no additional complaints, Denies dysphagia and Denies odynophagia Card Reports no additional complaints Resp Reports no additional complaints GI Denies abdominal pain, Denies belching, Denies melena, Denies bloating, Denies change in bowel habits, Denies dysphagia, Denies excessive flatus, Denies dyspepsia, Denies heartburn, Denies diarrhea, Denies loose stools, Denies nausea, Denies odynophagia and Denies vomiting Musc Reports no additional complaints Neuro Reports no additional complaints Psych Reports no additional complaints Endo Reports no additional complaints Physical Exam Vital Signs: BMI result Body Mass Index 29.5 Const General: healthy appearing, no acute distress and well developed Nutritional Appearance: well nourished Orientation/consciousness: patient oriented x3 Resp Effort & Inspection: normal respiratory effort, able to speak in complete sentences, no tracheal deviation and symmetric chest movement Auscultation: clear to auscultation bilaterally Cardio Rate: regular rate GI Inspection: Yes normal to inspection and No distended Palpation (GI): Soft to palpation, not firm, nontender and No hepatosplenomegaly present Auscultation: normal bowel sounds General: Yes no CVA tenderness Back/Spine/Pelvis Back: no CVA tenderness Skin General skin exam: elasticity normal, turgor normal and dry skin Neuro General: patient oriented x3 Psych Appearance: grossly normal Mental Status: mental status grossly normal Results Reviewed Results Reviewed: Laboratory Tests 05/25/23 07/11/23 09/05/23 08:07 08:55 08:34 Hemoglobin A1c % 5.6 Ferritin 327 H AST 17 ALT 20 Liver Fibrosis Stage F1 C-Reactive Protein 1.53 H Ceruloplasmin 39 Alpha Fetoprotein 2.9 25-OH Vitamin D Total 25 L Anti-Mitochondrial Ab NEGATIVE Anti-Smooth Muscle Ab <20 Hepatitis A IgM Ab Nonreactive Hep Bs Antigen Negative Hep Bs Antibody REACTIVE Hep B Core Total Ab Nonreactive Hepatitis C Ab (EIA) Nonreactive 11/21/23 09:12 Hemoglobin A1c % Ferritin AST 37 H ALT 46 H Liver Fibrosis Stage C-Reactive Protein < 0.10 Ceruloplasmin Alpha Fetoprotein 25-OH Vitamin D Total 39 Anti-Mitochondrial Ab Anti-Smooth Muscle Ab Hepatitis A IgM Ab Hep Bs Antigen Hep Bs Antibody Hep B Core Total Ab Hepatitis C Ab (EIA) US WITH ELASTOGRAPHY FINDINGS: PANCREAS: Normal. The visualized pancreatic head and body are normal in appearance. The remainder of the pancreas is obscured from visualization by the overlying bowel gas. LIVER: The liver demonstrates normal size, contour and generally increased echogenicity. No focal lesion or intrahepatic biliary duct dilatation. The right lobe measures 12.0 cm in length. The left lobe measures 9.7 cm in length. Portal flow is towards the liver (hepatopetal). Shear wave liver elastography median stiffness is 1.47 m/s (reference: normal median stiffness is 1.3 m/s or less). IQR/median stiffness to assess sampling precision is 0.17 (reference: good quality data set is IQR/median stiffness of 0.15 or less). GALLBLADDER: A 3 mm nonmobile polyp is incidentally noted. The gallbladder is physiologically distended without evidence of stones, sludge, polyps, wall thickening or pericholecystic fluid. COMMON BILE DUCT: Normal in caliber measuring 0.3 cm in diameter. RIGHT KIDNEY: Normal. No hydronephrosis. No renal calculi or focal parenchymal lesions. The kidney measures 8.8 cm in maximum dimension. FREE FLUID: None. US/US abdomen rodriguez w elastography IMPRESSION: 1. There is generalized increase in hepatic echotexture, consistent with fatty infiltration or hepatocellular disease. Please correlate clinically. No focal hepatic mass or intrahepatic biliary dilatation is seen. 2. Liver elastography: Although measurements appear to rule out compensated advanced chronic liver disease, there is statistical variability of the sampling which decreases accuracy. Assessment & Plan Assessment & Plan (1) Transaminitis: Code(s): R74.01 - Elevation of levels of liver transaminase levels Category: Medical (2) Liver disease: Code(s): K76.9 - Liver disease, unspecified Plan Nonalcoholic fatty liver. Patient encouraged to stay away from food high in fat. Patient will try more protein, less carbs, low-sodium diet. Patient's food processing chemist is doing liver enzymes trying to adjust her medication. She will follow-up in our office in 6 months, sooner on as needed basis. She is agreeable to this plan and verbalizes understanding of instructions. She was given the opportunity to ask questions and all questions answered. Thank you for allowing me to participate in her care Coding Level of Care Code Est Pt Level 4 (23300) Diagnoses Transaminitis R74.01 Liver disease K76.9 Time Spent (min) 30 Comment 20 minutes spent with patient and additional 10 minutes spent reviewing her records
== END 2024-01-02 09:03 | disposition home or self-care (01) ==
PROVIDERS: PCP Family Medicine; Visit Provider Nurse Practitioner Family
DX: R74.01 Elevation of levels of liver transaminase levels (principal); K76.9 Liver disease, unspecified
CPT/HCPCS: 99214

== ENCOUNTER 2024-01-06 10:20 | Outpatient (REF) | payer OTHER, SELFPAY ==
[2024-01-06 10:38] LABS: MANUAL DIFF FLAG NO
[2024-01-06 10:53] LABS: Basophils Percent Auto 0.6 % (0-2); Eosinophils Absolute Auto 0.2 X10*3/uL (0.0-0.4); Hematocrit 42.8 % (37.0-47.0); Hemoglobin 14.5 g/dl (12.0-16.0); Imm Gran Abs Auto 0.01 X10*3/uL (0.00-0.03); Imm Gran Pct Auto 0.2 % (0.0-0.4); Lymphocytes Absolute Auto 1.4 X10*3/uL (1.2-4.9); Lymphocytes Percent Auto 28.5 % (20-40); Mean Corpuscular HGB Conc 33.9 g/dl (31.0-35.0); Mean Corpuscular Hemoglobin 32.5 pg (27.0-33.0); Mean Platelet Volume 9.1 fL (9.4-12.3); Monocytes Absolute Auto 0.5 X10*3/uL (0.1-1.2); Monocytes Percent Auto 9.5 % (2-11); Neutrophils Absolute Auto 2.8 x10*3/uL (2.0-8.3); Neutrophils Percent Auto 57.2 % (45-73); Platelet Count 200 X10*3/uL (160-400); Red Blood Count 4.46 X10*6/uL (4.20-5.50); Red Cell Distribution Width 12.6 % (11.0-16.0)
[2024-01-06 11:30] LABS: Erythrocyte Sedimentation Rate 7 MM/HR (0-20)
[2024-01-06 11:54] LABS: Alanine Aminotransferase 45 U/L (0-31); Albumin Level 4.2 g/dL (3.5-5.0); Alkaline Phosphatase 51 U/L (39-117); Anion Gap 12 (12-20); Aspartate Amino Transferase 30 U/L (5-31); Bilirubin Total 0.6 mg/dL (0.0-1.0); Blood Urea Nitrogen 20 mg/dL (9-16); C Reactive Protein < 0.10 mg/dL (< or = 0.50); Calcium 9.1 mg/dL (8.4-10.2); Carbon Dioxide 28 mmol/L (22-29); Chloride 109 mmol/L (96-108); Estimated Glomerular Filt Rate > 60; Glucose Random 120 mg/dL (60-115); Potassium 4.4 mmol/L (3.3-5.1); Sodium 145 mmol/L (135-145); Total Protein 6.7 g/dL (6.5-8.0)
== END 2024-01-06 10:21 | disposition home or self-care (01) ==
LOC: HO.LAB 10:20
PROVIDERS: PCP Family Medicine; Visit Provider Student in an Organized Health Care Education/Training Program
DX: M05.9 Rheumatoid arthritis with rheumatoid factor, unspecified (principal)
CPT/HCPCS: 36415; 80053; 85025; 85652; 86140

== ENCOUNTER 2024-02-14 08:24 | Outpatient (REF) | payer OTHER, SELFPAY ==
[2024-02-14 11:23] LABS: MANUAL DIFF FLAG NO
[2024-02-14 11:37] LABS: Basophils Percent Auto 0.4 % (0-2); Eosinophils Absolute Auto 0.3 X10*3/uL (0.0-0.4); Eosinophils Percent Auto 3.4 % (0-4); Imm Gran Abs Auto 0.04 X10*3/uL (0.00-0.03); Imm Gran Pct Auto 0.4 % (0.0-0.4); Lymphocytes Absolute Auto 2.8 X10*3/uL (1.2-4.9); Lymphocytes Percent Auto 28.3 % (20-40); Mean Corpuscular HGB Conc 33.3 g/dl (31.0-35.0); Mean Corpuscular Hemoglobin 32.3 pg (27.0-33.0); Mean Platelet Volume 9.4 fL (9.4-12.3); Monocytes Absolute Auto 0.7 X10*3/uL (0.1-1.2); Monocytes Percent Auto 7.1 % (2-11); Neutrophils Absolute Auto 6.1 x10*3/uL (2.0-8.3); Neutrophils Percent Auto 60.4 % (45-73); Platelet Count 334 X10*3/uL (160-400); Red Blood Count 4.33 X10*6/uL (4.20-5.50); Red Cell Distribution Width 12.2 % (11.0-16.0)
[2024-02-14 11:57] LABS: Alanine Aminotransferase 30 U/L (0-31); Alkaline Phosphatase 68 U/L (39-117); Anion Gap 15 (12-20); Aspartate Amino Transferase 26 U/L (5-31); Bilirubin Total 0.4 mg/dL (0.0-1.0); Blood Urea Nitrogen 17 mg/dL (9-16); C Reactive Protein 1.03 mg/dL (< or = 0.50); Calcium 9.3 mg/dL (8.4-10.2); Carbon Dioxide 27 mmol/L (22-29); Chloride 107 mmol/L (96-108); Estimated Glomerular Filt Rate > 60; Glucose Random 130 mg/dL (60-115); Potassium 4.9 mmol/L (3.3-5.1); Sodium 144 mmol/L (135-145); Total Protein 7.1 g/dL (6.5-8.0)
[2024-02-14 12:17] LABS: Erythrocyte Sedimentation Rate 45 MM/HR (0-20)
== END 2024-02-14 08:25 | disposition home or self-care (01) ==
LOC: HO.WFDLDS 08:24
PROVIDERS: Visit Provider Student in an Organized Health Care Education/Training Program
DX: M05.9 Rheumatoid arthritis with rheumatoid factor, unspecified (principal)
CPT/HCPCS: 36415; 80053; 85025; 85652; 86140

== ENCOUNTER 2024-02-26 08:35 | Outpatient (REF) | payer OTHER, SELFPAY ==
[2024-02-26 12:31] LABS: Influenza A PCR NEGATIVE (Negative); Influenza B PCR NEGATIVE (Negative); Resp Syncy Virus RNA Qual PCR NEGATIVE (Negative); SARS COV2 PCR INHOUSE NEGATIVE (Negative)
== END 2024-02-26 08:36 | disposition home or self-care (01) ==
LOC: HO.LAB 08:35
PROVIDERS: PCP Family Medicine; Visit Provider Nurse Practitioner Family
DX: J06.9 Acute upper respiratory infection, unspecified (principal)
CPT/HCPCS: 0241U

== ENCOUNTER 2024-02-26 08:35 | Outpatient (AMB) | payer OTHER, SELFPAY ==
--- NOTE | 2024-02-26 08:36 | MHC.PC.OV ---
Vital Signs 02/26/24 08:40 Height 4 ft 10 in Weight 139 lb BMI 29.0 BP 124/59 L Blood Pressure Location Rt brachial Position Sitting Respiration 16 Pulse 76 Pulse Source Pulse Oximeter Temp 96.8 F Temp Source Temporal Artery Scan Pulse Oximetry (%) 97 Oxygen Delivery Method Room Air Intake Visit Reasons: sinus issues/fell last night Intake Note: patient her c/o sinus issues and she fell last night Dressing Room Porter Required: No Is last menstrual period known: No Post menopausal: No Patient : No Allergies adhesive [ADHESIVE] Allergy (Intermediate, Verified 02/26/24 08:37) REDNESS levofloxacin [From LEVAQUIN] Allergy (Intermediate, Verified 02/26/24 08:37) ITCHINESS Sulfa (Sulfonamide Antibiotics) Allergy (Intermediate, Verified 02/26/24 08:37) Itchiness and Swelling sulfamethoxazole [From BACTRIM] Allergy (Intermediate, Verified 02/26/24 08:37) PHOTOSENSITIVITY/RASH trimethoprim [From BACTRIM] Allergy (Intermediate, Verified 02/26/24 08:37) PHOTOSENSITIVITY/RASH Tobacco use date assessed: 02/26/24 Dental Screening Dental Screen Date: 02/26/24 Did you have a dental visit in the last 12 months?: Yes Did you have a dental problem in the last 6 months where you did not have access to dental care?: No Was dental information given to patient?: Patient has dentist HPI HPI Comments History of Present Illness Details The patient is a 63-year-old female presenting with symptoms suggestive of a possible sinus infection and viral upper respiratory infection. She reports nasal congestion with rhinorrhea and a headache predominantly on the right side, which started two nights ago and has progressively worsened. Additionally, she is experiencing a dry cough. The patient conducted a home COVID-19 test, which returned negative results. She mentions past exposure to a person diagnosed with walking pneumonia but currently does not recall symptoms of bacterial infection. Symptomatically, there is also a history of wheezing, though the patient attributes this to her smoking habit, around five cigarettes per day. In her recent experience of a fall while escorting a family member to a car, she injured her left wrist and right knee. She describes the wrist as having mild pain likely due to a bruise, with no significant swelling or redness. Her knee experienced an abrasion but has since improved. For her nasal and headache symptoms, she has used [id number] medication with some relief noted. She intends to start prescribed cetirizine for allergy management but has not yet done so. [facility] Medical History Seropositive rheumatoid arthritis COPD (chronic obstructive pulmonary disease) Nicotine dependence, cigarettes, uncomplicated Osteoporosis Sessile serrated polyp of colon GERD (gastroesophageal reflux disease) Thyroid nodule Liver cyst Back pain History of pneumonia Pericardial effusion History of tachycardia Family history of malignant hyperthermia Surgical History History of dilation and curettage History of colonoscopy History of section Family History Mother HTN (hypertension) Sister Heart disease Social History Household Members: Spouse and Children Housing: House Alcohol intake: current Alcohol intake frequency: a few times a month Alcohol type: wine and hard liquor Patient Tobacco Use Status: Current everyday Tobacco user Tobacco use type: Cigarette Cigarettes Per Day: 5 Years Smoked: onset 13yo, 1ppd x 49yrs, now 1/4ppd - 40pyh Packs per year/per ci.00 Advance Directives Date on File: 01/07/20 Patient : No service: No Current occupational status: employed Current occupational exposures/hazards: No Cognitive needs: No Hearing needs: No Vision needs: Yes Review of Systems Const Details: Const Denies chills, Denies fatigue, Denies fever(s), Reports headache(s) and Denies weakness ENT Denies dizziness and Denies headache(s) Card Denies chest pain, Denies lightheadedness, Denies dyspnea and Denies other (Palpitations) Resp Reports dry cough, Denies dyspnea, Reports wheezing and Denies other ( shortness of breath) GI Denies abdominal pain, Denies melena, Denies hematochezia, Denies change in bowel habits, Denies dyspepsia and Denies nausea Denies hematuria and Denies dysuria Musc Reports left wrist discomfort, improved right knee abrasion Skin/Breast Denies rash, Denies unusual bruising and Denies wounds Neuro Denies abnormal gait, Denies dizziness, Reports headache(s), Denies memory loss, Denies numbness, Denies Sensory deficit (Neuro), Denies tingling and Denies weakness Psych Denies anxiety, Denies depression, Denies memory loss Endo Denies cold intolerance, Denies fatigue, Denies heat intolerance, Denies polydipsia and Denies polyuria Aller/Immun Denies wheezing Physical exam (Primary Care) Vital Signs: Last Vital Signs Temp 96.8 F 02/26/24 08:40 Pulse 76 02/26/24 08:40 Resp 16 02/26/24 08:40 BP 124/59 L 02/26/24 08:40 Pulse Ox 97 02/26/24 08:40 Oxygen Delivery Method Room Air 02/26/24 08:40 BMI result Body Mass Index 29.0 Tobacco/Smoking Status: Tobacco use Status Tobacco use date assessed 02/26/24 02/26/24 08:42 Patient Tobacco Use Status Current everyday Tobacco 02/26/24 08:42 Tobacco use type Cigarette 02/26/24 08:42 Const Other: General: no acute distress and well developed Nutritional Appearance: well nourished Orientation/consciousness: patient oriented x3 HENMT Head: Yes normocephalic and Yes atraumatic Eyes General: appearance normal, both eyes and all related structures Pupils: Equal, round and reactive pupils present EOM: EOMs intact bilaterally Resp Effort & Inspection: normal respiratory effort Auscultation: clear but slightly diminished to auscultation bilaterally Cardio Rate: regular rate Rhythm: regular rhythm Heart sounds: S1 normal heart sound present, S2 normal heart sound present, no gallops, no murmurs and no rubs GI Palpation (GI): No Abdominal aortic bruit present, Soft to palpation, nontender, No hepatosplenomegaly present and No Rebound tenderness present Auscultation: normal bowel sounds General: Yes no CVA tenderness Back/Spine/Pelvis Back: no CVA tenderness Cervical Spine: cervical ROM normal and No Cervical spine tenderness Thoracic/Lumbar Spine: thoraco-lumbar ROM normal, No pain with thoraco-lumbar ROM, No thoracic spinal tenderness and No lumbar spinal tenderness Extrem General: Yes normal to inspection, No edema and No calf tenderness Skin General: warm and dry. Normal skin color. Normal skin turgor Neuro General: patient oriented x3, gait normal and no focal neuro deficit Cranial nerves: Yes Equal, round and reactive pupils present Cognition (Neuro): normal cognition Gait exam (Neuro): Normal gait present Sensory Exam: No Sensory deficit (Neuro) Psych Appearance: grossly normal Affect: normal affect Attitude: cooperative Thought process: Normal thought process present Coding Level of Care Code Est Pt Level 3 (48246) Diagnoses Viral upper respiratory illness J06.9 Left wrist pain M25.532 Tobacco use disorder F17.200 Assessment & Plan Assessment & Plan (1) Viral upper respiratory illness: Code(s): J06.9 - Acute upper respiratory infection, unspecified Category: Medical Plan: Encourage the use of cetirizine daily. Monitor symptoms. Recommend COVID-19, flu, and RSV testing. (2) Left wrist pain: Code(s): M25.532 - Pain in left wrist Category: Medical Plan: Continue application of warm compresses on the left wrist. Utilize analgesics like acetaminophen and ibuprofen for discomfort. (3) Tobacco use disorder: Code(s): F17.200 - Nicotine dependence, unspecified, uncomplicated Category: Medical Plan: Advised on smoking cessation. Plan During our discussion, I emphasized that the patient is likely experiencing a viral respiratory infection rather than sinusitis at this stage. I reassured her that most sinus infections begin virally and progress to bacterial in some cases. We discussed starting cetirizine daily for her allergies and the importance of confirming the viral nature through COVID-19, flu, and RSV testing performed. I also reviewed the management of her fall-related injuries, recommending analgesics and warm compresses. The patient was advised to monitor her symptoms closely and follow up if they worsen. Orders: Orders SARS-CoV2/FLU/RSV Today J06.9 - Acute upper respiratory infection, unspecified Patient Instructions: - Begin taking cetirizine daily as recommended for allergy symptoms. - Continue using acetaminophen or ibuprofen to manage pain. - Apply warm compresses to the left wrist as needed. - Monitor for any changes in symptoms and return if they worsen. - Plan to reduce or cease smoking for overall health benefit. Patient was informed and verbally consented to the use of an ambient scribe for clinic note documentation during this visit.
[2024-02-26 08:40] VITALS: BP 124/59; PULSE 76; RESP 16; TEMP 36; O2SAT 97; BMI 29.0
== END 2024-02-26 10:02 | disposition home or self-care (01) ==
LOC: HO.HMCFM 08:35
PROVIDERS: PCP Family Medicine; Visit Provider Nurse Practitioner Family
DX: J06.9 Acute upper respiratory infection, unspecified (principal); M25.532 Pain in left wrist; F17.200 Nicotine dependence, unspecified, uncomplicated

== ENCOUNTER 2024-05-13 08:44 | Outpatient (REF) | payer OTHER, SELFPAY ==
--- NOTE | ~2024-05-13 | FL_ITS ---
EXAMINATION: XR FLUOROSCOPY UPPER GI WITH AIR CLINICAL INFORMATION: Dysphagia COMPARISON: None TECHNIQUE: Fluoroscopic air contrast upper GI examination was performed utilizing standard techniques with thin and thick barium and effervescent granules. Numerous spot images were obtained. FINDINGS: Lateral cine images of the oropharynx and hypopharynx demonstrate normal swallow mechanism with normal epiglottic inversion and soft palate elevation. No tracheal penetration, glottic or subglottic aspiration identified. No nasopharyngeal reflux present. Hypopharyngeal structures appear normal without evidence of mass or diverticulum. There was no significant cricopharyngeal achalasia. Dual and single contrast images of the esophagus demonstrate normal caliber, contour, and mucosal pattern. No evidence of stricture, mass, or ulcerations identified. Esophageal peristalsis is mildly disorganized. A small type I hiatal hernia is present. Significant gastroesophageal reflux is seen up to the level of the thoracic inlet. Dual contrast and single contrast images of the stomach demonstrated a normal contour. The gastric rugal folds have a thickened appearance, suggestive of gastritis. There are multiple areas of contrast pooling along the greater curvature of the stomach, suggestive of mucosal ulcerations. No masses are seen. Contrast freely passed into the gastric antrum and duodenal bulb without delay. Single and air-contrast images of the duodenal bulb demonstrate no abnormality. The duodenal sweep has a normal appearance, course, and mucosal fold appearance. The imaged proximal jejunum has a normal fold pattern and caliber. FLUOROSCOPY TIME: 3 minutes 6 seconds Number of Spot Images: 7 Number of Cine: 13 DOSE AREA PRODUCT: 1689 uGy-m2 (microgray-meter squared) FL/FL barium swallow IMPRESSION: 1. Mild esophageal dysmotility. 2. Small type I hiatal hernia with significant gastroesophageal reflux. 3. Thickened appearance the gastric rugal folds. In addition there are multiple focal areas of contrast pooling along the greater curvature of the stomach These findings are suggestive of erosive gastritis. Recommend correlation with EGD. This procedure was performed by Mike Hamilton PA-C, and supervised by Dr. Llanos Electronically signed by: Bruce Llanos MD 05/14/2024 04:47 PM [facility] [place]
--- OUTSIDE RECORDS SUMMARY | 2024-05-13 09:14 | XMS_ITS | Clinical Summary ---
Author Organization [facility] ity Address [address] [place] [address] Care Team Providers Care Electrician Third Name Role Phone Unavailable Primary Care Provider Unavailabl e Social History Tobacco Use Types Packs/Day Years Used Date Smoking Tobacco: Never Assessed Comments Unknown Sex and Gender Information Value Date Recorded Sex Assigned at Not on file Legal Sex Female 3:42 AM EST Gender Identity Not on file Sexual Orientation Not on file Plan of Treatment Health Maintenance Due Date Last Done Comments Breast Cancer Screening 1960 DTaP,Tdap,and Td Vaccines (1 - Tdap) 07/24/1979 Cervical Cancer Screening: P ap Smear 1981 Pneumococcal Vaccine: 50+ Ye ars (1 of 1 - PCV) 2010 Zoster Vaccines (1 of 2) 2010 Colorectal Cancer Screening: Colonoscopy 02/20/2022 Depression Screening 02/20/2022 HIV Screening 02/20/2022 Hepatitis C Screening 02/20/2022 Social Influencers of Health Screening 02/20/2022 COVID-19 Vaccine ( - 2023-2 5 season) 2023 Influenza Vaccine (#1) 2023 RSV Immunization Patients 60 + Years Old (1 - 1-dose 75+ series) 07/24/2035 HIB Vaccines Aged Out No longer eligi ble based on patient's age to complete this topic HPV Vaccines Aged Out No longer eligi ble based on patient's age to complete this topic Hepatitis A Vaccines Aged Out No long er eligible based on patient's age to complete this topic Hepatitis B Vaccines Aged Out No long er eligible based on patient's age to complete this topic IPV Vaccines Aged Out No longer eligi ble based on patient's age to complete this topic MMR Vaccines Aged Out No longer eligi ble based on patient's age to complete this topic Meningococcal ACWY Vaccine Aged Out N o longer eligible based on patient's age to complete this topic Meningococcal B Vacine Aged Out No lo nger eligible based on patient's age to complete this topic Pneumococcal Vaccine: Pediat rics (0 to 5 Years) and At-Risk Patients (6 to 64 Years) Aged Out No longer eligible b ased on patient's age to complete this topic RSV Immunization Patients Un dimple 20 months Aged Out No longer eligible b ased on patient's age to complete this topic Varicella Vaccines Aged Out No longer eligible based on patient's age to complete this topic
== END 2024-05-13 08:45 | disposition home or self-care (01) ==
LOC: HO.XRAY 08:44
PROVIDERS: PCP Family Medicine; Visit Provider Family Medicine
DX: R13.14 Dysphagia, pharyngoesophageal phase (principal)
CPT/HCPCS: 74220

== ENCOUNTER → 2024-05-13 08:45 | Outpatient (BNV) | payer OTHER, SELFPAY | PROVIDERS: PCP Family Medicine; Visit Provider Physician Assistant Surgical | DX: R13.10 Dysphagia, unspecified (principal) | CPT/HCPCS: 74246; 74248 ==

== ENCOUNTER 2024-05-15 11:14 | Outpatient (REF) | payer OTHER, SELFPAY ==
--- NOTE | ~2024-05-15 | XR_ITS ---
EXAMINATION: XR LUMBAR SPINE 2-3 VIEWS HISTORY: LOW BACK PAIN COMPARISON: Comparison is made with the prior examination dated 09/02/2015. FINDINGS: AP, lateral, and coned down views of the lumbar spine are submitted. The AP view is somewhat limited by oral contrast material in the colon from recent barium swallow. Osseous mineralization is normal. Five nonrib-bearing lumbar vertebral bodies are identified, maintaining normal height and alignment without evidence of fracture or spondylolisthesis. There is mild degenerative disc disease with disc space narrowing and anterior spurring. The posterior elements are intact. There is calcification of the abdominal aorta. XR/XR lumbar spine 2-3V IMPRESSION: Mild degenerative changes as described. Electronically signed by: Gabriel Moses MD 05/15/2024 12:04 PM [facility]
--- OUTSIDE RECORDS SUMMARY | 2024-05-15 14:08 | XMS_ITS | Clinical Summary ---
Author Organization [facility] ity Address [address] [place] [address] Care Team Providers Care Head Mva Reactor Operator Name Role Phone Unavailable Primary Care Provider [...]
== END 2024-05-15 11:15 | disposition home or self-care (01) ==
LOC: HO.XRAY 11:14
PROVIDERS: PCP Family Medicine; Visit Provider Family Medicine
DX: M54.50 Low back pain, unspecified (principal)
CPT/HCPCS: 72100

== ENCOUNTER → 2024-05-15 11:23 | Outpatient (BNV) | payer OTHER, SELFPAY | PROVIDERS: PCP Family Medicine; Visit Provider Radiology Diagnostic Radiology | DX: M54.50 Low back pain, unspecified (principal) | CPT/HCPCS: 72100 ==

== ENCOUNTER 2024-05-17 07:26 | Outpatient (AMB) | payer OTHER, SELFPAY ==
--- OUTSIDE RECORDS SUMMARY | 2024-05-17 07:28 | XMS_ITS | Clinical Summary ---
Author Organization [facility] ity Address [address] [place] [address] Care Team Providers Care Electrophysiology Tech Name Role Phone Unavailable Primary Care Provider [...]
--- NOTE | 2024-05-17 07:30 | MHC.OFFVIS ---
Vital Signs 05/17/24 07:39 Height 4 ft 10 in Weight 142 lb 6.698 oz BMI 29.8 BP 120/64 Blood Pressure Location Lt brachial Position Sitting Pulse 78 Pulse Source Pulse Oximeter Pulse Oximetry (%) 98 Oxygen Delivery Method Room Air Intake Visit Reasons: RA Intake Note: Patient presents for RA. Allergies adhesive [ADHESIVE] Allergy (Intermediate, Verified 05/17/24 07:37) REDNESS levofloxacin [From LEVAQUIN] Allergy (Intermediate, Verified 05/17/24 07:37) ITCHINESS Sulfa (Sulfonamide Antibiotics) Allergy (Intermediate, Verified 05/17/24 07:37) Itchiness and Swelling sulfamethoxazole [From BACTRIM] Allergy (Intermediate, Verified 05/17/24 07:37) PHOTOSENSITIVITY/RASH trimethoprim [From BACTRIM] Allergy (Intermediate, Verified 05/17/24 07:37) PHOTOSENSITIVITY/RASH Medication List - Last Reconciled 05/17/24 by Janae Knox MD acebutolol 200 mg PO DAILY albuterol sulfate 90 mcg/actuation inhalation alendronate 70 mg PO QWEEK aspirin (Adult Aspirin Regimen) 81 mg PO DAILY atorvastatin 20 mg PO BEDTIME B-complex with vitamin C 1 cap PO DAILY bupropion HCl SR 150 mg PO DAILY carisoprodol 350 mg PO BID PRN cetirizine (Zyrtec) 10 mg PO DAILY PRN cholecalciferol (vitamin D3) 25 mcg PO DAILY coenzyme Q10 (CoQ-10) 100 mg PO DAILY famotidine 40 mg PO DAILY gabapentin 600 mg PO BEDTIME Kevzara (sarilumab) 200 mg (1.14 mL) subcut Q2W NS magnesium 250 mg PO DAILY prednisone 20 mg PO DAILY HPI Comments Details: Patient is a 63-year-old female current everyday smoker with hyperlipidemia, osteoporosis and seropositive rheumatoid arthritis here today for follow up Interval History: Last seen with Dr. Fleming 01/02/2024. At that time she reported she was doing reasonably well overall with his swelling. Today, Patient continues to do well on the Kevzara Has been having back pain and is currently undergoing work with her PCP. L spine XR showed degenerative changes Also complaining of incomplete bladder emptying Currently on 20 mg of prednisolone daily for 7 days Rheumatologic History: Seropositive rheumatoid arthritis +RF+CCP, ?pericarditis dx 2014 MTX & HCQ started 2014 Enbrel added 2016 & was working relatively but couldn't continue due to insurance issues, switched to Humira which was ineffective Kevzara started 2018 effective HCQ DC in 2020 (didn't feel a difference when she stopped it when taking Azithromycin for an infection) MTX DC 02/09 due to transaminitis Initial history: This is a 61-year-old female with seropositive RA presents our evaluation. Her previous marketing operations coordinator left the practice. Patient states she feels relatively well overall. She is having triggering of her left thumb and left index fingers. 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 She is tolerating methotrexate, Kevzara and folic acid. Osteoporosis (Bone Dexa Femoral T-score: -2.6 on 06/14/22) alendronate 04/2023 Current Rheumatology Medication(s): Kevzara 200 mg every 2 weeks SC Alendronate 70 mg every week Vitamin D3 daily supplement [facility] Medical History Seropositive rheumatoid arthritis COPD (chronic obstructive pulmonary disease) Nicotine dependence, cigarettes, uncomplicated Osteoporosis Sessile serrated polyp of colon GERD (gastroesophageal reflux disease) Thyroid nodule Liver cyst Back pain History of pneumonia Pericardial effusion History of tachycardia Family history of malignant hyperthermia Surgical History History of dilation and curettage History of colonoscopy History of section Family History Mother HTN (hypertension) Sister Heart disease Social History Household Members: Spouse and Children Housing: House Alcohol intake: current Alcohol intake frequency: a few times a month Alcohol type: wine and hard liquor Patient Tobacco Use Status: Current everyday Tobacco user Tobacco use type: Cigarette Cigarettes Per Day: 5 Years Smoked: onset 13yo, 1ppd x 49yrs, now 1/4ppd - 40pyh Advance Directives Date on File: 01/07/20 service: No Current occupational status: employed Current occupational exposures/hazards: No Cognitive needs: No Hearing needs: No Vision needs: Yes Review of Systems Const Details: Review of Systems Constitutional: Denies fever, chills, weight loss ENT: Denies vision changes, eye pain or eye redness, dental caries, dry mouth GI: Denies nausea, vomiting, diarrhea, abdominal pain, change in BM Pulm: Denies SOB, PEREZ, hemoptysis, wheezing Cards: Denies chest pain, palpitations Skin: Denies Raynaud's, rash, nail changes, photosensitivity, DIESEL DINKEY ENGINEER: Denies headaches, weakness, paresthesias, recurrent falls MSK: as per HPI All other systems reviewed and are unremarkable except noted above Physical Exam Vital Signs: BMI result Body Mass Index 29.8 Vital signs reviewed Physical Examination CONSTITUITIONAL Patient alert and cooperative. Well appearing and in no apparent painful distress HEENT Conjunctiva and sclera clear. ?Pupils equal round and reactive to light. ?No lymphadenopathy. ? CHEST/RESPIRATORY SYSTEM Normal respiratory effort and able to speak in complete sentences. ?Clear to auscultation bilaterally. ?No crackles, rales, rhonchi, wheezes heard. CARDIAC SYSTEM Regular rate and rhythm. ?S1 and S2 heard no murmurs. ?Radial pulses intact bilaterally MSK Hands: ?Good enrollment management vice president strength bilaterally. No deformities noted. ?No synovitis noted to the MCPs, PIPs or DIPs. ?Heberden's nodes noted Wrists: ?Full range of motion at the wrists without pain. ?No tenderness to palpation or synovitis noted to the wrists. Elbows: Full range of motion without pain. No tenderness, weakness, swelling, increased warmth or erythema. Shoulders: Full range of motion without pain. No tenderness, weakness, swelling, increased warmth or erythema. Hips: Full range of motion without pain. Hip bursa: No tenderness to palpation Knees: ?Full range of motion. ?No tenderness, swelling, increased warmth or erythema.? Bilateral crepitations felt Ankles: Full range of motion. ?No tenderness, swelling, increased warmth or erythema.? Feet: ?Negative squeeze test. ?No tenderness to palpation or swelling of the MTPs. Tender points:?No tenderness to palpation of the bilateral trapezius, supraspinatus, greater trochanters, anterior costochondral junctions, bilateral gluteal areas, bilateral suboccipital muscle insertions SKIN Skin intact without rashes. Results Reviewed Results Reviewed: Laboratory Tests 06/01/22 07/11/23 02/14/24 15:55 08:55 08:25 WBC 10.0 RBC 4.33 Hgb 14.0 Hct 42.0 ESR 45 H Sodium 144 Potassium 4.9 Chloride 107 Carbon Dioxide 27 BUN 17 H Creatinine 0.93 AST 26 ALT 30 Alkaline Phosphatase 68 C-Reactive Protein 1.03 H Hepatitis A IgM Ab Nonreactive Hep Bs Antigen Negative Hep Bs Antibody REACTIVE Hep B Core Total Ab Nonreactive Hepatitis C Ab (EIA) Nonreactive TB Test (T-Spot) Com Negative DEXA 06/14/22 FINDINGS: AP SPINE L1-L4: BMD 0.971 g/cm2, Z-score -0.2, T-score -1.7, osteopenia. LEFT FEMUR, NECK: BMD 0.675 g/cm2, Z-score -1.2, T-score -2.6, osteoporosis. LEFT FEMUR, TOTAL: BMD 0.790 g/cm2, Z-score -0.6, T-score -1.7, osteopenia. Assessment & Plan Assessment & Plan (1) Seropositive rheumatoid arthritis: Comment: +RF+CCP, ?pericarditis dx 2014 MTX & HCQ started 2014 Enbrel added 2016 & was working relatively but couldn't continue due to insurance issues, switched to Humira which was ineffective Kevzara started 2018 effective HCQ DC in 2020 (didn't feel a difference when she stopped it when taking Azithromycin for an infection) MTX DC 02/09 due to transaminitis Code(s): M05.9 - Rheumatoid arthritis with rheumatoid factor, unspecified Category: Medical Plan: #Seropositive RA Patient is a 63-year-old female current everyday smoker here today to follow up for seropositive rheumatoid arthritis. Joints are currently in remission on Kevzara Plan - Kevzara 200mg SC every 2 weeks - Labs today: CBC, CMP, ESR, CRP, hepatitis panel, T spot, lipid panel - RTC 4 months - Labs before visit: CBC, CMP, ESR, CRP (2) Osteoporosis: Comment: DEXA 05/2022: AP spine -1.7, Left femur neck -2.6, Left femur total -1.7 alendronate 04/2023 Code(s): M81.0 - Age-related osteoporosis without current pathological fracture Category: Medical Qualifiers: Osteoporosis type: age-related Presence of current pathological fracture: without current pathological fracture Qualified Code(s): M81.0 - Age-related osteoporosis without current pathological fracture Plan: #Osteoporosis Patient without fall or fractures. Tolerating alendronate weekly. Vitamin-D at last check was at goal. Due for a DEXA this year Plan - Continue alendronate - Encouraged weight bearing exercises - Vitamin D supplementation to keep Vit D > 35 - DEXA scan ordered (3) Encounter for monitoring tocilizumab therapy: Code(s): Z51.81 - Encounter for therapeutic drug level monitoring; Z79.620 - [facility] (current) use of immunosuppressive biologic Category: Medical Plan: #Long-term Use of Tocilizumab Discussed the risks and benefits of tocilizumab with the management of this patient's rheumatic condition. ? Benefits include decreased pain, improved mortality, improved quality of life Risks include LFT abnormalities, elevated triglycerides, GI perforations Contraindicated in a patient with history of diverticulitis Monitoring: ?CBC, CMP, triglycerides (4) Encounter for monitoring alendronate therapy: Code(s): Z51.81 - Encounter for therapeutic drug level monitoring; Z79.83 - intermediate project manager (current) use of bisphosphonates Category: Medical Plan: #Long-term Use of Bisphosphonates Risks and benefits of bisphosphonates in the management of osteoporosis Benefits include improved bone density, decreased fracture risk Risks include atypical femoral fractures, GI upset, esophageal strictures Contraindicated in patients with a creatinine clearance < 30 to 35 ml/min Keep vitamin-D at least 35 ng/mL Plan I spent 30 minutes reviewing the record and labs, taking a history, examining the patient, discussing the treatment plan and documenting in the medical record Orders: Orders Thyroid Stimulating Hormone Today E55.9 - Vitamin D deficiency, unspecified, M05.9 - Rheumatoid arthritis with rheumatoid factor, unspecified Vitamin D 25-OH (D2 and D3) Today E55.9 - Vitamin D deficiency, unspecified, M05.9 - Rheumatoid arthritis with rheumatoid factor, unspecified Complete Blood Count Auto Diff Today M05.9 - Rheumatoid arthritis with rheumatoid factor, unspecified Comprehensive Met. Panel Today M05.9 - Rheumatoid arthritis with rheumatoid factor, unspecified Erythrocyte Sedimentation Rate Today M05.9 - Rheumatoid arthritis with rheumatoid factor, unspecified XR DEXA axial skeleton Today M81.0 - Age-related osteoporosis without current pathological fracture Complete Blood Count Auto Diff 4 Months E55.9 - Vitamin D deficiency, unspecified, M05.9 - Rheumatoid arthritis with rheumatoid factor, unspecified C Reactive Protein 4 Months E55.9 - Vitamin D deficiency, unspecified, M05.9 - Rheumatoid arthritis with rheumatoid factor, unspecified Comprehensive Met. Panel 4 Months E55.9 - Vitamin D deficiency, unspecified, M05.9 - Rheumatoid arthritis with rheumatoid factor, unspecified Erythrocyte Sedimentation Rate 4 Months E55.9 - Vitamin D deficiency, unspecified, M05.9 - Rheumatoid arthritis with rheumatoid factor, unspecified Hepatitis A,B,C Profile Today E55.9 - Vitamin D deficiency, unspecified, M05.9 - Rheumatoid arthritis with rheumatoid factor, unspecified Lipid Panel 4 Months E55.9 - Vitamin D deficiency, unspecified, M05.9 - Rheumatoid arthritis with rheumatoid factor, unspecified T Spot TB Today E55.9 - Vitamin D deficiency, unspecified, M05.9 - Rheumatoid arthritis with rheumatoid factor, unspecified C Reactive Protein Today M05.9 - Rheumatoid arthritis with rheumatoid factor, unspecified Coding Level of Care Code Est Pt Level 4 (90821) Complex EM visit Add On G2211 Diagnoses Seropositive rheumatoid arthritis M05.9 Age-related osteoporosis without current pathological fracture M81.0 Osteoporosis type: age-related Presence of current pathological fracture: without current pathological fracture Encounter for monitoring tocilizumab therapy Z51.81; Z79.620 Encounter for monitoring alendronate therapy Z51.81; Z79.83
[2024-05-17 07:39] VITALS: BP 120/64; PULSE 78; O2SAT 98; BMI 29.8
== END 2024-05-17 07:59 | disposition home or self-care (01) ==
PROVIDERS: PCP Family Medicine; Visit Provider Student in an Organized Health Care Education/Training Program
DX: M05.79 Rheumatoid arthritis with rheumatoid factor of multiple sites without organ or systems involvement (principal); M81.0 Age-related osteoporosis without current pathological fracture; Z51.81 Encounter for therapeutic drug level monitoring; Z79.620 Long term (current) use of immunosuppressive biologic; Z79.83 Long term (current) use of bisphosphonates
CPT/HCPCS: 99214; G2211

== ENCOUNTER 2024-05-17 07:26 | Outpatient (REF) | payer OTHER, SELFPAY ==
--- OUTSIDE RECORDS SUMMARY | 2024-05-17 08:17 | XMS_ITS | Clinical Summary ---
Author Organization [facility] ity Address [address] [place] [address] Care Team Providers Care Web Development Manager Name Role Phone Unavailable Primary Care Provider [...]
[2024-05-17 08:25] LABS: MANUAL DIFF FLAG NO
[2024-05-17 09:18] LABS: Basophils Percent Auto 0.5 % (0-2); Eosinophils Absolute Auto 0.2 X10*3/uL (0.0-0.4); Eosinophils Percent Auto 2.5 % (0-4); Hematocrit 39.6 % (37.0-47.0); Hemoglobin 13.7 g/dl (12.0-16.0); Imm Gran Abs Auto 0.03 X10*3/uL (0.00-0.03); Imm Gran Pct Auto 0.3 % (0.0-0.4); Lymphocytes Absolute Auto 3.1 X10*3/uL (1.2-4.9); Lymphocytes Percent Auto 35.4 % (20-40); Mean Corpuscular HGB Conc 34.6 g/dl (31.0-35.0); Mean Corpuscular Hemoglobin 32.7 pg (27.0-33.0); Mean Corpuscular Volume 94.5 fL (80.0-98.0); Mean Platelet Volume 9.2 fL (9.4-12.3); Monocytes Absolute Auto 0.7 X10*3/uL (0.1-1.2); Monocytes Percent Auto 7.7 % (2-11); Neutrophils Absolute Auto 4.7 x10*3/uL (2.0-8.3); Neutrophils Percent Auto 53.6 % (45-73); Platelet Count 228 X10*3/uL (160-400); Red Blood Count 4.19 X10*6/uL (4.20-5.50); Red Cell Distribution Width 12.7 % (11.0-16.0); White Blood Count 8.7 X10*3/uL (4.8-10.8)
[2024-05-17 09:51] LABS: Alanine Aminotransferase 46 U/L (0-31); Albumin Level 4.2 g/dL (3.5-5.0); Alkaline Phosphatase 50 U/L (39-117); Anion Gap 12 (12-20); Aspartate Amino Transferase 26 U/L (5-31); Bilirubin Total 0.4 mg/dL (0.0-1.0); Blood Urea Nitrogen 17 mg/dL (9-16); C Reactive Protein < 0.10 mg/dL (< or = 0.50); Calcium 9.5 mg/dL (8.4-10.2); Carbon Dioxide 26 mmol/L (22-29); Chloride 109 mmol/L (96-108); Estimated Glomerular Filt Rate > 60; Glucose Random 95 mg/dL (60-115); Sodium 143 mmol/L (135-145); Total Protein 7.1 g/dL (6.5-8.0)
[2024-05-17 09:55] LABS: Erythrocyte Sedimentation Rate 5 MM/HR (0-20)
[2024-05-17 09:59] LABS: Thyroid Stimulating Hormone 3.13 uIU/mL (0.32-4.0)
[2024-05-17 10:07] LABS: HBc Num1 0.09 S/CO (0.00-0.79); HBsAGNum1 0.29 S/CO (0.00-0.99); Hepatitis A Antibody IgM 0.19 Index (0-0.79); Hepatitis B Core Antibody Nonreactive (Nonreactive); Hepatitis B Surface Antigen Negative (Negative); ~Hepatitis A Antibody IgM Nonreactive (Nonreactive); ~Hepatitis B Surface Antibody REACTIVE (Nonreactive); ~Hepatitis C Antibody Nonreactive (Nonreactive)
[2024-05-19 23:43] LABS: TS Negative Control Passed; TS Panel A 0; TS Panel B 0; TS Positive Control Passed; TSpotTB Negative (Negative)
[2024-05-22 17:04] LABS: Vitamin D 25-OH, D2 <4 ng/mL; Vitamin D 25-OH, D3 43 ng/mL; Vitamin D 25-OH, Total 43 ng/mL (30-100)
== END 2024-05-17 07:27 | disposition home or self-care (01) ==
LOC: HO.LAB 07:26
PROVIDERS: PCP Family Medicine; Visit Provider Student in an Organized Health Care Education/Training Program
DX: M05.9 Rheumatoid arthritis with rheumatoid factor, unspecified (principal); E55.9 Vitamin D deficiency, unspecified; M81.0 Age-related osteoporosis without current pathological fracture; Z51.81 Encounter for therapeutic drug level monitoring; Z79.620 Long term (current) use of immunosuppressive biologic; Z79.83 Long term (current) use of bisphosphonates
CPT/HCPCS: 36415; 80053; 82306; 84443; 85025; 85652; 86140; 86481; 86704; 86706; 86709; 86803; 87340; 99212

== ENCOUNTER 2024-06-03 08:41 | Outpatient (AMB) | payer OTHER, SELFPAY ==
--- NOTE | 2024-06-03 08:44 | MHC.OFFVIS ---
Vital Signs 06/03/24 08:46 Height 4 ft 10 in Weight 145 lb 1.027 oz BMI 30.3 BP 126/62 Blood Pressure Location Rt brachial Position Sitting Pulse 84 Pulse Source Pulse Oximeter Pulse Oximetry (%) 98 Oxygen Delivery Method Room Air Intake Visit Reasons: Erosion, Gerd Intake Note: ESTABLISHED PATIENT for Eval for GERD. Pt originally scheduled for 1 YR Transaminitis FUV. Required early appt. Chief Complaint; C/O worsening / persistent reflux, dysphagia + burning reported. Sx present worse at night. Doing better since starting PPI. Last colo 2022, PCP recommending EGD due to abnormal BA FL. 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: No Accompanied by: Self / Same As Patient Allergies adhesive [ADHESIVE] Allergy (Intermediate, Verified 06/03/24 08:46) REDNESS levofloxacin [From LEVAQUIN] Allergy (Intermediate, Verified 06/03/24 08:46) ITCHINESS Sulfa (Sulfonamide Antibiotics) Allergy (Intermediate, Verified 06/03/24 08:46) Itchiness and Swelling sulfamethoxazole [From BACTRIM] Allergy (Intermediate, Verified 06/03/24 08:46) PHOTOSENSITIVITY/RASH trimethoprim [From BACTRIM] Allergy (Intermediate, Verified 06/03/24 08:46) PHOTOSENSITIVITY/RASH HPI HPI Erosion, Gerd: Details: LAST VISIT: Transaminitis Liver disease Plan Nonalcoholic fatty liver. Patient encouraged to stay away from food high in fat. Patient will try more protein, less carbs, low-sodium diet. 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 She will follow-up in our office in 6 months, sooner on as needed basis. She is agreeable to this plan and verbalizes understanding of instructions. She was given the opportunity to ask questions and all questions answered. TODAY'S VISIT: Patient is here today for requested appointment. Patient has been experiencing acid reflux and dysphagia, sent for barium swallow by PCP and was shown to have mild esophageal dysmotility and possible gastritis. Patient does report epigastric pain postprandially. Started on omeprazole by PCP and reports that her symptoms improved. Patient will be sent for upper endoscopy. Not due for colonoscopy till next year. Patient reports no other symptoms. Denies any melena, hematochezia, unintentional weight loss or ribbon like stools. Patient reports that she is moving her bowels without any issues. [facility] Medical History Seropositive rheumatoid arthritis COPD (chronic obstructive pulmonary disease) Nicotine dependence, cigarettes, uncomplicated Osteoporosis Sessile serrated polyp of colon GERD (gastroesophageal reflux disease) Thyroid nodule Liver cyst Back pain History of pneumonia Pericardial effusion History of tachycardia Family history of malignant hyperthermia Surgical History History of dilation and curettage History of colonoscopy History of section Family History Mother HTN (hypertension) Sister Heart disease Social History Household Members: Spouse and Children Housing: House Alcohol intake: current Alcohol intake frequency: a few times a month Alcohol type: wine and hard liquor Patient Tobacco Use Status: Current everyday Tobacco user Tobacco use type: Cigarette Cigarettes Per Day: 5 Years Smoked: onset 13yo, 1ppd x 49yrs, now 1/4ppd - 40pyh Advance Directives Date on File: 01/07/20 service: No Current occupational status: employed Current occupational exposures/hazards: No Cognitive needs: No Hearing needs: No Vision needs: Yes Review of Systems Const Denies weight gain and Denies weight loss ENT Reports no additional complaints, Denies dysphagia and Denies odynophagia Card Reports no additional complaints Resp Reports no additional complaints GI Denies abdominal pain, Denies belching, Denies melena, Denies bloating, Denies change in bowel habits, Denies dysphagia, Denies excessive flatus, Denies dyspepsia, Denies heartburn, Denies diarrhea, Denies loose stools, Denies nausea, Denies odynophagia and Denies vomiting Musc Reports no additional complaints Neuro Reports no additional complaints Psych Reports no additional complaints Endo Reports no additional complaints Physical Exam Vital Signs: Last Vital Signs Pulse 84 06/03/24 08:46 BP 126/62 06/03/24 08:46 Pulse Ox 98 06/03/24 08:46 Oxygen Delivery Method Room Air 06/03/24 08:46 BMI result Body Mass Index 30.3 Const General: healthy appearing, no acute distress and well developed Nutritional Appearance: well nourished Orientation/consciousness: patient oriented x3 HEENT Mouth: Normal oral and palatal mucosa present Throat: Yes posterior oropharynx normal, Yes tonsils normal and Yes uvula midline Resp Effort & Inspection: normal respiratory effort, able to speak in complete sentences, no tracheal deviation and symmetric chest movement Auscultation: clear to auscultation bilaterally Cardio Jugular venous distension: no JVD Rate: regular rate Heart sounds: S1 normal heart sound present, S2 normal heart sound present, no gallops and no murmurs GI Inspection: Yes normal to inspection and No distended Palpation (GI): Soft to palpation, not firm, nontender and No hepatosplenomegaly present Auscultation: normal bowel sounds General: Yes no CVA tenderness Back/Spine/Pelvis Back: no CVA tenderness Skin General skin exam: elasticity normal, turgor normal and dry skin Neuro General: patient oriented x3 Psych Appearance: grossly normal Mental Status: mental status grossly normal Results Reviewed Results Reviewed: BARIUM SWALLOW 05/13/2024 IMPRESSION: 1. Mild esophageal dysmotility. 2. Small type I hiatal hernia with significant gastroesophageal reflux. 3. Thickened appearance the gastric rugal folds. In addition there are multiple focal areas of contrast pooling along the greater curvature of the stomach These findings are suggestive of erosive gastritis. Recommend correlation with EGD. Assessment & Plan Assessment & Plan (1) GERD (gastroesophageal reflux disease): Code(s): K21.9 - Gastro-esophageal reflux disease without esophagitis Qualifiers: Esophagitis presence: esophagitis presence not specified Qualified Code(s): K21.9 - Gastro-esophageal reflux disease without esophagitis Plan Continue omeprazole daily. Avoid dietary triggers and late night snacking. Staying upright for minimum 3 hours after meals discussed with patient. Message sent to surgical schedulers to book upper endoscopy for patient. Patient denies any issues with anesthesia in the past. No history of sleep apnea. Patient is on low-dose aspirin. Patient will be seen after the procedure, sooner on as needed basis. She is agreeable to this plan and verbalizes understanding of instructions. She was given the opportunity to ask questions and all questions answered. Thank you for allowing me to participate in her care Medications: New omeprazole 40 mg PO DAILY 30 caps 3RF Coding Level of Care Code Est Pt Level 3 (80689) Diagnoses Gastroesophageal reflux disease, unspecified whether esophagitis present K21.9 Esophagitis presence: esophagitis presence not specified Time Spent (min) 30 Comment 20 minutes spent with patient and additional 10 minutes spent reviewing her records
[2024-06-03 08:46] VITALS: BP 126/62; PULSE 84; O2SAT 98; BMI 30.3
--- OUTSIDE RECORDS SUMMARY | 2024-06-03 08:59 | XMS_ITS | Clinical Summary ---
Author Organization [facility] ity Address [address] [place] [address] Care Team Providers Care Lens Finisher Name Role Phone Unavailable Primary Care Provider [...]
== END 2024-06-03 09:29 | disposition home or self-care (01) ==
LOC: HO.HGI 08:41
PROVIDERS: PCP Family Medicine; Visit Provider Nurse Practitioner Family
DX: K21.9 Gastro-esophageal reflux disease without esophagitis (principal)
CPT/HCPCS: 99213

== ENCOUNTER → 2024-06-03 08:41 | Outpatient (BNVA) | payer OTHER, SELFPAY | PROVIDERS: PCP Family Medicine; Visit Provider Nurse Practitioner Family | DX: K21.9 Gastro-esophageal reflux disease without esophagitis (principal) | CPT/HCPCS: 99212 ==

== ENCOUNTER 2024-07-04 13:50 | Outpatient (REF) | payer OTHER, SELFPAY ==
--- NOTE | ~2024-07-04 | MM_ITS ---
EXAMINATION: DXA BONE DENSITY AXIAL HISTORY: M81.0 - Age-related osteoporosis without current pathological fracture TECHNIQUE: [employer] Dual energy absorptiometry (DEXA) of the lumbar spine, total left hip, and femoral neck was performed. COMPARISON: Comparison is made with the prior examination dated 06/14/2022. FINDINGS: The bone mineral density of the lumbar spine is 0.910 with a T-score of -2.3, and a Z-score of -0.6. This is indicative of osteopenia. This represents a BMD change of -6.3% compared to the prior exam. This is statistically significant. The bone mineral density of the left total hip is 0.802 with a T-score of -1.6, and a Z-score of -0.4. This is indicative of osteopenia. This represents a BMD change of 1.5% compared to the prior exam. This is not statistically significant. The bone mineral density of the left femoral neck is 0.661 with a T-score of -2.7, and a Z-score of -1.2. This is indicative of osteoporosis. This represents a BMD change of -2.1% compared to the prior exam. MM/XR DEXA axial skeleton IMPRESSION: Based on bone mineral density, and according to World Health Organization (WHO) criteria, the diagnosis is consistent with osteoporosis. All bone density values are in grams per centimeter squared (g/cm2). Statistically, 68% of repeat scans fall within 1 SD (+/- 0.010 g/cm2 for AP spine L1-L4) and 1 SD (+/- 0.012 g/cm2 for femur total) FRAX is a trademark of the [employer]'s [place] for Metabolic Bone Disease, a World Health Organization (WHO) Collaborating Center. Electronically signed by: Gabriel Moses MD 07/04/2024 02:42 PM EDT
--- OUTSIDE RECORDS SUMMARY | 2024-07-04 16:55 | XMS_ITS | Clinical Summary ---
Author Organization [facility] [address] ity Address [address] [place] [address] Care Team Providers Care Director Hardware Name Role Phone Unavailable Primary Care Provider [...] - 2023-2 5 season) 2023 Influenza Vaccine (Season Ended) 2024 RSV Immunization Adult Patie nts (1 - 1-dose 75+ series) 07/24/2035 HIB [...] age to complete this topic Meningococcal B Vaccine Aged Out No l onger eligible based on patient's age to complete [...]
== END 2024-07-04 13:51 | disposition home or self-care (01) ==
LOC: HO.MAMMO 13:50
PROVIDERS: PCP Family Medicine; Visit Provider Student in an Organized Health Care Education/Training Program
DX: Z12.31 Encounter for screening mammogram for malignant neoplasm of breast (principal); M81.0 Age-related osteoporosis without current pathological fracture
CPT/HCPCS: 77063; 77067; 77080

== ENCOUNTER → 2024-07-04 14:00 | Outpatient (BNV) | payer OTHER, SELFPAY | PROVIDERS: PCP Family Medicine; Visit Provider Radiology Diagnostic Radiology | DX: E28.39 Other primary ovarian failure (principal) | CPT/HCPCS: 77080 ==

== ENCOUNTER 2024-07-25 06:30 | Day surgery (SDC) | payer OTHER, SELFPAY ==
[2024-07-23 08:44] VITALS: BMI 30.3
--- NOTE | 2024-07-24 08:20 | P.CONAN_ITS ---
Documented by User: Barbara Lindsey NP 07/24/24 08:26 HPI - Anesthesia Eval Consult details Narrative: 64yo F for Upper Endoscopy *Family hx of MH in daughter* PMFSH Active Problems Active Problems: All Active Problems Encounter for monitoring alendronate therapy (Acute) Encounter for monitoring tocilizumab therapy (Acute) Tobacco use disorder (Acute) Left wrist pain (Acute) Transaminitis (Acute) Viral upper respiratory illness (Acute) Immunization counseling (Acute) Bacterial conjunctivitis of left eye (Acute) Rash (Acute) Trochanteric bursitis of right hip (Acute) Tarsal tunnel syndrome of both lower extremities (Acute) Menopausal state (Acute) Trigger finger of left hand (Acute) Tendinopathy of right rotator cuff (Acute) Seropositive rheumatoid arthritis (Acute) Osteoporosis (Acute) Nicotine dependence, cigarettes, uncomplicated (Acute) Sessile serrated polyp of colon (Acute) Past Medical History Medical History (Updated 07/23/24 @ 08:45 by Angelita Salmeron RN) Rheumatoid arthritis Nicotine dependence, cigarettes, uncomplicated Osteoporosis Sessile serrated polyp of colon Family history of malignant hyperthermia Back pain Thyroid nodule GERD (gastroesophageal reflux disease) Liver cyst History of pneumonia COPD (chronic obstructive pulmonary disease) Pericardial effusion History of tachycardia Seropositive rheumatoid arthritis Family History Family History Mother HTN (hypertension) Sister Heart disease Family history of problems with anesthesia: No Surgical History Surgical History History of dilation and curettage History of colonoscopy History of section History of Problems with Anesthesia: No Social History Social History Household Members: Spouse and Children Housing: House Alcohol intake: current Alcohol intake frequency: a few times a month Alcohol type: wine and hard liquor Patient Tobacco Use Status: Current everyday Tobacco user Tobacco use type: Cigarette Cigarettes Per Day: 7 Years Smoked: onset 13yo, 1ppd x 49yrs, now 1/4ppd - 40pyh Use of substances other than those prescribed or required for medical reasons: No Advance Directives: No Advance Directives Information Provided: Yes Advance Directives Date on File: 01/07/20 service: No Current occupational status: employed Current occupational exposures/hazards: No Cognitive needs: No Hearing needs: No Vision needs: Yes Meds Allergies Allergy/AdvReac Type Severity Reaction Status Date / Time adhesive [ADHESIVE] Allergy Intermediate REDNESS Verified 07/25/24 06:47 levofloxacin [From LEVAQUIN] Allergy Intermediate ITCHINESS Verified 07/25/24 06 :47 Sulfa (Sulfonamide Allergy Intermediate Itchiness Verified 07/25/24 06:47 Antibiotics) and Swelling sulfamethoxazole Allergy Intermediate PHOTOSENSIT Verified 07/25/24 06:47 [From BACTRIM] IVITY/RASH trimethoprim [From BACTRIM] Allergy Intermediate PHOTOSENSIT Verified 07/25/24 06:47 IVITY/RASH Home Medications ?Medication ?Instructions ?Recorded ?Confirmed ?Last Taken ?Type acebutolol 200 mg capsule 200 mg PO DAILY 01/07/20 07/25/24 Unknown History aspirin 81 mg tablet,delayed 81 mg PO DAILY 01/07/20 07/25/24 Unknown History release (Adult Aspirin Regimen) atorvastatin 20 mg tablet 20 mg PO BEDTIME 01/07/20 07/25/24 Unknown History coenzyme Q10 100 mg capsule 100 mg PO DAILY 01/07/20 07/25/24 Unknown History (CoQ-10) famotidine 40 mg tablet 40 mg PO DAILY PRN reflux 01/07/20 07/25/24 Unknown History magnesium 250 mg tablet 250 mg PO DAILY 01/07/20 07/25/24 Unknown History albuterol sulfate 90 mcg/actuation 2 puff inhalation Q4H PRN 05/27/22 07/25/24 Unknown History aerosol inhaler Shortness Of Breath Or Wheezing bupropion HCl 150 mg tablet,12 hr 150 mg PO DAILY 06/01/22 07/25/24 Unknown History sustained-release cetirizine 10 mg capsule (Zyrtec) 10 mg PO DAILY PRN Allergy Symptoms 06/01/22 07/25/24 Unknown History carisoprodol 350 mg tablet 350 mg PO BID PRN Muscle Spasm 02/06/23 07/25/24 Unknown History B-complex with vitamin C 1 cap PO DAILY 07/07/23 07/25/24 Unknown History cholecalciferol (vitamin D3) 25 25 mcg PO DAILY 02/26/24 07/25/24 Unknown History mcg (1,000 unit) capsule alcohol swabs (Alcohol Prep Pads) pad topical DIRECTED 06/03/24 Unknown History Exam Height,Weight and Vital Signs: Height 4 ft 10 in Weight 65.771 kg Assessment and Plan Assessment Anesthesia Assessment: Chart Reviewed Final Anesthetic Review Family History of Problems with Anesthesia: No History of Problems with Anesthesia: No Documented by User: Judson Vaughn MD 07/25/24 07:31 [facility] Past Medical History Medical History (Updated 07/23/24 @ 08:45 by Angelita Salmeron RN) Rheumatoid arthritis Nicotine dependence, cigarettes, uncomplicated Osteoporosis Sessile serrated polyp of colon Family history of malignant hyperthermia Back pain Thyroid nodule GERD (gastroesophageal reflux disease) Liver cyst History of pneumonia COPD (chronic obstructive pulmonary disease) Pericardial effusion History of tachycardia Seropositive rheumatoid arthritis Family History Family History Mother HTN (hypertension) Sister Heart disease Surgical History Surgical History History of dilation and curettage History of colonoscopy History of section Social History Social History Household Members: Spouse and Children Housing: House Alcohol intake: current Alcohol intake frequency: a few times a month Alcohol type: wine and hard liquor Patient Tobacco Use Status: Current everyday Tobacco user Tobacco use type: Cigarette Cigarettes Per Day: 7 Years Smoked: onset 13yo, 1ppd x 49yrs, now 1/4ppd - 40pyh Use of substances other than those prescribed or required for medical reasons: No Advance Directives: No Advance Directives Information Provided: Yes Advance Directives Date on File: 01/07/20 service: No Current occupational status: employed Current occupational exposures/hazards: No Cognitive needs: No Hearing needs: No Vision needs: Yes Meds Allergies Allergy/AdvReac Type Severity Reaction Status Date / Time adhesive [ADHESIVE] Allergy Intermediate REDNESS Verified 07/25/24 06:47 levofloxacin [From LEVAQUIN] Allergy Intermediate ITCHINESS Verified 07/25/24 06:47 Sulfa (Sulfonamide Allergy Intermediate Itchiness Verified 07/25/24 06:47 Antibiotics) and Swelling sulfamethoxazole Allergy Intermediate PHOTOSENSIT Verified 07/25/24 06:47 [From BACTRIM] IVITY/RASH trimethoprim [From BACTRIM] Allergy Intermediate PHOTOSENSIT Verified 07/25/24 06:47 IVITY/RASH Home Medications ?Medication ?Instructions ?Recorded ?Confirmed ?Last Taken ?Type acebutolol 200 mg capsule 200 mg PO DAILY 01/07/20 07/25/24 Unknown History aspirin 81 mg tablet,delayed 81 mg PO DAILY 01/07/20 07/25/24 Unknown History release (Adult Aspirin Regimen) atorvastatin 20 mg tablet 20 mg PO BEDTIME 01/07/20 07/25/24 Unknown History coenzyme Q10 100 mg capsule 100 mg PO DAILY 01/07/20 07/25/24 Unknown History (CoQ-10) famotidine 40 mg tablet 40 mg PO DAILY PRN reflux 01/07/20 07/25/24 Unknown History magnesium 250 mg tablet 250 mg PO DAILY 01/07/20 07/25/24 Unknown History albuterol sulfate 90 mcg/actuation 2 puff inhalation Q4H PRN 05/27/22 07/25/24 Unknown History aerosol inhaler Shortness Of Breath Or Wheezing bupropion HCl 150 mg tablet,12 hr 150 mg PO DAILY 06/01/22 07/25/24 Unknown History sustained-release cetirizine 10 mg capsule (Zyrtec) 10 mg PO DAILY PRN Allergy Symptoms 06/01/22 07/25/24 Unknown History carisoprodol 350 mg tablet 350 mg PO BID PRN Muscle Spasm 02/06/23 07/25/24 Unknown History B-complex with vitamin C 1 cap PO DAILY 07/07/23 07/25/24 Unknown History cholecalciferol (vitamin D3) 25 25 mcg PO DAILY 02/26/24 07/25/24 Unknown History mcg (1,000 unit) capsule alcohol swabs (Alcohol Prep Pads) pad topical DIRECTED 06/03/24 Unknown History Exam Airway Mallampati Class: II TM Dist: >3cm Neck ROM: Full Assessment and Plan Assessment Anesthesia Assessment: Anesthesia Plan Discussed Final Anesthetic Review NPO: Yes ASA Class: III Final Preanesthetic Review: No Changes in Pt Med Stat, Meds/Allgs Chart Reviewed, Consent Obtained/Reviewed and Anes Risks/Benef Reviewed Patient Risk: Intermediate Procedure Risk: Low Anesthetic Plan Anesthetic Plan: TIVA Disposition: Standard PACU
[2024-07-25 07:06] VITALS: BP 147/70; PULSE 82; RESP 16; TEMP 36.4; O2SAT 98
[2024-07-25] MEDS: Lactated Ringers 1,000 ML 100 ML IVCONT (07:19)
--- NOTE | 2024-07-25 07:51 | P.HPSUR_ITS ---
Pre-Procedural Eval Section A - 24 Hr Update-Section A only Date of Service: 07/25/24 Section B - Complete if H&P > 30 days Chief Complaint: gastritis, dysphagia Details of Present Illness: Seropositive rheumatoid arthritis COPD (chronic obstructive pulmonary disease) Nicotine dependence, cigarettes, uncomplicated Osteoporosis Sessile serrated polyp of colon GERD (gastroesophageal reflux disease) Thyroid nodule Liver cyst Back pain History of pneumonia Pericardial effusion History of tachycardia Family history of malignant hyperthermia Surgical History History of dilation and curettage History of colonoscopy History of section Present Medications: see Short Stay Collaborative assessment Allergies: Allergies Allergy/AdvReac Type Severity Reaction Status Date / Time adhesive [ADHESIVE] Allergy Intermediate REDNESS Verified 07/25/24 06:47 levofloxacin [From LEVAQUIN] Allergy Intermediate ITCHINESS Verified 07/25/24 06:47 Sulfa (Sulfonamide Allergy Intermediate Itchiness Verified 07/25/24 06:47 Antibiotics) and Swelling sulfamethoxazole Allergy Intermediate PHOTOSENSIT Verified 07/25/24 06:47 [From BACTRIM] IVITY/RASH trimethoprim [From BACTRIM] Allergy Intermediate PHOTOSENSIT Verified 07/25/24 06:47 IVITY/RASH Review of Systems Review of Systems Comment: 10 point ROS negative Exam Exam Comment: Gen appear: No acute distress HEENT: no icterus Chest: No overt resp distress Abd: soft, nontender, nondistended Psych: Stable affect, answering questions appropriately Neuro: A/Ox3 noted to move all extremities spontaneously Ext: no peripheral edema Plan Diagnosis/Plan: Unchanged I have reviewed the history and physical and performed a pertinent physical examination on my patient. No changes have occurred unless specified. Time Spent With Patient Time: Total time managing care of this patient today ____ minutes.
--- NOTE | 2024-07-25 08:20 | P.OP_ITS ---
Operative Note Operative Note Date of Service: 07/25/24 Narrative: Procedure: Esophagogastroduodenoscopy Endoscopist: Brina Bowie MD Indication: Dysphagia, gastritis Anesthesia Provider: Dr Shelli Brar Anesthesia Type: MAC ?? EGD Procedure:?? The procedure, indications, preparation and potential complications were reviewed with the patient, who indicated understanding and gave written informed consent to proceed. A physical exam was performed. The endoscope was introduced through the mouth, and advanced to the second part of duodenum. The mucosa was carefully examined on slow withdrawal of the endoscope. The patient tolerated the procedure well. There were no immediate complications.? ? EGD Findings:? * Esophagus:? Normal mucosa noted in the entire esophagus. The Z line was at 34 cm and irregular to 33 cm. There was also small hiatal hernia with the diaphragmatic pinch at 36 cm. GE junction biopsies were taken to rule out López's esophagus. Middle esophagus biopsy was taken to rule out eosinophilic esophagitis. * Stomach:? Normal mucosa was noted in the stomach. Retroflexion was performed in the cardia that showed Hill grade 2 hiatal hernia. Cold forceps biopsies were taken for H pylori. * Duodenum:? Normal mucosa was noted in the whole of the examined duodenum. The major papilla appeared prominent and bulbous. Cold forceps biopsies were taken from the papilla to rule out adenoma. ? EGD Impressions:? * Irregular Z line (biopsy) * Hiatal hernia * Normal stomach (biopsy) * Abnormal appearance of major papilla (biopsy) ?? Recommendations:?? * Follow biopsy results. Our office will call or send a letter with results within 7-10 days. * If ampullary adenoma confirmed on histology, would recommend dedicated side viewing exam for evaluation and management. * Decrease omeprazole to 20 mg once daily * If H pylori +, patient will be prescribed eradication therapy followed by test of cure. * Avoid NSAIDs. Above has been reviewed with the patient.
[2024-07-25 08:26] VITALS: BP 105/54; PULSE 88; RESP 17; TEMP 37; O2SAT 97
[2024-07-25 08:36] VITALS: BP 112/65; PULSE 90; RESP 17; O2SAT 97
== END 2024-07-25 09:05 | disposition home or self-care (01) ==
PROVIDERS: PCP Family Medicine; Visit Provider Internal Medicine
PROC: 0DJ08ZZ Inspection of Upper Intestinal Tract, Via Natural or Artificial Opening Endoscopic (ICD-10-PCS; CPT 43235; principal; 2024-07-25 07:30)
DX: K22.4 Dyskinesia of esophagus (principal); K22.9 Disease of esophagus, unspecified; K44.9 Diaphragmatic hernia without obstruction or gangrene; K21.9 Gastro-esophageal reflux disease without esophagitis; K83.8 Other specified diseases of biliary tract; J44.9 Chronic obstructive pulmonary disease, unspecified; F17.210 Nicotine dependence, cigarettes, uncomplicated; Z87.01 Personal history of pneumonia (recurrent); Z79.899 Other long term (current) drug therapy
CPT/HCPCS: 43239; 88305; 88313; 88342; C1769; J1596; J2003; J2704

== ENCOUNTER → 2024-07-25 06:30 | Outpatient (BNV) | payer OTHER, SELFPAY | PROVIDERS: PCP Family Medicine; Visit Provider Internal Medicine | DX: R13.10 Dysphagia, unspecified (principal); K29.70 Gastritis, unspecified, without bleeding | CPT/HCPCS: 43239 ==

== ENCOUNTER 2024-08-07 10:35 | Outpatient (AMB) | payer OTHER, SELFPAY ==
--- NOTE | 2024-08-07 10:53 | A.OFFVIS_ITS ---
Vital Signs 08/07/24 11:01 Height 4 ft 10 in Weight 145 lb BMI 30.3 BP 124/66 Blood Pressure Location Rt brachial Position Sitting Pulse 76 Pulse Source Pulse Oximeter Pulse Oximetry (%) 98 Oxygen Delivery Method Room Air Intake Visit Reasons: s/p egd Jamir Intake Note: ESTABLISHED PATIENT for s/p EGD FUV. GERD mgmt CC; Pt denies any GI sx or concerns at this time. 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 Required: No Accompanied by: Self / Same As Patient Allergies adhesive [ADHESIVE] Allergy (Intermediate, Verified 08/07/24 10:58) REDNESS levofloxacin [From LEVAQUIN] Allergy (Intermediate, Verified 08/07/24 10:58) ITCHINESS Sulfa (Sulfonamide Antibiotics) Allergy (Intermediate, Verified 08/07/24 10:58) Itchiness and Swelling sulfamethoxazole [From BACTRIM] Allergy (Intermediate, Verified 08/07/24 10:58) PHOTOSENSITIVITY/RASH trimethoprim [From BACTRIM] Allergy (Intermediate, Verified 08/07/24 10:58) PHOTOSENSITIVITY/RASH HPI HPI s/p egd Jamir: Details: LAST VISIT: GERD (gastroesophageal reflux disease) Plan Continue omeprazole daily. Avoid dietary triggers and late night snacking. Staying upright for minimum 3 hours after meals discussed with patient. Message sent to surgical schedulers to book upper endoscopy for patient. Patient denies any issues with anesthesia in the past. No history of sleep apnea. Patient is on low-dose aspirin. Patient will be seen after the procedure, sooner on as needed basis. She is agreeable to this plan and verbalizes understanding of instructions. She was given the opportunity to ask questions and all questions answered. ? Thank you for allowing me to participate in her care Medications New omeprazole 40 mg PO DAILY 30 caps 3RF ENDOSCOPY: EGD Findings:? * Esophagus:? Normal mucosa noted in the entire esophagus. The Z line was at 34 cm and irregular to 33 cm. There was also small hiatal hernia with the diaphragmatic pinch at 36 cm. GE junction biopsies were taken to rule out López's esophagus. Middle esophagus biopsy was taken to rule out eosinophilic esophagitis. * Stomach:? Normal mucosa was noted in the stomach. Retroflexion was performed in the cardia that showed Hill grade 2 hiatal hernia. Cold forceps biopsies were taken for H pylori. * Duodenum:? Normal mucosa was noted in the whole of the examined duodenum. The major papilla appeared prominent and bulbous. Cold forceps biopsies were taken from the papilla to rule out adenoma.? EGD Impressions:? * Irregular Z line (biopsy) * Hiatal hernia * Normal stomach (biopsy) * Abnormal appearance of major papilla (biopsy)?? Recommendations:?? * Follow biopsy results. Our office will call or send a letter with results within 7-10 days. * If ampullary adenoma confirmed on histology, would recommend dedicated side viewing exam for evaluation and management. * Decrease omeprazole to 20 mg once daily * If H pylori +, patient will be prescribed eradication therapy followed by test of cure. * Avoid NSAIDs. PATHOLOGY: ADDENDUM REPORT Addendum Addendum #1 Additional levels with AB/PAS stains show no chronic injury on A, and no intestinal metaplasia on C. Control stains appropriately. Additional H&E levels on A are negative for dysplasia. Electronically Signed By: Ashlyn Fitch 08/01/24 0857 Diagnosis A. Duodenum, abnormal major papilla, biopsy: Duodenal mucosa with preserved villi and no specific change (see comment). B. Stomach, random, biopsy: Gastric antral and body mucosa with focal minimal chronic inactive inflammation; negative for H. pylori, intestinal metaplasia and dysplasia. C. Esophagogastric junction, biopsy: Squamocolumnar mucosa with mild acute and chronic inflammation, and focal multilayered epithelium; no intestinal metaplasia seen on initial levels; negative for dysplasia (see comment). D. Esophagus, middle, biopsy: Squamous mucosa with no specific change; no columnar mucosa present. Comment: (A): Consider follow-up with re-biopsy if clinically indicated. AB/PAS stain pending; addendum to follow. (C): Multilayered epithelium can be associated with López's mucosa and follow- up is warranted. Additional tissue levels with AB/PAS stain pending; addendum to follow TODAY'S VISIT Is here today for follow-up and to discuss upper endoscopy results. Patient denies any effects from anesthesia or procedure itself. Patient reports mild sore throat for couple days after the procedure. No dysphagia. No López's, no H pylori. Mild chronic inactive inflammation her stomach. Omeprazole was decreased to 20 mg daily. Patient has been taking it since the day she was discharged from her procedure. Patient reports that she has been feeling well. Denies dyspepsia, dysphagia or odynophagia. Denies any nausea or vomiting. Denies any GI symptoms. Patient is due to go for colonoscopy next year in August. [facility] Medical History Rheumatoid arthritis Nicotine dependence, cigarettes, uncomplicated Osteoporosis Sessile serrated polyp of colon Family history of malignant hyperthermia Back pain Thyroid nodule GERD (gastroesophageal reflux disease) Liver cyst History of pneumonia COPD (chronic obstructive pulmonary disease) Pericardial effusion History of tachycardia Seropositive rheumatoid arthritis Surgical History History of dilation and curettage History of colonoscopy History of section Family History Mother HTN (hypertension) Sister Heart disease Social History Household Members: Spouse and Children Housing: House Alcohol intake: current Alcohol intake frequency: a few times a month Alcohol type: wine and hard liquor Patient Tobacco Use Status: Current everyday Tobacco user Tobacco use type: Cigarette Cigarettes Per Day: 7 Years Smoked: onset 13yo, 1ppd x 49yrs, now 1/4ppd - 40pyh Advance Directives Date on File: 01/07/20 service: No Current occupational status: employed Current occupational exposures/hazards: No Cognitive needs: No Hearing needs: No Vision needs: Yes Review of Systems Const Denies weight gain and Denies weight loss ENT Reports no additional complaints, Denies dysphagia and Denies odynophagia Card Reports no additional complaints Resp Reports no additional complaints GI Denies abdominal pain, Denies belching, Denies melena, Denies bloating, Denies change in bowel habits, Denies dysphagia, Denies excessive flatus, Denies dyspepsia, Denies heartburn, Denies diarrhea, Denies loose stools, Denies nausea, Denies odynophagia and Denies vomiting Musc Reports no additional complaints Neuro Reports no additional complaints Psych Reports no additional complaints Endo Reports no additional complaints Physical Exam Vital Signs: Last Vital Signs Pulse 76 08/07/24 11:01 BP 124/66 08/07/24 11:01 Pulse Ox 98 08/07/24 11:01 Oxygen Delivery Method Room Air 08/07/24 11:01 BMI result Body Mass Index 30.3 Const General: healthy appearing, no acute distress and well developed Nutritional Appearance: well nourished Orientation/consciousness: patient oriented x3 HEENT Mouth: Normal oral and palatal mucosa present Throat: Yes posterior oropharynx normal, Yes tonsils normal and Yes uvula midline Resp Effort & Inspection: normal respiratory effort, able to speak in complete sentences, no tracheal deviation and symmetric chest movement Auscultation: clear to auscultation bilaterally Cardio Jugular venous distension: no JVD Rate: regular rate Heart sounds: S1 normal heart sound present, S2 normal heart sound present, no gallops and no murmurs GI Inspection: Yes normal to inspection and No distended Palpation (GI): Soft to palpation, not firm, nontender and No hepatosplenomegaly present Auscultation: normal bowel sounds General: Yes no CVA tenderness Back/Spine/Pelvis Back: no CVA tenderness Skin General skin exam: elasticity normal, turgor normal and dry skin Neuro General: patient oriented x3 Psych Appearance: grossly normal Mental Status: mental status grossly normal Assessment & Plan Assessment & Plan (1) Transaminitis: Code(s): R74.01 - Elevation of levels of liver transaminase levels Category: Medical (2) GERD (gastroesophageal reflux disease): Code(s): K21.9 - Gastro-esophageal reflux disease without esophagitis Qualifiers: Esophagitis presence: without esophagitis Qualified Code(s): K21.9 - Gastro-esophageal reflux disease without esophagitis Plan Patient will continue taking will omeprazole daily. Avoid dietary triggers in the time snacking. Staying upright for minimum 3 hours after meals discussed with patient. Patient will return in 8-10 months and we will discuss going for colonoscopy. Will order liver fibrosis panel and liver panel as well as ultrasound liver elastography to be done before her next appointment. Patient is agreeable to this plan and verbalizes understanding of instructions. She was given the opportunity to ask questions and all questions answered. Thank you for allowing me to participate in her care Orders: Orders Liver Fibrosis Pnl 8 Months K76.0 - Fatty (change of) liver, not elsewhere classified Liver Panel 8 Months R74.01 - Elevation of levels of liver transaminase levels US abdomen rodriguez w elastography 8 Months K76.0 - Fatty (change of) liver, not elsewhere classified Coding Level of Care Code Est Pt Level 3 (51931) Diagnoses Transaminitis R74.01 Gastroesophageal reflux disease without esophagitis K21.9 Esophagitis presence: without esophagitis Time Spent (min) 25 Comment 15 minutes spent with patient and additional 10 minutes spent reviewing her records
[2024-08-07 11:01] VITALS: BP 124/66; PULSE 76; O2SAT 98; BMI 30.3
--- OUTSIDE RECORDS SUMMARY | 2024-08-07 12:04 | XMS_ITS | Clinical Summary ---
Author Organization [facility] ity Address [address] [place] [address] Care Team Providers Care Associate Director Career Services Name Role Phone Unavailable Primary Care Provider [...]
== END 2024-08-07 11:30 | disposition home or self-care (01) ==
LOC: HO.HGI 10:36
PROVIDERS: PCP Family Medicine; Visit Provider Nurse Practitioner Family
DX: R74.01 Elevation of levels of liver transaminase levels (principal); K21.9 Gastro-esophageal reflux disease without esophagitis
CPT/HCPCS: 99213

== ENCOUNTER → 2024-08-07 10:35 | Outpatient (BNVA) | payer OTHER, SELFPAY | PROVIDERS: PCP Family Medicine; Visit Provider Nurse Practitioner Family | DX: R74.01 Elevation of levels of liver transaminase levels (principal); K21.9 Gastro-esophageal reflux disease without esophagitis | CPT/HCPCS: 99212 ==

== ENCOUNTER 2024-09-03 09:26 | Outpatient (REF) | payer OTHER, SELFPAY ==
[2024-09-03 09:55] LABS: MANUAL DIFF FLAG NO
[2024-09-03 10:07] LABS: Basophils Percent Auto 0.7 % (0-2); Eosinophils Absolute Auto 0.3 X10*3/uL (0.0-0.4); Eosinophils Percent Auto 4.7 % (0-4); Hematocrit 43.5 % (37.0-47.0); Hemoglobin 14.9 g/dl (12.0-16.0); Imm Gran Abs Auto 0.02 X10*3/uL (0.00-0.03); Imm Gran Pct Auto 0.3 % (0.0-0.4); Lymphocytes Absolute Auto 2.1 X10*3/uL (1.2-4.9); Lymphocytes Percent Auto 34.6 % (20-40); Mean Corpuscular HGB Conc 34.3 g/dl (31.0-35.0); Mean Corpuscular Hemoglobin 32.3 pg (27.0-33.0); Mean Corpuscular Volume 94.2 fL (80.0-98.0); Monocytes Absolute Auto 0.5 X10*3/uL (0.1-1.2); Monocytes Percent Auto 7.5 % (2-11); Neutrophils Absolute Auto 3.1 x10*3/uL (2.0-8.3); Neutrophils Percent Auto 52.2 % (45-73); Platelet Count 219 X10*3/uL (160-400); Red Blood Count 4.62 X10*6/uL (4.20-5.50); Red Cell Distribution Width 11.9 % (11.0-16.0)
--- OUTSIDE RECORDS SUMMARY | 2024-09-03 10:10 | XMS_ITS | Clinical Summary ---
Author Organization [facility] it[facility] Address [address] [place] [address] Care Team Providers Care Production Metal Sprayer Name Role Phone Unavailable Primary Care Provider [...]
[2024-09-03 10:31] LABS: Alanine Aminotransferase 47 U/L (0-31); Albumin Level 4.4 g/dL (3.5-5.0); Alkaline Phosphatase 49 U/L (39-117); Anion Gap 12 (12-20); Aspartate Amino Transferase 31 U/L (5-31); Bilirubin Total 0.6 mg/dL (0.0-1.0); Blood Urea Nitrogen 20 mg/dL (9-16); C Reactive Protein < 0.10 mg/dL (< or = 0.50); Carbon Dioxide 27 mmol/L (22-29); Chloride 110 mmol/L (96-108); Cholesterol 186 mg/dL (<200); Estimated Glomerular Filt Rate > 60; Glucose Random 117 mg/dL (60-115); HDL Cholesterol 49 mg/dL (>40); LDL Cholesterol Calculated 109 mg/dL (<100); Potassium 4.5 mmol/L (3.3-5.1); Sodium 144 mmol/L (135-145); Total Protein 6.8 g/dL (6.5-8.0); Triglycerides 141 mg/dL (<150)
[2024-09-03 10:45] LABS: Erythrocyte Sedimentation Rate 3 MM/HR (0-20)
== END 2024-09-03 09:27 | disposition home or self-care (01) ==
LOC: HO.LAB 09:26
PROVIDERS: PCP Family Medicine; Visit Provider Student in an Organized Health Care Education/Training Program
DX: M05.9 Rheumatoid arthritis with rheumatoid factor, unspecified (principal); E55.9 Vitamin D deficiency, unspecified
CPT/HCPCS: 36415; 80053; 80061; 85025; 85652; 86140

== ENCOUNTER 2024-09-13 10:37 | Outpatient (AMB) | payer OTHER, SELFPAY ==
--- NOTE | 2024-09-13 10:39 | MHC.OFFVIS ---
Vital Signs 09/13/24 10:50 Height 4 ft 10 in Weight 134 lb 14.766 oz BMI 28.2 BP 124/70 Blood Pressure Location Lt brachial Position Sitting Respiration 16 Pulse 83 Pulse Source Pulse Oximeter Pulse Oximetry (%) 98 Oxygen Delivery Method Room Air Intake Visit Reasons: RA Intake Note: Patient presents for RA follow up. Allergies adhesive (ADHESIVE) Allergy (Intermediate, Verified 09/13/24 10:45) REDNESS levofloxacin (From LEVAQUIN) Allergy (Intermediate, Verified 09/13/24 10:45) ITCHINESS Sulfa (Sulfonamide Antibiotics) Allergy (Intermediate, Verified 09/13/24 10:45) Itchiness and Swelling sulfamethoxazole (From BACTRIM) Allergy (Intermediate, Verified 09/13/24 10:45) PHOTOSENSITIVITY/RASH trimethoprim (From BACTRIM) Allergy (Intermediate, Verified 09/13/24 10:45) PHOTOSENSITIVITY/RASH Medication List - Last Reconciled 09/13/24 by Janae Knox MD acebutolol 200 mg PO DAILY albuterol sulfate 90 mcg/actuation 2 puffs inhalation Q4H PRN alcohol swabs (Alcohol Prep Pads) pad topical DIRECTED alendronate 70 mg PO QWEEK aspirin (Adult Aspirin Regimen) 81 mg PO DAILY atorvastatin 20 mg PO BEDTIME B-complex with vitamin C 1 cap PO DAILY bupropion HCl SR 150 mg PO DAILY carisoprodol 350 mg PO BID PRN cetirizine (Zyrtec) 10 mg PO DAILY PRN cholecalciferol (vitamin D3) 25 mcg PO DAILY coenzyme Q10 (CoQ-10) 100 mg PO DAILY famotidine 40 mg PO DAILY PRN Kevzara (sarilumab) 200 mg (1.14 mL) subcut Q2W NS magnesium 250 mg PO DAILY omeprazole 20 mg PO DAILY 90 days HPI Comments Details: Patient is a 63-year-old female current everyday smoker with hyperlipidemia, osteoporosis and seropositive rheumatoid arthritis here today for follow up Interval History: Last seen with 05/17/24 with me. Visit summary - Continues to do well on the Kevzara - back pain with L spine XR showed degenerative changes. Completing course of prednisone for this from PCP Today, - Back pain. Difficulty with prolonged walking - Shoulder pain. especially on the right - Knee pain. Rheumatologic History: Seropositive rheumatoid arthritis +RF+CCP, ?pericarditis dx 2014 MTX & HCQ started 2014 Enbrel added 2016 & was working relatively but couldn't continue due to insurance issues, switched to Humira which was ineffective Kevzara started 2018 effective HCQ DC in 2019 (didn't feel a difference when she stopped it when taking Azithromycin for an infection) MTX DC 02/09 due to transaminitis Initial history: This is a 61-year-old female with seropositive RA presents our evaluation. Her previous aemt left the practice. Patient states she feels relatively well overall. She is having triggering of her left thumb and left index fingers. 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 She is tolerating methotrexate, Kevzara and folic acid. Osteoporosis (Bone Dexa Femoral T-score: -2.6 on 06/14/22) alendronate 04/2023 Current Rheumatology Medication(s): Kevzara 200 mg every 2 weeks SC Alendronate 70 mg every week Vitamin D3 daily supplement [facility] Medical History (Updated 09/13/24 @ 11:05 by Janae Knox MD) Abnormal endoscopy of upper gastrointestinal tract Rheumatoid arthritis Nicotine dependence, cigarettes, uncomplicated Osteoporosis Sessile serrated polyp of colon Family history of malignant hyperthermia Back pain Thyroid nodule GERD (gastroesophageal reflux disease) Liver cyst History of pneumonia COPD (chronic obstructive pulmonary disease) Pericardial effusion History of tachycardia Seropositive rheumatoid arthritis Surgical History History of dilation and curettage History of colonoscopy History of section Family History Mother HTN (hypertension) Sister Heart disease Social History Household Members: Spouse and Children Housing: House Alcohol intake: current Alcohol intake frequency: a few times a month Alcohol type: wine and hard liquor Comment: Occassionally Patient Tobacco Use Status: Current everyday Tobacco user Tobacco use type: Cigarette Cigarettes Per Day: 7 Years Smoked: onset 13yo, 1ppd x 49yrs, now 1/4ppd - 40pyh Advance Directives Date on File: 01/07/20 service: No Current occupational status: employed Current occupational exposures/hazards: No Cognitive needs: No Hearing needs: No Vision needs: Yes Review of Systems Const Details: Review of Systems Constitutional: Denies fever, chills, weight loss ENT: Denies vision changes, eye pain or eye redness, dental caries, dry mouth GI: Denies nausea, vomiting, diarrhea, abdominal pain, change in BM Pulm: Denies SOB, PEREZ, hemoptysis, wheezing Cards: Denies chest pain, palpitations Skin: Denies Raynaud's, rash, nail changes, photosensitivity, ASSISTANT SPEECH LANGUAGE PATHOLOGIST: Denies headaches, weakness, paresthesias, recurrent falls MSK: as per HPI All other systems reviewed and are unremarkable except noted above Physical Exam Vital Signs: Last Vital Signs Pulse 83 09/13/24 10:50 Resp 16 09/13/24 10:50 BP 124/70 09/13/24 10:50 Pulse Ox 98 09/13/24 10:50 Oxygen Delivery Method Room Air 09/13/24 10:50 BMI result Body Mass Index 28.2 Vital signs reviewed Physical Examination CONSTITUITIONAL Patient alert and cooperative. Well appearing and in no apparent painful distress HEENT Conjunctiva and sclera clear. ?Pupils equal round and reactive to light. ?No lymphadenopathy. ? CHEST/RESPIRATORY SYSTEM Normal respiratory effort and able to speak in complete sentences. ?Clear to auscultation bilaterally. ?No crackles, rales, rhonchi, wheezes heard. CARDIAC SYSTEM Regular rate and rhythm. ?S1 and S2 heard no murmurs. ?Radial pulses intact bilaterally MSK Hands: ?Good bleach mixer strength bilaterally. No deformities noted. ?No synovitis noted to the MCPs, PIPs or DIPs. ?Heberden's nodes noted Wrists: ?Full range of motion at the wrists without pain. ?No tenderness to palpation or synovitis noted to the wrists. Elbows: Full range of motion without pain. No tenderness, weakness, swelling, increased warmth or erythema. Shoulders: Full range of motion without pain. No weakness, swelling, increased warmth or erythema. TTP of bilateral AC joints Hip bursa: No tenderness to palpation Knees: ?Full range of motion. ?No tenderness, swelling, increased warmth or erythema.? Bilateral crepitations felt TTP bilateral pes anserine bursa Ankles: Full range of motion. ?No tenderness, swelling, increased warmth or erythema.? Feet: ?Negative squeeze test. ?No tenderness to palpation or swelling of the MTPs. Tender points:?No tenderness to palpation of the bilateral trapezius, supraspinatus, greater trochanters, anterior costochondral junctions, bilateral gluteal areas, bilateral suboccipital muscle insertions SKIN Skin intact without rashes. Results Reviewed Results Reviewed: Laboratory Tests 05/17/24 09/03/24 08:23 09:54 WBC 6.0 RBC 4.62 Hgb 14.9 Hct 43.5 Plt Count 219 ESR 3 Sodium 144 Potassium 4.5 Chloride 110 H Carbon Dioxide 27 BUN 20 H Creatinine 0.79 Calcium 9.0 Total Bilirubin 0.6 AST 31 ALT 46 H 47 H C-Reactive Protein < 0.10 25-OH Vitamin D Total 43 Infectious serologies 05/17/24 08:23 Hepatitis A IgM Ab Nonreactive Hep Bs Antigen Negative Hep Bs Antibody REACTIVE Hep B Core Total Ab Nonreactive Hepatitis C Ab (EIA) Nonreactive TB Test (T-Spot) Com Negative XR L spine 04/2024 FINDINGS: AP, lateral, and coned down views of the lumbar spine are submitted. The AP view is somewhat limited by oral contrast material in the colon from recent barium swallow. Osseous mineralization is normal. Five nonrib-bearing lumbar vertebral bodies are identified, maintaining normal height and alignment without evidence of fracture or spondylolisthesis. There is mild degenerative disc disease with disc space narrowing and anterior spurring. The posterior elements are intact. There is calcification of the abdominal aorta. IMPRESSION: Mild degenerative changes as described. DEXA 06/2024 FINDINGS: The bone mineral density of the lumbar spine is 0.910 with a T-score of -2.3, and a Z-score of -0.6. This is indicative of osteopenia. This represents a BMD change of -6.3% compared to the prior exam. This is statistically significant. The bone mineral density of the left total hip is 0.802 with a T-score of -1.6, and a Z-score of -0.4. This is indicative of osteopenia. This represents a BMD change of 1.5% compared to the prior exam. This is not statistically significant. The bone mineral density of the left femoral neck is 0.661 with a T-score of -2.7, and a Z-score of -1.2. This is indicative of osteoporosis. This represents a BMD change of -2.1% compared to the prior exam. Assessment & Plan Assessment & Plan (1) Seropositive rheumatoid arthritis: Comment: +RF+CCP, ?pericarditis dx 2014 MTX & HCQ started 2014 Enbrel added 2016 & was working relatively but couldn't continue due to insurance issues, switched to Humira which was ineffective Kevzara started 2018 effective HCQ DC in 2019 (didn't feel a difference when she stopped it when taking Azithromycin for an infection) MTX DC 02/09 due to transaminitis Code(s): M05.9 - Rheumatoid arthritis with rheumatoid factor, unspecified Category: Medical Plan: #Seropositive RA Patient is a 63-year-old female current everyday smoker here today to follow up for seropositive rheumatoid arthritis. Joints are currently in remission on Kevzara Plan - Kevzara 200mg SC every 2 weeks - RTC 6 months - Labs before visit: CBC, CMP, ESR, CRP, lipid panel (2) Osteoporosis: Comment: DEXA 05/2022: AP spine -1.7, Left femur neck -2.6, Left femur total -1.7 DEXA 06/2024: AP spine -2.3, Left femur neck -2.7, Left femur total -1.6 alendronate 04/2023 Code(s): M81.0 - Age-related osteoporosis without current pathological fracture Category: Medical Qualifiers: Osteoporosis type: age-related Presence of current pathological fracture: without current pathological fracture Qualified Code(s): M81.0 - Age-related osteoporosis without current pathological fracture Plan: #Osteoporosis Patient without fall or fractures. Worsening DEXA Change to prolia Plan - stop alendronate - Start prolia 60mg SC every 6 months - Encouraged weight bearing exercises - Vitamin D supplementation to keep Vit D > 35 - CMP and Vit D (3) Polyarticular osteoarthritis: Code(s): M15.9 - Polyosteoarthritis, unspecified Plan: #Polyarticular OA Patient with polyarticular OA complicated by bilateral pes anserine bursitis Also with lumbar degenerative disc disease Plan - Topical diclofenac with pes anserine bursa exercises - Pain management referral for lumbar back pain - MRI L spine (4) Encounter for monitoring tocilizumab therapy: Code(s): Z51.81 - Encounter for therapeutic drug level monitoring; 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 ? 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 Mild increased risk of infections due to RANKL on T helper cells, increased risk of hypocalcemia especially in CKD patients Keep vitamin-D at least 35 ng/mL Advised to delay non emergent dental procedures to toward the end of the 6 month cycle and if they plan to stop denosumab would need to continue antiresorptive to maintain the effects of denosumab Plan I spent 30 minutes reviewing the record and labs, taking a history, examining the patient, discussing the treatment plan and documenting in the medical record Orders: Orders MR lumbar spine wo con Today M54.50 - Low back pain, unspecified Complete Blood Count Auto Diff 6 Months M05.9 - Rheumatoid arthritis with rheumatoid factor, unspecified Comprehensive Met. Panel 6 Months M05.9 - Rheumatoid arthritis with rheumatoid factor, unspecified Lipid Panel 6 Months M05.9 - Rheumatoid arthritis with rheumatoid factor, unspecified Vitamin D 25-OH Total 6 Months E55.9 - Vitamin D deficiency, unspecified C Reactive Protein 6 Months M05.9 - Rheumatoid arthritis with rheumatoid factor, unspecified Erythrocyte Sedimentation Rate 6 Months M05.9 - Rheumatoid arthritis with rheumatoid factor, unspecified Referrals Pain Management Referral M54.50 - Low back pain, unspecified Medications: Discontinued alendronate Discontinued Reason: Doctor's Order 70 mg PO QWEEK 12 tabs 1RF Coding Level of Care Code Est Pt Level 4 (21386) Complex EM visit Add On G2211 Diagnoses Seropositive rheumatoid arthritis M05.9 Age-related osteoporosis without current pathological fracture M81.0 Osteoporosis type: age-related Presence of current pathological fracture: without current pathological fracture Polyarticular osteoarthritis M15.9 Encounter for monitoring tocilizumab therapy Z51.81; Z79.620 Encounter for monitoring denosumab therapy Z51.81; Z79.620
[2024-09-13 10:50] VITALS: BP 124/70; PULSE 83; RESP 16; O2SAT 98; BMI 28.2
--- OUTSIDE RECORDS SUMMARY | 2024-09-13 11:29 | XMS_ITS | Clinical Summary ---
Author Organization [facility] [address] ity Address [address] [place] [address] Care Team Providers Care Food Specialist Name Role Phone Unavailable Primary Care Provider [...]
== END 2024-09-13 11:22 | disposition home or self-care (01) ==
LOC: HO.RHE 10:37
PROVIDERS: PCP Family Medicine; Visit Provider Student in an Organized Health Care Education/Training Program
DX: M05.79 Rheumatoid arthritis with rheumatoid factor of multiple sites without organ or systems involvement (principal); M81.0 Age-related osteoporosis without current pathological fracture; M15.9 Polyosteoarthritis, unspecified; Z51.81 Encounter for therapeutic drug level monitoring; Z79.620 Long term (current) use of immunosuppressive biologic
CPT/HCPCS: 99214; G2211

== ENCOUNTER → 2024-09-13 10:37 | Outpatient (BNVA) | payer OTHER, SELFPAY | PROVIDERS: PCP Family Medicine; Visit Provider Student in an Organized Health Care Education/Training Program | DX: M81.0 Age-related osteoporosis without current pathological fracture (principal); M05.9 Rheumatoid arthritis with rheumatoid factor, unspecified; E55.9 Vitamin D deficiency, unspecified; M15.9 Polyosteoarthritis, unspecified; Z51.81 Encounter for therapeutic drug level monitoring; Z79.620 Long term (current) use of immunosuppressive biologic | CPT/HCPCS: 99212 ==

== ENCOUNTER 2024-09-23 15:31 | Outpatient (REF) | payer OTHER, SELFPAY ==
--- OUTSIDE RECORDS SUMMARY | 2024-09-23 15:43 | XMS_ITS | Clinical Summary ---
Author Organization [facility] ity Address [address] [place] [address] Care Team Providers Care Economic Development Specialist Name Role Phone Unavailable Primary Care [...] Influencers of Health Screening 02/20/2022 COVID-19 Vaccine (1 - 2023-2 5 season) 2023 Influenza Vaccine (#1) 2024 RSV Immunization Adult Patie nts (1 [...] 5 Years) and At-Risk Patients (6 to 49 Years) Aged Out No longer eligible b ased on patient's age to complete this topic RSV Immunization Patients Un dimple 20 months Aged Out No longer eligible b ased on patient's age to complete this topic Varicella Vaccines Aged Out No longer eligible based on patient's age to complete this topic
[2024-09-23 17:55] LABS: Albumin Level 4.7 g/dL (3.5-5.0); Alkaline Phosphatase 54 U/L (39-117); Anion Gap 13 (12-20); Aspartate Amino Transferase 29 U/L (5-31); Blood Urea Nitrogen 22 mg/dL (9-16); Calcium 9.6 mg/dL (8.4-10.2); Carbon Dioxide 27 mmol/L (22-29); Chloride 106 mmol/L (96-108); Estimated Glomerular Filt Rate > 60; Potassium 4.4 mmol/L (3.3-5.1); Sodium 142 mmol/L (135-145); Total Protein 7.4 g/dL (6.5-8.0)
[2024-09-23 18:07] LABS: Alanine Aminotransferase 40 U/L (0-31)
[2024-09-26 16:29] LABS: Vitamin D 25-OH, D2 <4 ng/mL; Vitamin D 25-OH, D3 45 ng/mL; Vitamin D 25-OH, Total 45 ng/mL (30-100)
== END 2024-09-23 15:32 | disposition home or self-care (01) ==
LOC: HO.LAB 15:31
PROVIDERS: PCP Family Medicine; Visit Provider Student in an Organized Health Care Education/Training Program
DX: M81.0 Age-related osteoporosis without current pathological fracture (principal)
CPT/HCPCS: 36415; 80053; 82306

== ENCOUNTER → 2024-09-26 19:57 | Outpatient (BNV) | payer OTHER, SELFPAY | PROVIDERS: PCP Family Medicine; Visit Provider General Practice | DX: M54.50 Low back pain, unspecified (principal) | CPT/HCPCS: 72148 ==

== ENCOUNTER 2024-09-26 20:02 | Outpatient (REF) | payer OTHER, SELFPAY ==
--- NOTE | ~2024-09-26 | MR_ITS ---
CLINICAL HISTORY: M54.50 - Low back pain, unspecified MR lumbar spine without gadolinium Comparison: None Findings: Visualized conus is unremarkable and terminates at L1. Lumbar vertebral body heights are well-maintained. Alignment is satisfactory. Minimal marrow edema is present at the interfacing endplates of L1-L2, likely degenerative. No acute fracture or pathologic bone lesion. Cauda equina and conus medullaris within normal limits. Degenerative changes are mild throughout the lumbar spine. There is mild desiccation of the intervertebral discs. No significant central canal or neural foraminal stenosis. Paraspinous musculature intact. IMPRESSION: Minimal edema of the interfacing endplates of L1 and L2, likely on a degenerative basis. Otherwise unremarkable lumbar spine MRI This document has been electronically signed by: Iam Winn MD, PHD on 09/30/2024 02:37:44
== END 2024-09-26 20:03 | disposition home or self-care (01) ==
LOC: HO.MRI 20:02
PROVIDERS: PCP Family Medicine; Visit Provider Student in an Organized Health Care Education/Training Program
DX: M54.50 Low back pain, unspecified (principal)
CPT/HCPCS: 72148

== ENCOUNTER 2024-10-02 13:19 | Outpatient (AMB) | payer OTHER, SELFPAY ==
--- NOTE | 2024-10-02 13:22 | MHC.OFFVIS ---
Vital Signs 10/02/24 13:23 Height 4 ft 10 in Weight 135 lb BMI 28.2 BP 129/59 L Blood Pressure Location Rt brachial Position Sitting Respiration 16 Pulse 86 Pulse Source Pulse Oximeter Pulse Oximetry (%) 98 Oxygen Delivery Method Room Air Intake Visit Reasons: Low back pain Recreational Aide Required: No Accompanied by: Self / Same As Patient Allergies adhesive (ADHESIVE) Allergy (Intermediate, Verified 10/02/24 13:26) REDNESS levofloxacin (From LEVAQUIN) Allergy (Intermediate, Verified 10/02/24 13:26) ITCHINESS Sulfa (Sulfonamide Antibiotics) Allergy (Intermediate, Verified 10/02/24 13:26) Itchiness and Swelling sulfamethoxazole (From BACTRIM) Allergy (Intermediate, Verified 10/02/24 13:26) PHOTOSENSITIVITY/RASH trimethoprim (From BACTRIM) Allergy (Intermediate, Verified 10/02/24 13:26) PHOTOSENSITIVITY/RASH HPI Comments Details: The patient is a 64-year-old female presenting with chronic back pain and associated symptoms. The patient has a history of degenerative disc disease and osteoarthritis, with MRI findings indicating edema and inflammation at L1-L2, but no stenosis or nerve impingement. She has experienced back pain for over 10 years, initially triggered by moving a heavy object, leading to muscle spasms and persistent pain radiating to the thigh and groin. She has tried topical Voltaren with minimal improvement. Reports ice helps the most. The patient was diagnosed with rheumatoid arthritis in 2016, contributing to joint pain and inflammation. She also has bursitis, with recent exacerbation due to physical activity, resulting in a pulled calf muscle. The pain is exacerbated by certain movements and activities such as walking and climbing stairs. The patient has osteoporosis and has been advised to avoid NSAID use due to gastric erosion. She has tried various muscle relaxants with limited relief. Patient also complaining of right shoulder and right knee pain that she would like evaluated. Requesting physical therapy for these areas in hopes of future interventional management if no relief with PT. Denies red flag symptoms including new loss of bowel, bladder or saddle anesthesia. - Onset: Pain began over 10 years ago after moving a heavy object. - Quality: Described as spasms and a persistent knot-like sensation. - Location: Pain primarily in the back, radiating to the thigh and calf. - Exacerbating Factors: Physical activity, walking, and climbing stairs. - Relieving Factors: Ice application provides some relief. - Affect: Pain impacts daily activities and mood, causing frustration and limitations. - Analgesia: Past medications include muscle relaxants like Flexeril and Soma, with limited relief. - Adverse Effects: Reports gastric erosion from NSAIDs, limiting their use. - Activities of Daily Living: Pain limits mobility, affecting ability to walk and perform daily tasks. - Aberrant Drug Related Behaviors: No aberrant behaviors reported. [facility] Medical History (Updated 10/02/24 @ 14:20 by Sheba Jerez APRN, FENDER MECH[employer]IC) Abnormal endoscopy of upper gastrointestinal tract Rheumatoid arthritis Nicotine dependence, cigarettes, uncomplicated Osteoporosis Sessile serrated polyp of colon Family history of malignant hyperthermia Back pain Thyroid nodule GERD (gastroesophageal reflux disease) Liver cyst History of pneumonia COPD (chronic obstructive pulmonary disease) Pericardial effusion History of tachycardia Seropositive rheumatoid arthritis Surgical History History of dilation and curettage History of colonoscopy History of section Family History Mother HTN (hypertension) Sister Heart disease Social History Household Members: Spouse and Children Housing: House Alcohol intake: current Alcohol intake frequency: a few times a month Alcohol type: wine and hard liquor Comment: Occassionally Patient Tobacco Use Status: Current everyday Tobacco user Tobacco use type: Cigarette Cigarettes Per Day: 7 Years Smoked: onset 13yo, 1ppd x 49yrs, now 1/4ppd - 40pyh Advance Directives Date on File: 01/07/20 service: No Current occupational status: employed Current occupational exposures/hazards: No Cognitive needs: No Hearing needs: No Vision needs: Yes Review of Systems Const Details: - Musculoskeletal: Reports chronic back pain, joint pain, and muscle spasms. - Neurological: Denies numbness or tingling. - Cardiovascular: Reports history of pericarditis. - Respiratory: Reports history of pneumonia. Physical Exam Vital Signs: Last Vital Signs Pulse 86 10/02/24 13:23 Resp 16 10/02/24 13:23 BP 129/59 L 10/02/24 13:23 Pulse Ox 98 10/02/24 13:23 Oxygen Delivery Method Room Air 10/02/24 13:23 BMI result Body Mass Index 28.2 General: awake, alert, oriented. Answers questions appropriately. Fully engaged in examination. Skin: warm, dry, intact HEENT: Normocephalic. Hearing intact. Cardiac: External chest normal in appearance. Respiratory: No cough, audible wheezing or stridor. Abdomen: without gross distension. MS: No obvious swelling or deformities. Able to stand on bilateral tiptoes and bilateral heels.? Able to transition from sit to stand unassisted. Ambulates with bilaterally normal heel strike and toe off SLR negative bilaterally Tenderness over midline lumbar vertebrae and lumbar paraspinal muscles SLR negative bilaterally SIJ: Garvey's palpation over PSIS bilaterally. Gaenslen positive bilaterally. Thigh thrust positive bilaterally. SI compression positive bilaterally. Neurological: Oriented to person, place, time and situation. Thought process intact. No gait abnormalities appreciated. Psychiatric: Appropriate mood and affect. Good judgment and insight. Results Reviewed Results Reviewed: 09/30/24 MR lumbar spine without gadolinium Findings: Visualized conus is unremarkable and terminates at L1. Lumbar vertebral body heights are well-maintained. Alignment is satisfactory. Minimal marrow edema is present at the interfacing endplates of L1-L2, likely degenerative. No acute fracture or pathologic bone lesion. Cauda equina and conus medullaris within normal limits. Degenerative changes are mild throughout the lumbar spine. There is mild desiccation of the intervertebral discs. No significant central canal or neural foraminal stenosis. Paraspinous musculature intact. IMPRESSION: Minimal edema of the interfacing endplates of L1 and L2, likely on a degenerative basis. Otherwise unremarkable lumbar spine MRI Assessment & Plan Assessment & Plan (1) Sacroiliac joint dysfunction of both sides: Code(s): M53.3 - Sacrococcygeal disorders, not elsewhere classified Category: Medical (2) Lumbar spondylosis: Code(s): M47.816 - Spondylosis without myelopathy or radiculopathy, lumbar region Category: Medical (3) Seropositive rheumatoid arthritis: Code(s): M05.9 - Rheumatoid arthritis with rheumatoid factor, unspecified Category: Medical (4) Tendinopathy of right rotator cuff: Code(s): M67.911 - Unspecified disorder of synovium and tendon, right shoulder Category: Medical (5) Right knee pain: Code(s): M25.561 - Pain in right knee Category: Medical Plan The plan includes initiating physical therapy to address the sacroiliac joint dysfunction and improve mobility. The patient will be monitored for response to therapy, and if ineffective, further interventions such as injections may be considered. Physical therapy will also be ordered for right shoulder and right knee. Order for cyclobenzaprine will be sent to the pharmacy. Patient tolerated in the past with good effect. The patient is advised to avoid NSAIDs due to history of gastric erosion. The patient is encouraged to use ice for symptomatic relief and to report any changes in symptoms or new side effects. Follow-up is recommended to reassess pain levels and adjust the treatment plan as necessary. Patient was informed and verbally consented to the use of an ambient scribe for clinic note documentation during this visit. Orders: Orders PT Evaluation and Treatment Today M25.561 - Pain in right knee, M47.816 - Spondylosis without myelopathy or radiculopathy, lumbar region, M53.3 - Sacrococcygeal disorders, not elsewhere classified, M67.911 - Unspecified disorder of synovium and tendon, right shoulder Medications: New cyclobenzaprine 5 mg PO TID PRN 60 tabs 1RF muscle spasm Patient Instructions: - Start physical therapy as recommended. - Avoid NSAIDs due to gastric erosion. - Use ice for pain relief as needed. - Report any changes in symptoms or new side effects. - Follow up as scheduled to reassess pain levels. Coding Level of Care Code New Pt Level 4 (30242) Complex EM visit Add On G2211 Diagnoses Sacroiliac joint dysfunction of both sides M53.3 Lumbar spondylosis M47.816 Seropositive rheumatoid arthritis M05.9 Tendinopathy of right rotator cuff M67.911 Right knee pain M25.561
[2024-10-02 13:23] VITALS: BP 129/59; PULSE 86; RESP 16; O2SAT 98; BMI 28.2
--- OUTSIDE RECORDS SUMMARY | 2024-10-02 14:08 | XMS_ITS | Clinical Summary ---
Author Organization [facility] ity Address [address] [place] [address] Care Team Providers Care Post Office Clerk Name Role Phone Unavailable Primary Care Provider [...]
== END 2024-10-02 14:17 | disposition home or self-care (01) ==
LOC: HO.PMC 13:20
PROVIDERS: PCP Family Medicine; Visit Provider Registered Nurse Emergency
DX: M53.3 Sacrococcygeal disorders, not elsewhere classified (principal); M47.816 Spondylosis without myelopathy or radiculopathy, lumbar region; M05.9 Rheumatoid arthritis with rheumatoid factor, unspecified; M67.911 Unspecified disorder of synovium and tendon, right shoulder; M25.561 Pain in right knee
CPT/HCPCS: 99204; G2211

== ENCOUNTER → 2024-10-02 13:19 | Outpatient (BNVA) | payer OTHER, SELFPAY | PROVIDERS: PCP Family Medicine; Visit Provider Registered Nurse Emergency | DX: M53.3 Sacrococcygeal disorders, not elsewhere classified (principal); M47.816 Spondylosis without myelopathy or radiculopathy, lumbar region; M05.9 Rheumatoid arthritis with rheumatoid factor, unspecified; M67.911 Unspecified disorder of synovium and tendon, right shoulder; M25.561 Pain in right knee | CPT/HCPCS: 99202 ==

== ENCOUNTER 2024-10-03 08:52 | Outpatient (AMB) | payer OTHER, SELFPAY ==
--- NOTE | 2024-10-03 09:08 | AM.OFFVISNUR ---
Intake Visit Reasons: prolia inj Allergies adhesive (ADHESIVE) Allergy (Intermediate, Verified 10/02/24 13:26) REDNESS levofloxacin (From LEVAQUIN) Allergy (Intermediate, Verified 10/02/24 13:26) ITCHINESS Sulfa (Sulfonamide Antibiotics) Allergy (Intermediate, Verified 10/02/24 13:26) Itchiness and Swelling sulfamethoxazole (From BACTRIM) Allergy (Intermediate, Verified 10/02/24 13:26) PHOTOSENSITIVITY/RASH trimethoprim (From BACTRIM) Allergy (Intermediate, Verified 10/02/24 13:26) PHOTOSENSITIVITY/RASH Office Meds Prolia 60 mg/mL subcutaneous syringe Performing Provider: Janae Knox MD Performing Location: [facility] Administered by: Jaki Kenny RN on 10/03/24 09:08 Dose Route Admin Location Dispensed Lot Number Expiration Date ND Electronic Repair Troubleshooter 60 mg subcut 1 mL [id number] 11/17/26 82146-031-62 [employer] Total Dispensed Waste 1 mL 0 % Comments: Patient in for first injection. Educated on injection site reactions and other adverse reactions. Patient stayed for observation for 15 minutes after injection. Tolerated injection well. Assessment & Plan Assessment & Plan Orders: Orders AMB Denosumab Injection Practice Supplied Today M05.9 - Rheumatoid arthritis with rheumatoid factor, unspecified Coding
--- OUTSIDE RECORDS SUMMARY | 2024-10-03 09:10 | XMS_ITS | Clinical Summary ---
Author Organization [facility] ity Address [address] [place] [address] Care Team Providers Care Pediatric Speech Therapist Name Role Phone Unavailable Primary Care Provider [...]
== END 2024-10-03 09:14 | disposition home or self-care (01) ==
LOC: HO.RHE 08:52
PROVIDERS: PCP Family Medicine; Visit Provider Student in an Organized Health Care Education/Training Program
DX: M05.79 Rheumatoid arthritis with rheumatoid factor of multiple sites without organ or systems involvement (principal)

== ENCOUNTER → 2024-10-03 08:52 | Outpatient (BNVA) | payer OTHER, SELFPAY | PROVIDERS: PCP Family Medicine; Visit Provider Student in an Organized Health Care Education/Training Program | DX: M06.9 Rheumatoid arthritis, unspecified (principal) | CPT/HCPCS: 96372; J0897 ==

== ENCOUNTER 2024-12-12 10:00 | Outpatient (RCR) | payer OTHER, SELFPAY ==
--- NOTE | 2024-11-06 08:17 | MHC.PT.EP ---
[facility] [place] Office [place] Office [place] Office [address] Mag[address] Mcallister [address] [phone] F: [phone] F: [phone] F: [phone] F: [phone] Physical Therapy Plan of Care Date of Evaluation: 11/04/24 Date of Surgery: Diagnosis: M25.561 - Pain in right knee, M47.816 - Spondylosis without myelopathy or radiculopathy, lumbar region, M53.3 - Sacrococcygeal disorders, not elsewhere classified. Assessment: Pt is a 64 y/o female referred to PT for eval and treat of Spondylosis without myelopathy or radiculopathy, lumbar region, Sacrococcygeal disorders which is resulting in decreased tolerance for walking for moderate duration, negotiating stairs, engaging in fitness/ recreational activities, as well as rolling in bed and disturbed sleep secondary to decreased trunk ROM, increased lumbar and hamstring tissue tension, decreased hip and core strength, chronic R knee pain, painful bed mobility, TTP of L SIJ area, and pain with activity. Pt is deemed an appropriate candidate to receive skilled PT services to address their physical impairments in order to improve their functional ability. Frequency and Duration: The patient will be seen 2 x/ wk x 4 wks. Short Term Goals: Initiate home program. Pt will improve baseline LBP from 0-8/10, to at most 0-5/10. Manager Small Business Goals: I with home program. Pt will improve Shavon outcome measure by at least 9 points. Pt will be able to walk long distances with managed LBP; initial: unable to tolerate moderate distances w/o pain. Pt will report no longer disturbed of sleep d/t LBP; initial: 1/4 disturbed. Treatment Plan: Modalities to reduce pain, spasms and effusion. Manual therapy to restore motion and function. Therapeutic exercise to improve strength and flexibility. Neuromuscular re-education for posture and balance. Therapeutic activities to return to functional activities of daily living. Electronically signed by: Ubaldo Cha PT. Please sign and return to therapist. Thank you for your referral.
--- NOTE | 2024-12-12 16:21 | MHC.PT.DC ---
[facility] [place] Office [place] Office [place] Office [address] Patti Mcallister [address] [phone] F: [phone] F: [phone] F: [phone] F: [phone] Physical Therapy Discharge Report Diagnosis: M25.561 - Pain in right knee, M47.816 - Spondylosis without myelopathy or radiculopathy, lumbar region, M53.3 - Sacrococcygeal disorders, not elsewhere classified. Date of Surgery: Date of Evaluation: 11/04/24 Date of Discharge: 12/12/24 Treatments to Date: 10 Cancellations to Date: No Shows to Date: Discharge Status: Improved Function Independent with HEP Discharge Summary: 12/12: Pt has been an active and motivated participant in her therapy and although persists with some back pain with longer walks and inclines she is improved of her function, has met most of her therapeutic goals, is not longer disturbed of sleep d/t back pain, she is I with a gentle home program and in agreement with DC at this time. Electronically signed by: Ubaldo Cha PT. Please sign and return to therapist. Thank you for your referral.
== END 2024-12-12 16:21 | disposition home or self-care (01) ==
LOC: HO.PT 10:00
PROVIDERS: PCP Physician Assistant; Visit Provider Registered Nurse Emergency
DX: M67.911 Unspecified disorder of synovium and tendon, right shoulder (principal); M53.3 Sacrococcygeal disorders, not elsewhere classified; M25.561 Pain in right knee; M47.816 Spondylosis without myelopathy or radiculopathy, lumbar region
CPT/HCPCS: 97110; 97140; 97161; 97530

== ENCOUNTER 2024-12-31 07:38 | Outpatient (REF) | payer OTHER, SELFPAY ==
--- NOTE | ~2024-12-31 | CT_ITS ---
EXAMINATION: CT LUNG SCREENING HISTORY: F17.210 - Nicotine dependence, cigarettes, uncomplicated TECHNIQUE: Low dose axial images were obtained from the sternal notch to upper abdomen without IV contrast per standard departmental protocol. Sagittal and coronal reformatted images were also obtained and reviewed. One or more of the following techniques was used for dose reduction: Automated exposure control, adjustment of the mA and/or kV according to patient size, use of iterative reconstruction technique. DLP: 50 mGy-cm COMPARISON: Comparison is made with the prior examination dated 11/29/2023. FINDINGS: Lung nodules: Again seen are scattered tiny nodules in both lungs. There is a punctate nodule in the right lower lobe adjacent to the major fissure (series 4, image 85). There is a 3 mm nodule in the left lower lobe (series 4, image 84). There is a 4 mm nodule in the left lower lobe (series 4, image 100). No new pulmonary nodules are identified. Emphysema: mild Coronary Calcification: mild Aortic Arch Calcification: moderate Potentially Significant Incidentals : none Additional Chest Findings: There is no pleural or pericardial effusion. No mediastinal or axillary lymphadenopathy is identified. Visualized upper abdomen: The visualized portions of the liver, spleen, and adrenals have an unremarkable unenhanced appearance. CT/CT lung screening IMPRESSION: No suspicious pulmonary nodules are identified. LUNG-RADS ASSESSMENT: Lung-RADS 2: Benign MANAGEMENT: Continue annual screening with LDCT in 12 months Category S: N/A Electronically signed by: Gabriel Moses MD 12/31/2024 09:04 AM EDT
--- OUTSIDE RECORDS SUMMARY | 2024-12-31 07:40 | XMS_ITS | Clinical Summary ---
Author Organization [facility] ity Address [address] [place] [address] Care Team Providers Care Research Aide Name Role Phone Unavailable Primary Care Provider [...] Last Done Comments Breast Cancer Screening 1960 Colorectal Cancer Screening: Colonoscopy 1960 DTaP,Tdap,and Td Vaccines (1 - Tdap) 07/24/1979 Cervical Cancer Screening: P ap Smear 1981 Pneumococcal Vaccine: 50+ Ye ars (1 of 1 - PCV) 2010 Zoster Vaccines (1 of 2) 2010 HIV Screening 02/20/2022 Hepatitis C Screening 02/20/2022 Social Influencers of Health Screening 02/20/2022 Depression Screening 03/20/2024 COVID-19 Vaccine (1 - 2023-2 5 season) 2024 Influenza Vaccine (#1) 2024 RSV Immunization Adult [...]
== END 2024-12-31 07:39 | disposition home or self-care (01) ==
LOC: HO.CT 07:38
PROVIDERS: PCP Physician Assistant; Visit Provider Physician Assistant Medical
DX: Z12.2 Encounter for screening for malignant neoplasm of respiratory organs (principal); F17.210 Nicotine dependence, cigarettes, uncomplicated
CPT/HCPCS: 71271

== ENCOUNTER → 2024-12-31 07:39 | Outpatient (BNV) | payer OTHER, SELFPAY | PROVIDERS: PCP Physician Assistant; Visit Provider Radiology Diagnostic Radiology | DX: F17.210 Nicotine dependence, cigarettes, uncomplicated (principal) | CPT/HCPCS: 71271 ==

== ENCOUNTER 2025-01-01 13:08 | Outpatient (AMB) | payer OTHER, SELFPAY ==
[2025-01-01 10:45] VITALS: BP 126/74; PULSE 73; TEMP 36.1; O2SAT 99; BMI 28.1
--- NOTE | 2025-01-01 10:45 | MHC.PC.OV ---
Vital Signs 01/01/25 10:45 Height 4 ft 10 in Weight 134 lb 6 oz BMI 28.1 BP 126/74 Blood Pressure Location Lt brachial Position Sitting Pulse 73 Pulse Source Pulse Oximeter Temp 97 F Temp Source Temporal Artery Scan Pulse Oximetry (%) 99 Oxygen Delivery Method Room Air Intake Visit Reasons: 4 MO F/UP - STEVE PT - see comments Portable Machine Cutter Required: No Accompanied by: Self / Same As Patient Allergies adhesive (ADHESIVE) Allergy (Intermediate, Verified 01/01/25 10:45) REDNESS levofloxacin (From LEVAQUIN) Allergy (Intermediate, Verified 01/01/25 10:45) ITCHINESS Sulfa (Sulfonamide Antibiotics) Allergy (Intermediate, Verified 01/01/25 10:45) Itchiness and Swelling sulfamethoxazole (From BACTRIM) Allergy (Intermediate, Verified 01/01/25 10:45) PHOTOSENSITIVITY/RASH trimethoprim (From BACTRIM) Allergy (Intermediate, Verified 01/01/25 10:45) PHOTOSENSITIVITY/RASH Medication List - Last Reconciled 01/27/25 by MOJGAN Leone acebutolol 200 mg PO DAILY albuterol sulfate 90 mcg/actuation (Ventolin HFA) 2 puffs inhalation Q4-6H PRN alcohol swabs (Alcohol Prep Pads) pad topical DIRECTED aspirin (Adult Aspirin Regimen) 81 mg PO DAILY atorvastatin 20 mg PO BEDTIME B-complex with vitamin C 1 cap PO DAILY bupropion HCl SR 150 mg PO DAILY cetirizine (Zyrtec) 10 mg PO DAILY PRN cholecalciferol (vitamin D3) 25 mcg PO DAILY coenzyme Q10 (CoQ-10) 100 mg PO DAILY cyclobenzaprine 5 mg PO TID PRN famotidine 40 mg PO DAILY PRN hydroxyzine HCl 25 mg PO TID PRN Kevzara (sarilumab) 200 mg (1.14 mL) subcut Q2W NS magnesium 250 mg PO DAILY omeprazole 20 mg PO DAILY 90 days Tobacco use date assessed: 01/01/25 Fall risk assessment: No Falls in past year Last assessed Fall Risk: 01/01/25 Dental Screening Dental Screen Date: 01/01/25 Did you have a dental visit in the last 12 months?: Yes Did you have a dental problem in the last 6 months where you did not have access to dental care?: No HPI HPI Comments History of Present Illness Details The patient is a 64-year-old female with RA, COPD, GERD, HLD, back pain and smoker presenting to establish care and management of multiple chronic conditions. The patient has a history of rheumatoid arthritis and is followed by rheumatology. She last saw them in August and has a follow-up scheduled for March [address] Knox. She reports using cetirizine for allergic rhinitis and albuterol as needed for COPD. The patient has a history of gastroesophageal reflux disease, for which she takes omeprazole and famotidine. She underwent a swallow test revealing esophageal erosion and had a biopsy performed. She is scheduled for a liver ultrasound in March and is due for a colonoscopy in August. The patient is a smoker, consuming 5 to 10 cigarettes daily. She attempted to quit last year during a seven-week period of reduced smoking while away. She is currently on bupropion, initially started at 300 mg for smoking cessation, now reduced to 150 mg. The patient reports experiencing headaches for less than a week, primarily in the morning, which may be related to a recent dental infection. She has a dental appointment scheduled for today to address this issue. The patient has a history of hyperlipidemia, managed with atorvastatin and aspirin. She also reports dizziness and nausea, for which she occasionally takes hydroxyzine. The patient has osteoarthritis, with persistent knee pain despite completing physical therapy. She has not seen an retail presentation specialist but has been managed by pain management for her back pain. She recalls a previous episode where her knee swelled, and fluid was aspirated with steroid injection administered. Medical History: - Rheumatoid arthritis - Allergic rhinitis - Gastroesophageal reflux disease - Nicotine dependence - Hypertension - Hyperlipidemia - Depression - Osteoarthritis Surgical History: - Esophageal biopsy Medications: - Cetirizine for allergic rhinitis - Albuterol as needed for respiratory symptoms - Omeprazole for gastroesophageal reflux disease - Famotidine for gastroesophageal reflux disease - Atorvastatin for hyperlipidemia - Aspirin for cardiovascular protection - Bupropion for smoking cessation - Hydroxyzine for dizziness and nausea Patient was informed and verbally consented to the use of an ambient scribe for clinic note documentation during this visit. [facility] Medical History (Updated 01/27/25 @ 17:18 by MOJGAN Leone) Abnormal endoscopy of upper gastrointestinal tract Allergic rhinitis Back pain COPD (chronic obstructive pulmonary disease) Family history of malignant hyperthermia Frequent headaches GERD (gastroesophageal reflux disease) History of pneumonia History of tachycardia Hyperlipidemia Liver cyst Nicotine dependence, cigarettes, uncomplicated Osteoporosis Pericardial effusion Rheumatoid arthritis Seborrheic keratoses Seropositive rheumatoid arthritis Sessile serrated polyp of colon Thyroid nodule Surgical History History of section History of colonoscopy (~08/18/22) History of dilation and curettage Family History (Updated 01/01/25 @ 13:26 by Erika Roman MA) Mother HTN (hypertension) Sister Heart disease Father No problems noted. Son Substance abuse Social History Household Members: Spouse and Children Housing: House Alcohol intake: current Alcohol intake frequency: a few times a month Alcohol type: wine and hard liquor Comment: Occassionally Patient Tobacco Use Status: Current everyday Tobacco user Tobacco use type: Cigarette Cigarettes Per Day: 7 Years Smoked: onset 13yo, 1ppd x 49yrs, now 1/4ppd - 40pyh e-Cigarette/Vaping Use: Currently Using Advance Directives Date on File: 01/07/20 service: No Current occupational status: retired Current occupational exposures/hazards: No Cognitive needs: No Hearing needs: No Vision needs: Yes Questionnaire PHQ-9 Over the last 2 weeks, how often have you been bothered by any of the following problems? 1. Little interest or pleasure in doing things: not at all 2. Feeling down, depressed, or hopeless: not at all 3. Trouble falling or staying asleep, or sleeping too much: not at all 4. Feeling tired or having little energy: not at all 5. Poor appetite or overeating: not at all 6. Feeling bad about yourself - or that you are a failure or have let yourself or your family down: not at all 7. Trouble concentrating on things, such as reading the newspaper or watching television: not at all 8. Moving or speaking so slowly that other people could have noticed. Or the opposite - being so fidgety or restless that you have been moving around a lot more than usual: not at all 9. Thoughts that you would be better off or of hurting yourself in some way: not at all Total score: 0 Depression Screening Interpretation: Negative Depression Screening Done: Yes Source: Developed by Drs. Gabriel Bourgeois, Macy All Lambert and colleagues, with an educational talia from [employer]. Thrive Questionnaire Date Thrive assessed: 01/01/25 I am a: Patient Within the past 12 months, did the food you bought not last and you didn't have the money to get more?: Never true Within the past 12 months, did you worry whether your food would run out before you got money to buy more?: Never true Do you have trouble paying for medicines?: No Do you have trouble getting transportation to medical appointments?: No Do you have trouble paying your heating and electricity bill?: No Do you have trouble taking care of your child, family member or friend?: No Do you have trouble with day-to-day activities such as bathing, preparing meals, shopping, managing finances, etc.?: No Are you currently unemployed and looking for a job?: No Are you interested in more education?: No THRIVE Score: 0 AUDIT C Alcohol Use Questionnaire (AUDIT-C) 1. How often do you have a drink containing alcohol?: Monthly or less 2. How many drinks containing alcohol do you have on a typical day when you are drinking?: 1 or 2 3. How often do you have six or more drinks on one occasion?: Less than monthly Total Score: 2 CADY-7 AMB Questionnaire CADY-7 Date CADY - 7 assessed: 01/01/25 Feeling nervous, anxious, or on edge: 0 = Not at all Not being able to stop or control worryin = Not at all Worrying too much about different things: 0 = Not at all Trouble relaxin = Not at all Being so restless that it is hard to sit still: 0 = Not at all Becoming easily annoyed or irritable: 0 = Not at all Feeling afraid as if something awful might happen: 0 = Not at all Total CADY-7 score (0-4 normal; 5-9 mild; 10-14 moderate; 15-21 severe): 0 Source: Developed by Drs. Gabriel Bourgeois, All Valencia and colleagues, with an educational talia from [employer]. Review of Systems Const Details: - Respiratory: Reports occasional use of albuterol inhaler, denies dyspnea - Neurological: Reports headaches for less than a week, denies persistent dizziness - Dermatological: Reports seborrheic keratosis, denies skin cancer - Musculoskeletal: Reports knee pain, denies recent joint swelling Physical exam (Primary Care) Vital Signs: Last Vital Signs Temp 97 F 01/01/25 10:45 Pulse 73 01/01/25 10:45 BP 126/74 01/01/25 10:45 Pulse Ox 99 01/01/25 10:45 Oxygen Delivery Method Room Air 01/01/25 10:45 BMI result Body Mass Index 28.1 GENERAL Well developed, Well nourished in no apparent distress HEENT Head-Normocephalic Eyes- PERRLA, EOMI, Conjuctiva clear, lids WNL Ears- Canals clear, TMs WNL Mouth/Throat-No lesions, no erythema, no exudate Neck- Supple, No lymphadenopathy, thyroid WNL RESPIRATORY Normal I:E, Clear to auscultation CARDIOVASCULAR Regular, rate and rhythm, No murmurs or rubs GASTROINTESTINAL Soft, nontender, normal bowel sounds, no masses MUSCULOSKELETAL Back- nontender Joints- no swelling or deformity SKIN Presence of seborrheic keratosis NEUROLOGICAL Gait normal PSYCHIATRIC Oriented to person, place and time Mood and affect WNL Appearance WNL Speech WNL Thought processes WNL Tobacco/Smoking Status: Tobacco use Status Tobacco use date assessed 01/01/25 01/01/25 10:46 Patient Tobacco Use Status Current everyday Tobacco 01/01/25 10:46 Tobacco use type Cigarette 01/01/25 10:46 e-Cigarette/Vaping Use Currently Using 01/01/25 10:46 PHQ-9: PHQ-9 Score PHQ-9: Total score 0 01/01/25 13:26 Depression Screening Interpretation: Negative Thrive Assessment: Date of Thrive Assessment Date Thrive assessed 01/01/25 01/01/25 10:46 Results Reviewed Results Reviewed: - Labs: Recent lab work showed slight increase in blood sugar levels - Imaging: Scheduled liver ultrasound in March - Imaging: Thyroid ultrasound planned due to nodules - Screening: Mammogram completed in June - Screening: Pap smear overdue, planned for follow-up visit Coding Level of Care Code Established Pt Est Pt Level 4 (19642) Patient Type Established Diagnoses Seropositive rheumatoid arthritis M05.9 Nicotine dependence, cigarettes, uncomplicated F17.210 Allergic rhinitis J30.9 Hyperlipidemia E78.5 Frequent headaches R51.9 Seborrheic keratoses L82.1 Health care maintenance Z00.00 GERD (gastroesophageal reflux disease) K21.9 Time Spent (min) 35 Comment Time spent on chart review, medication reconciliation. H&P, patient education and orders. Assessment & Plan Assessment & Plan (1) Seropositive rheumatoid arthritis: Code(s): M05.9 - Rheumatoid arthritis with rheumatoid factor, unspecified Category: Medical Plan: The patient is followed by rheumatology for rheumatoid arthritis and has a follow-up appointment scheduled with Dr. Knox on March 25. (2) Nicotine dependence, cigarettes, uncomplicated: Comment: (current smoker - onset 13yo, 1ppd x 49yrs, now 1/4ppd - 40pyh) Code(s): F17.210 - Nicotine dependence, cigarettes, uncomplicated Category: Medical Plan: The patient smokes 5 to 10 cigarettes daily and is on bupropion for smoking cessation, with a previous attempt to quit during a seven-week period. (3) Allergic rhinitis: Code(s): J30.9 - Allergic rhinitis, unspecified Category: Medical Plan: The patient uses cetirizine for allergic rhinitis and has been advised to consider switching to loratadine or levocetirizine if symptoms persist. Patient to follow up in 6 months or sooner if symptoms persist or worsen. (4) Hyperlipidemia: Code(s): E78.5 - Hyperlipidemia, unspecified Category: Medical Plan: The patient is managed with atorvastatin and aspirin for hypertension and hyperlipidemia. (5) Frequent headaches: Code(s): R51.9 - Headache, unspecified Category: Medical Plan: The patient reports headaches for less than a week, possibly related to a dental infection, and has a dental appointment scheduled for today. Patient to follow up as needed if symptoms persist or worsen. (6) Seborrheic keratoses: Code(s): L82.1 - Other seborrheic keratosis Category: Medical Plan: The patient has seborrheic keratosis, which is benign and requires no treatment. (7) Health care maintenance: Code(s): Z00.00 - Encounter for general adult medical examination without abnormal findings Plan: - Scheduled liver ultrasound in March - Due for colonoscopy in August - Mammogram completed in June - Pap smear overdue, planned for follow-up visit - Thyroid ultrasound planned due to nodules (8) GERD (gastroesophageal reflux disease): Code(s): K21.9 - Gastro-esophageal reflux disease without esophagitis Category: Medical Plan: The patient is on omeprazole and famotidine for gastroesophageal reflux disease and is scheduled for a liver ultrasound in March During the visit, we discussed the management of the patient's chronic conditions, including rheumatoid arthritis, allergic rhinitis, and gastroesophageal reflux disease. We reviewed her current medications and discussed the potential need to switch antihistamines if her symptoms persist. We also addressed her nicotine dependence and the use of bupropion for smoking cessation. The patient was advised to monitor her headaches and follow up with her dentist to rule out any dental causes. We planned for a follow-up visit in six months to reassess her conditions and perform a Pap smear. Orders: Orders US thyroid 01/01/25 E04.1 - Nontoxic single thyroid nodule Medications: New acebutolol 200 mg PO DAILY 90 caps 1RF bupropion HCl SR 150 mg PO DAILY 90 tabs 2RF coenzyme Q10 (CoQ-10) 100 mg PO DAILY 90 caps 2RF famotidine 40 mg PO DAILY PRN 90 tabs 2RF reflux aspirin (Adult Aspirin Regimen) 81 mg PO DAILY 90 tabs 2RF atorvastatin 20 mg PO BEDTIME 90 tabs 3RF hydroxyzine HCl 25 mg PO TID PRN 60 tabs 1RF itching Changed From albuterol sulfate 90 mcg/actuation 2 puffs inhalation Q4H PRN Shortness Of Breath Or Wheezing To albuterol sulfate 90 mcg/actuation (Ventolin HFA) 2 puffs inhalation Q4-6H PRN 8.5 grams 6RF shortness of breath or wheezing Refilled omeprazole 20 mg PO DAILY 90 caps 0RF 90 days Patient Instructions: - Continue current medications as prescribed. - Monitor headaches and follow up with the dentist. - Consider switching to loratadine or levocetirizine if allergic symptoms persist. - Schedule follow-up appointment in six months for reassessment and Pap smear.
== END 2025-01-01 13:53 | disposition home or self-care (01) ==
LOC: HO.HMCHD 13:09
PROVIDERS: PCP Physician Assistant; Visit Provider Physician Assistant Medical
DX: M05.9 Rheumatoid arthritis with rheumatoid factor, unspecified (principal); F17.210 Nicotine dependence, cigarettes, uncomplicated; J30.9 Allergic rhinitis, unspecified; E78.5 Hyperlipidemia, unspecified; R51.9 Headache, unspecified; L82.1 Other seborrheic keratosis; Z00.00 Encounter for general adult medical examination without abnormal findings; K21.9 Gastro-esophageal reflux disease without esophagitis

== ENCOUNTER → 2025-01-01 13:08 | Outpatient (BNVA) | payer OTHER, SELFPAY | PROVIDERS: PCP Physician Assistant; Visit Provider Physician Assistant Medical | DX: M05.79 Rheumatoid arthritis with rheumatoid factor of multiple sites without organ or systems involvement (principal); F17.210 Nicotine dependence, cigarettes, uncomplicated; J30.9 Allergic rhinitis, unspecified; E78.5 Hyperlipidemia, unspecified; R51.9 Headache, unspecified; L82.1 Other seborrheic keratosis; K21.9 Gastro-esophageal reflux disease without esophagitis | CPT/HCPCS: 99212 ==

== ENCOUNTER 2025-03-11 10:20 | Outpatient (REF) | payer OTHER, SELFPAY ==
[2025-03-11 10:33] LABS: MANUAL DIFF FLAG NO
[2025-03-11 10:54] LABS: Hematocrit 42.7 % (37.0-47.0); Hemoglobin 14.4 g/dl (12.0-16.0); Imm Gran Abs Auto 0.03 X10*3/uL (0.00-0.03); Imm Gran Pct Auto 0.4 % (0.0-0.4); Lymphocytes Absolute Auto 2.4 X10*3/uL (1.2-4.9); Mean Corpuscular HGB Conc 33.7 g/dl (31.0-35.0); Mean Corpuscular Hemoglobin 32.7 pg (27.0-33.0); Mean Corpuscular Volume 96.8 fL (80.0-98.0); NRBC Abs Auto 0.000 X10*3/uL (0.0-0.012); NRBC Pct Auto 0.0 /100WBC (0.0-0.2); Platelet Count 215 X10*3/uL (160-400); Red Blood Count 4.41 X10*6/uL (4.20-5.50); White Blood Count 6.8 X10*3/uL (4.8-10.8)
--- OUTSIDE RECORDS SUMMARY | 2025-03-11 11:36 | XMS_ITS | Clinical Summary ---
Author Organization [facility] ity Address [address] [place] [id number] Care Team Providers Care Museum Educator Name Role Phone Unavailable Primary Care Provider [...] Depression Screening 03/20/2024 COVID-19 Vaccine (1 - 2024-2 6 season) 2024 Influenza Vaccine (#1) 2024 RSV [...]
[2025-03-11 12:04] LABS: Alanine Aminotransferase 50 U/L (0-31); Albumin Level 4.4 g/dL (3.5-5.0); Alkaline Phosphatase 52 U/L (39-117); Anion Gap 12 (12-20); Aspartate Amino Transferase 36 U/L (5-31); Blood Urea Nitrogen 16 mg/dL (9-16); Calcium 8.9 mg/dL (8.4-10.2); Carbon Dioxide 27 mmol/L (22-29); Chloride 109 mmol/L (96-108); Cholesterol 232 mg/dL (<200); Estimated Glomerular Filt Rate 60; HDL Cholesterol 46 mg/dL (>40); Potassium 4.1 mmol/L (3.3-5.1); Sodium 144 mmol/L (135-145); Total Protein 6.9 g/dL (6.5-8.0); Triglycerides 185 mg/dL (<150)
== END 2025-03-11 10:21 | disposition home or self-care (01) ==
LOC: HO.LAB 10:20
PROVIDERS: PCP Physician Assistant; Visit Provider Student in an Organized Health Care Education/Training Program
DX: M05.9 Rheumatoid arthritis with rheumatoid factor, unspecified (principal); E55.9 Vitamin D deficiency, unspecified
CPT/HCPCS: 36415; 80053; 80061; 82306; 85025; 85652; 86140